=== PATIENT | male | born 1935 | race Caucasian/White ===

== ENCOUNTER → 2016-12-11 | Outpatient (CLI) | payer MEDICARE ==
[2016-12-11 11:29] LABS: ABSOLUTE BASOPHILS # (AUTO) 0.1 10^3/uL (0.0-0.2); ABSOLUTE EOSINOPHILS # (AUTO) 0.1 10^3/uL (0.0-0.6); ABSOLUTE LYMPHOCYTES (AUTO) 1.3 10^3/uL (0.5-4.7); ABSOLUTE MONOCYTES (AUTO) 0.5 10^3/uL (0.1-1.4); ABSOLUTE NEUT (AUTO) 3.5 10^3/uL (1.7-8.2); BASOPHILS % (AUTO) 0.9 % (0-2); EOSINOPHILS % (AUTO) 2.2 % (0-6); HEMOGLOBIN 16.8 g/dL (13.5-17.0); HGB HCT DIFFERENCE -0.6; LYMPHOCYTES % (AUTO) 23.3 % (13-45); MEAN CORPUSCULAR HEMOGLOBIN 31.4 pg (27.0-33.4); MEAN CORPUSCULAR HGB CONC 32.9 g/dL (32.0-36.0); MEAN CORPUSCULAR VOLUME 96 fl (80-97); MONOCYTES % (AUTO) 9.3 % (3-13); RED BLOOD COUNT 5.34 10^6/uL (4.35-5.55); RED CELL DISTRIBUTION WIDTH 16.8 % (11.5-14.0); SEGMENTED NEUTROPHILS % (AUTO) 64.3 % (42-78); WHITE BLOOD COUNT 5.4 10^3/uL (4.0-10.5)
[2016-12-11 11:30] LABS: APPEARANCE,URINE CLEAR; BILIRUBIN,URINE NEGATIVE (NEGATIVE); GLUCOSE, URINE NEGATIVE (NEGATIVE); KETONES,URINE NEGATIVE (NEGATIVE); LEUKOCYTE ESTERASE,URINE NEGATIVE (NEGATIVE); NITRITE,URINE NEGATIVE (NEGATIVE); PROTEIN,URINE 30 mg/dL (NEGATIVE); URINE SPECIFIC GRAVITY 1.011; UROBILINOGEN,URINE NEGATIVE mg/dL (<2.0)
[2016-12-11 11:50] LABS: ALANINE AMINOTRANSFERASE 40 U/L (21-72); ALBUMIN 3.8 g/dL (3.5-5.0); ALKALINE PHOSPHATASE 102 U/L (38-126); ANION GAP 12 (5-19); ASPARTATE AMINO TRANSFERASE 27 U/L (17-59); BILIRUBIN,TOTAL 0.9 mg/dL (0.2-1.3); BLOOD UREA NITROGEN 19 mg/dL (7-20); CALCIUM 9.4 mg/dL (8.4-10.2); CARBON DIOXIDE 22 mmol/L (22-30); CHLORIDE 106 mmol/L (98-107); CREATININE RESULT 1.07 mg/dL (0.52-1.25); GLUCOSE 119 mg/dL (75-110); POTASSIUM 4.4 mmol/L (3.6-5.0); SODIUM 140.3 mmol/L (137-145)
== END ==
LOC: OD 10:24
PROVIDERS: ATTEND Internal Medicine Cardiovascular Disease
DX: Z79.01 Long term (current) use of anticoagulants (principal); Z79.899 Other long term (current) drug therapy
CPT/HCPCS: 36415; 80048; 80076; 81001; 82272; 83735; 85025; 85730

== ENCOUNTER → 2017-03-13 | Outpatient (CLI) | payer MEDICARE ==
[2017-03-13 11:01] LABS: APPEARANCE,URINE CLEAR; BILIRUBIN,URINE NEGATIVE (NEGATIVE); GLUCOSE, URINE NEGATIVE (NEGATIVE); KETONES,URINE NEGATIVE (NEGATIVE); LEUKOCYTE ESTERASE,URINE NEGATIVE (NEGATIVE); NITRITE,URINE NEGATIVE (NEGATIVE); PROTEIN,URINE NEGATIVE (NEGATIVE); UROBILINOGEN,URINE NEGATIVE mg/dL (<2.0)
[2017-03-13 11:28] LABS: ABSOLUTE BASOPHILS # (AUTO) 0.1 10^3/uL (0.0-0.2); ABSOLUTE EOSINOPHILS # (AUTO) 0.1 10^3/uL (0.0-0.6); ABSOLUTE LYMPHOCYTES (AUTO) 1.4 10^3/uL (0.5-4.7); ABSOLUTE MONOCYTES (AUTO) 0.5 10^3/uL (0.1-1.4); ABSOLUTE NEUT (AUTO) 3.4 10^3/uL (1.7-8.2); BASOPHILS % (AUTO) 1.4 % (0-2); EOSINOPHILS % (AUTO) 2.4 % (0-6); HEMOGLOBIN 17.2 g/dL (13.5-17.0); HGB HCT DIFFERENCE 0.6; LYMPHOCYTES % (AUTO) 25.7 % (13-45); MEAN CORPUSCULAR HEMOGLOBIN 31.9 pg (27.0-33.4); MEAN CORPUSCULAR HGB CONC 33.7 g/dL (32.0-36.0); MEAN CORPUSCULAR VOLUME 95 fl (80-97); MONOCYTES % (AUTO) 9.5 % (3-13); RED BLOOD COUNT 5.39 10^6/uL (4.35-5.55); RED CELL DISTRIBUTION WIDTH 15.8 % (11.5-14.0); WHITE BLOOD COUNT 5.6 10^3/uL (4.0-10.5)
[2017-03-13 11:47] LABS: ALANINE AMINOTRANSFERASE 56 U/L (21-72); ALBUMIN 4.1 g/dL (3.5-5.0); ALKALINE PHOSPHATASE 126 U/L (38-126); ANION GAP 14 (5-19); ASPARTATE AMINO TRANSFERASE 46 U/L (17-59); BILIRUBIN,DIRECT 0.4 mg/dL (0.0-0.4); BILIRUBIN,TOTAL 0.9 mg/dL (0.2-1.3); BLOOD UREA NITROGEN 25 mg/dL (7-20); CALCIUM 9.4 mg/dL (8.4-10.2); CARBON DIOXIDE 25 mmol/L (22-30); CHLORIDE 105 mmol/L (98-107); CREATININE RESULT 1.12 mg/dL (0.52-1.25); GLUCOSE 118 mg/dL (75-110); POTASSIUM 4.7 mmol/L (3.6-5.0); SODIUM 143.6 mmol/L (137-145); TOTAL PROTEIN 7.5 g/dL (6.3-8.2)
== END ==
LOC: OD 10:12
PROVIDERS: ATTEND Internal Medicine Cardiovascular Disease
DX: Z79.01 Long term (current) use of anticoagulants (principal); Z79.899 Other long term (current) drug therapy
CPT/HCPCS: 36415; 80048; 80076; 81001; 82272; 85025; 85730

== ENCOUNTER 2017-05-20 23:35 | Emergency (ER) | payer BC, MEDICARE ==
[2017-05-21] MEDS ORDERED: LIDOCAINE 0.5%/EPINEPHRINE INJ 50 ML VIAL INJ ONE (01:53)
--- NOTE | 2017-05-21 01:55 | ER Document Report ---
ED Wound - General Chief Complaint: Fall, Head laceration Stated Complaint: FALL/HEAD LACERATION Time Seen by Provider: 05/21/17 01:48 Notes: Patient is an 82-year-old male who comes emergency department for chief complaint of mechanical fall with injury to the back of his head, he states that he went back into the house after watching fireworks, tripped, and fell against a shelf, hitting his head on the shelf. He denies fall to the ground, he denies any other injuries or locations of pain. He denies passing out, he is here with his [id number]. He denies vomiting, she states he is at his normal mental status. Patient has atrial fibrillation and takes Eliquis. Patient denies any focal numbness or weakness, incontinence, visual changes, or any other complaints. Tetanus UTD. TRAVEL OUTSIDE OF THE [place] IN LAST 30 DAYS: No - Related Data Allergies/Adverse Reactions: No Known Allergies Allergy (Verified 10/14/15 17:31) Past Medical History - General Information source: Patient - Social History Smoking Status: Never Smoker Chew tobacco use (# tins/day): No Drug Abuse: None Lives with: Family Family History: Reviewed & Not Pertinent - Past Medical History Cardiac Medical History: Reports: Hx Atrial Fibrillation, Hx Congestive Heart Failure, Hx Coronary Artery Disease, Hx Hypercholesterolemia, Hx Hypertension Denies: Hx Heart Attack Pulmonary Medical History: Reports: Hx Bronchitis Denies: Hx Asthma, Hx COPD, Hx Pneumonia Neurological Medical History: Denies: Hx Cerebrovascular Accident, Hx Seizures Renal/ Medical History: Denies: Hx Peritoneal Dialysis GI Medical History: Musculoskeltal Medical History: Reports Hx Arthritis Skin Medical History: Denies Hx MRSA Psychiatric Medical History: Reports: Hx Depression Infectious Medical History: Past Surgical History: Reports: Hx Orthopedic Surgery, Hx Pacemaker - Immunizations Immunizations up to date: Yes Hx Diphtheria, Pertussis, Tetanus Vaccination: Yes - pt thinks last tetanus was less than 5 years ago Hx Pneumococcal Vaccination: 08/17/09 Review of Systems - Review of Systems Constitutional: No symptoms reported EENT: No symptoms reported Cardiovascular: No symptoms reported Respiratory: No symptoms reported Gastrointestinal: No symptoms reported Genitourinary: No symptoms reported Male Genitourinary: No symptoms reported Musculoskeletal: See HPI Skin: See HPI Hematologic/Lymphatic: No symptoms reported Neurological/Psychological: No symptoms reported Physical Exam - Vital signs Vitals: Temp Pulse Resp BP Pulse Ox 98.2 F 60 16 114/72 97 05/21/17 00:57 05/21/17 00:57 05/21/17 00:57 05/21/17 00:57 05/21/17 00:57 Interpretation: Normal - General General appearance: Appears well, Alert In distress: None - Patient alert, smiling, talkative, oriented, well-appearing - HEENT Head: Normocephalic. No: Atraumatic - 2 cm vertical wound over the superior occipital area of the scalp. Mild surrounding ecchymosis, no other abnormalities noted Eyes: Normal Conjunctiva: Normal Extraocular movements intact: Yes Eyelashes: Normal Pupils: PERRL Ears: Normal External canal: Normal Tympanic membrane: Normal Sinus: Normal Nasal: Normal Mucous membranes: Normal Pharynx: Normal Neck: Normal - Respiratory Respiratory status: No respiratory distress Chest status: Nontender Breath sounds: Normal. No: Decreased air movement, Wheezing Chest palpation: Normal - Cardiovascular Rhythm: Regular. No: Tachycardia Heart sounds: Normal auscultation, S1 appreciated, S2 appreciated Murmur: No - Abdominal Inspection: Normal Distension: No distension Bowel sounds: Normal Tenderness: Nontender. No: Tender Organomegaly: No organomegaly - Back Back: Normal, Nontender. No: Vertebra tenderness - Cervical, thoracic, lumbar exam, moves all extremities without difficulty and full range of motion, normal distal neurovascular exam, no saddle anesthesia - Extremities General upper extremity: Normal inspection, Nontender, Normal color, Normal ROM , Normal temperature General lower extremity: Normal inspection, Nontender, Normal color, Normal ROM , Normal temperature, Normal weight bearing. No: Triston's sign - Neurological Neuro grossly intact: Yes Cognition: Normal. No: Confused, Inattentive Orientation: AAOx4. No: Disoriented to person, Disoriented to place, Disoriented to time, Disoriented to events Carol Coma Scale Eye Opening: Spontaneous Argillite Coma Scale Verbal: Oriented Carol Coma Scale Motor: Obeys Commands Craol Coma Scale Total: 15 Speech: Normal Cranial nerves: Normal Cerebellar coordination: Normal Motor strength normal: LUE, RUE, LLE, RLE Additional motor exam normals: Equal electric range assembler Sensory: Normal - Psychological Associated symptoms: Normal affect, Normal mood - Skin Skin Temperature: Warm Skin Moisture: Dry Skin Color: Normal Course - Re-evaluation Re-evalutation: Head CT performed because of the wound and blood thinner use. Neurological exam normal. No concerning neurological symptoms. Repaired with michelle without any difficulty. Discussed wound care, discussed head injury precautions in detail with patient and daughter, discussed close follow-up and return precautions. They state understanding and agreement. - Vital Signs Vital signs: Temp Pulse Resp BP Pulse Ox 98.2 F 62 16 117/69 97 05/21/17 00:57 05/21/17 03:27 05/21/17 03:27 05/21/17 03:05/21/17 03:27 Procedures - Laceration/Wound Repair superior occipital Wound length (cm): 2 Wound's Depth, Shape: Linear Laceration pre-procedure: Sterile PPE donned, Sterile drapes applied, Shur- Clens applied Anesthetic type: 1% Lidocaine w/epi Volume Anesthetic (mLs): 3 Wound explored: Clean, No foreign body removed Irrigated w/ Saline (mLs): 40 Wound Repaired With: Colcord Number of Sutures: 3 - michelle Layer Closure?: No Post-procedure NV exam normal: Yes Complications: No Discharge - Discharge Clinical Impression: Scalp laceration Qualifiers: Encounter type: initial encounter Qualified Code(s): S01.01XA - Laceration without foreign body of scalp, initial encounter Condition: Stable Disposition: HOME, SELF-CARE Additional Instructions: Cat scan imaging shows no concerning abnormality. Colcord need to be removed in 1 week at a medical facility, keep clean, clean with soap and water, avoid soaking. Follow-up with primary care. Return immediately for any concerning symptoms, see additional details listed with head injury precautions below. Head Injury Precautions At this point, there is no evidence that your head injury is serious. Observation is necessary, however. Take only clear liquids for the first few hours, unless told otherwise by the doctor. If no pain medication was prescribed, you may take acetaminophen according to the directions on the bottle. Do not take any medication that may alter your level of alertness (unless you've discussed it with the doctor first) . Limit activity for the first 24 hours. Bed rest is best. During the first 24 hours, check to see approximately every two to three hours that the patient is easily arousable, responds normally, and can perform common tasks such as walking without difficulty. Contact your doctor or go to the hospital if any of the following things occur: Persistent vomiting, difficulty in arousing the patient, worsening or continued headache, or failure to improve as expected. Head injuries can cause symptoms that persist for a few days or even a few weeks. Referrals: GISELLE DENSON MD [Primary Care Provider] - Follow up as needed
--- NOTE | 2017-05-21 02:27 | RADIOLOGY REPORT (SQ) ---
EXAM DESCRIPTION: CT HEAD WITHOUT COMPLETED DATE/TIME: 05/21/2017 2:07 am REASON FOR STUDY: head injury, laceration, on Eliquis COMPARISON: 11.28.15 TECHNIQUE: Axial images acquired through the brain without intravenous contrast. Images reviewed wi th bone, brain and subdural windows. Images stored on PACS. All CT scanners at this facility use dose modulation, iterative reconstruction, and/or weight based d osing when appropriate to reduce radiation dose to as low as reasonably achievable (ALARA). [facility]: Dose Right [facility]: CareDose [facility]: Dose Right [facility]: Teradose 4D [facility]: Smart [employer] RADIATION DOSE: Up-to-date CT equipment and radiation dose reduction techniques were employed. CTDIv ol: 55.3 mGy. DLP: 996 mGy-cm. mGy. LIMITATIONS: None. FINDINGS: VENTRICLES: Normal size and contour. CEREBRUM: No masses. No hemorrhage. No midline shift. Normal rodriguez/white matter differentiation. N o evidence for acute infarction. Mild -moderate cerebral volume loss. Mild white matter microangiop athy. Small lacunar infarct of the left putaminal. The CEREBELLUM: No masses. No hemorrhage. No alteration of density. No evidence for acute infarction. EXTRAAXIAL SPACES: No fluid collections. No masses. ORBITS AND GLOBE: No intra- or extraconal masses. Normal contour of globe without masses. CALVARIUM: No fracture. PARANASAL SINUSES: No fluid or mucosal thickening. SOFT TISSUES: No mass or hematoma. OTHER: No other significant finding. IMPRESSION: No acute findings. TECHNICAL DOCUMENTATION: JOB ID: [id number] Quality ID # [id number]: Final reports with documentation of one or more dose reduction techniques (e.g., Au tomated exposure control, adjustment of the mA and/or kV according to patient size, use of iterative reconstruction technique) 2010 [employer]- All Rights Reserved
[2017-05-21 03:28] VITALS: BP 117/69
== END 2017-05-21 03:27 | disposition home or self-care (01) ==
LOC: ER 23:35
PROC: 0HQ0XZZ Repair Scalp Skin, External Approach (ICD-10-PCS; principal; 2017-05-20)
DX: S01.01XA Laceration without foreign body of scalp, initial encounter (principal); W22.03XA Walked into furniture, initial encounter; Y93.89 Activity, other specified; Y92.009 Unspecified place in unspecified non-institutional (private) residence as the place of occurrence of the external cause; I48.91 Unspecified atrial fibrillation; Z79.01 Long term (current) use of anticoagulants; I25.10 Atherosclerotic heart disease of native coronary artery without angina pectoris; I10 Essential (primary) hypertension
CPT/HCPCS: 99284; 70450; 12001; J3490

== ENCOUNTER → 2017-06-11 | Outpatient (CLI) | payer MEDICARE ==
[2017-06-11 12:20] LABS: HEMATOCRIT 50.1 % (37.9-51.0); HEMOGLOBIN 17.4 g/dL (13.5-17.0); HGB HCT DIFFERENCE 2.1; MEAN CORPUSCULAR HEMOGLOBIN 32.6 pg (27.0-33.4); MEAN CORPUSCULAR HGB CONC 34.7 g/dL (32.0-36.0); MEAN CORPUSCULAR VOLUME 94 fl (80-97); RED BLOOD COUNT 5.34 10^6/uL (4.35-5.55); RED CELL DISTRIBUTION WIDTH 16.6 % (11.5-14.0); WHITE BLOOD COUNT 6.3 10^3/uL (4.0-10.5)
[2017-06-11 12:36] LABS: APPEARANCE,URINE CLEAR; BILIRUBIN,URINE NEGATIVE (NEGATIVE); GLUCOSE, URINE NEGATIVE (NEGATIVE); KETONES,URINE NEGATIVE (NEGATIVE); LEUKOCYTE ESTERASE,URINE NEGATIVE (NEGATIVE); NITRITE,URINE NEGATIVE (NEGATIVE); PROTEIN,URINE NEGATIVE (NEGATIVE); URINE SPECIFIC GRAVITY 1.009; UROBILINOGEN,URINE NEGATIVE mg/dL (<2.0)
[2017-06-11 12:46] LABS: ALANINE AMINOTRANSFERASE 33 U/L (21-72); ALBUMIN 4.3 g/dL (3.5-5.0); ALKALINE PHOSPHATASE 136 U/L (38-126); ANION GAP 13 (5-19); ASPARTATE AMINO TRANSFERASE 25 U/L (17-59); BILIRUBIN,DIRECT 0.3 mg/dL (0.0-0.4); BLOOD UREA NITROGEN 18 mg/dL (7-20); CALCIUM 9.3 mg/dL (8.4-10.2); CARBON DIOXIDE 27 mmol/L (22-30); CHLORIDE 101 mmol/L (98-107); CREATININE RESULT 1.17 mg/dL (0.52-1.25); GLUCOSE 154 mg/dL (75-110); POTASSIUM 4.6 mmol/L (3.6-5.0); SODIUM 141.3 mmol/L (137-145); TOTAL PROTEIN 7.8 g/dL (6.3-8.2)
== END ==
LOC: OD 11:12
PROVIDERS: ATTEND Internal Medicine Cardiovascular Disease
DX: Z79.01 Long term (current) use of anticoagulants (principal); Z79.899 Other long term (current) drug therapy
CPT/HCPCS: 36415; 80048; 80076; 81001; 82272; 85027; 85730

== ENCOUNTER → 2017-12-19 | Outpatient (CLI) | payer MEDICARE | LOC: LAB 17:55 | PROVIDERS: ATTEND Internal Medicine Cardiovascular Disease | DX: I48.2 Chronic atrial fibrillation (principal); Z79.01 Long term (current) use of anticoagulants; Z79.899 Other long term (current) drug therapy | CPT/HCPCS: 36415; 85730 ==

== ENCOUNTER → 2017-12-19 | Outpatient (CLI) | payer MEDICARE ==
[2017-12-19 15:34] LABS: MEAN CORPUSCULAR HEMOGLOBIN 31.8 pg (27.0-33.4); MEAN CORPUSCULAR HGB CONC 33.8 g/dL (32.0-36.0); MEAN CORPUSCULAR VOLUME 94 fl (80-97); PLATELET COUNT 151 10^3/uL (150-450); RED BLOOD COUNT 5.97 10^6/uL (4.35-5.55); RED CELL DISTRIBUTION WIDTH 16.2 % (11.5-14.0); WHITE BLOOD COUNT 5.2 10^3/uL (4.0-10.5)
[2017-12-19 15:44] LABS: HEMATOCRIT 56.1 % (37.9-51.0)
[2017-12-19 15:53] LABS: ALANINE AMINOTRANSFERASE 59 U/L (21-72); ALBUMIN 4.5 g/dL (3.5-5.0); ALKALINE PHOSPHATASE 111 U/L (38-126); ANION GAP 10 (5-19); ASPARTATE AMINO TRANSFERASE 39 U/L (17-59); BILIRUBIN,DIRECT 0.5 mg/dL (0.0-0.4); BILIRUBIN,TOTAL 0.8 mg/dL (0.2-1.3); BLOOD UREA NITROGEN 31 mg/dL (7-20); CALCIUM 10.1 mg/dL (8.4-10.2); CARBON DIOXIDE 29 mmol/L (22-30); CHLORIDE 104 mmol/L (98-107); GLUCOSE 125 mg/dL (75-110); POTASSIUM 4.5 mmol/L (3.6-5.0); SODIUM 143.3 mmol/L (137-145); TOTAL PROTEIN 7.7 g/dL (6.3-8.2)
[2017-12-19 16:18] LABS: APPEARANCE,URINE CLEAR; BILIRUBIN,URINE NEGATIVE (NEGATIVE); COLOR,URINE YELLOW; GLUCOSE, URINE NEGATIVE (NEGATIVE); KETONES,URINE NEGATIVE (NEGATIVE); LEUKOCYTE ESTERASE,URINE NEGATIVE (NEGATIVE); NITRITE,URINE NEGATIVE (NEGATIVE); PROTEIN,URINE NEGATIVE (NEGATIVE); UROBILINOGEN,URINE NEGATIVE mg/dL (<2.0)
== END ==
LOC: OD 14:25
PROVIDERS: ATTEND Internal Medicine Cardiovascular Disease
DX: I48.2 Chronic atrial fibrillation (principal); Z79.01 Long term (current) use of anticoagulants; Z79.899 Other long term (current) drug therapy
CPT/HCPCS: 36415; 80048; 80076; 81001; 82272; 85027

== ENCOUNTER → 2018-02-19 | Outpatient (CLI) | payer MEDICARE ==
[2018-02-19 14:06] LABS: APPEARANCE,URINE CLEAR; BILIRUBIN,URINE NEGATIVE (NEGATIVE); COLOR,URINE YELLOW; GLUCOSE, URINE NEGATIVE (NEGATIVE); KETONES,URINE NEGATIVE (NEGATIVE); LEUKOCYTE ESTERASE,URINE NEGATIVE (NEGATIVE); NITRITE,URINE NEGATIVE (NEGATIVE); PROTEIN,URINE NEGATIVE (NEGATIVE); URINE SPECIFIC GRAVITY 1.011; UROBILINOGEN,URINE NEGATIVE mg/dL (<2.0)
[2018-02-19 14:09] LABS: ALANINE AMINOTRANSFERASE 37 U/L (21-72); ALBUMIN 4.3 g/dL (3.5-5.0); ALKALINE PHOSPHATASE 100 U/L (38-126); ANION GAP 10 (5-19); ASPARTATE AMINO TRANSFERASE 27 U/L (17-59); BILIRUBIN,DIRECT 0.2 mg/dL (0.0-0.4); BILIRUBIN,TOTAL 0.5 mg/dL (0.2-1.3); BLOOD UREA NITROGEN 28 mg/dL (7-20); CARBON DIOXIDE 30 mmol/L (22-30); CHLORIDE 101 mmol/L (98-107); GLUCOSE 104 mg/dL (75-110); POTASSIUM 5.3 mmol/L (3.6-5.0); SODIUM 140.6 mmol/L (137-145); TOTAL PROTEIN 7.3 g/dL (6.3-8.2)
== END ==
LOC: OD 12:44
PROVIDERS: ATTEND Internal Medicine Cardiovascular Disease
DX: I48.2 Chronic atrial fibrillation (principal); Z79.01 Long term (current) use of anticoagulants; Z79.899 Other long term (current) drug therapy
CPT/HCPCS: 36415; 80048; 80076; 81001; 82272; 85730

== ENCOUNTER → 2018-05-25 | Outpatient (CLI) | payer MEDICARE ==
[2018-05-25 16:39] LABS: HEMATOCRIT 52.5 % (37.9-51.0); HEMOGLOBIN 17.9 g/dL (13.5-17.0); MEAN CORPUSCULAR HEMOGLOBIN 32.5 pg (27.0-33.4); MEAN CORPUSCULAR HGB CONC 34.1 g/dL (32.0-36.0); MEAN CORPUSCULAR VOLUME 95 fl (80-97); PLATELET COUNT 162 10^3/uL (150-450); RED BLOOD COUNT 5.52 10^6/uL (4.35-5.55); RED CELL DISTRIBUTION WIDTH 15.3 % (11.5-14.0); WHITE BLOOD COUNT 5.6 10^3/uL (4.0-10.5)
[2018-05-25 17:41] LABS: ALANINE AMINOTRANSFERASE 33 U/L (21-72); ALBUMIN 4.2 g/dL (3.5-5.0); ALKALINE PHOSPHATASE 99 U/L (38-126); ANION GAP 13 (5-19); ASPARTATE AMINO TRANSFERASE 27 U/L (17-59); BILIRUBIN,DIRECT 0.4 mg/dL (0.0-0.4); BILIRUBIN,TOTAL 0.8 mg/dL (0.2-1.3); BLOOD UREA NITROGEN 20 mg/dL (7-20); CALCIUM 9.6 mg/dL (8.4-10.2); CARBON DIOXIDE 25 mmol/L (22-30); CHLORIDE 105 mmol/L (98-107); GLUCOSE 166 mg/dL (75-110); POTASSIUM 4.9 mmol/L (3.6-5.0); SODIUM 142.8 mmol/L (137-145); TOTAL PROTEIN 7.5 g/dL (6.3-8.2)
[2018-05-26 17:59] LABS: APPEARANCE,URINE CLEAR; BILIRUBIN,URINE NEGATIVE (NEGATIVE); COLOR,URINE YELLOW; GLUCOSE, URINE NEGATIVE (NEGATIVE); KETONES,URINE NEGATIVE (NEGATIVE); LEUKOCYTE ESTERASE,URINE NEGATIVE (NEGATIVE); NITRITE,URINE NEGATIVE (NEGATIVE); PROTEIN,URINE NEGATIVE (NEGATIVE); URINE SPECIFIC GRAVITY 1.012; UROBILINOGEN,URINE NEGATIVE mg/dL (<2.0)
== END ==
LOC: OD 15:20
PROVIDERS: ATTEND Internal Medicine Cardiovascular Disease
DX: I48.2 Chronic atrial fibrillation (principal); Z79.01 Long term (current) use of anticoagulants; Z79.899 Other long term (current) drug therapy
CPT/HCPCS: 36415; 80048; 80076; 81001; 82272; 85027; 85730

== ENCOUNTER 2018-08-21 16:36 | Observation (INO) | payer MEDICARE ==
[2018-08-21 17:54] LABS: ABSOLUTE EOSINOPHILS # (AUTO) 0.2 10^3/uL (0.0-0.6); ABSOLUTE LYMPHOCYTES (AUTO) 1.7 10^3/uL (0.5-4.7); ABSOLUTE MONOCYTES (AUTO) 0.8 10^3/uL (0.1-1.4); ABSOLUTE NEUT (AUTO) 4.4 10^3/uL (1.7-8.2); BASOPHILS % (AUTO) 0.6 % (0-2); EOSINOPHILS % (AUTO) 2.3 % (0-6); HEMATOCRIT 45.9 % (37.9-51.0); HEMOGLOBIN 15.9 g/dL (13.5-17.0); MEAN CORPUSCULAR HEMOGLOBIN 32.7 pg (27.0-33.4); MEAN CORPUSCULAR HGB CONC 34.6 g/dL (32.0-36.0); MEAN CORPUSCULAR VOLUME 94 fl (80-97); MONOCYTES % (AUTO) 11.1 % (3-13); PLATELET COUNT 134 10^3/uL (150-450); RED BLOOD COUNT 4.86 10^6/uL (4.35-5.55); RED CELL DISTRIBUTION WIDTH 16.3 % (11.5-14.0); TOTAL CELLS COUNTED % (AUTO) 100 %
--- NOTE | 2018-08-21 17:55 | ER Document Report ---
ED General - General Chief Complaint: Back Pain Stated Complaint: BACK PAIN Time Seen by Provider: 08/21/18 16:55 Mode of Arrival: Medic Information source: Patient, Relative Notes: This is an 83-year-old man with a hypertension, chronic lower extremity swelling (left greater than right), CHF, atrial fibrillation (chronic Eliquis) who presents to the emergency room with inability to ambulate. Patient states he did have pain in his back earlier but denies any pain right now. Patient's sister states that he is not been able to ambulate for 3 weeks. Patient does live alone. He states he has had increasing swelling of the lower extremities and is just unable to get up. Current Meds: Diltiazem ER 120 daily Digoxin: 0.125 daily Asp 81 mg daily Metoprolol 25 mg daily Allopurinol 300 mg daily Eliquis 5 mg daily Lasix 40 mg daily Primary CARE doctor: Dr. Caraballo TRAVEL OUTSIDE OF THE [place] IN LAST 30 DAYS: No - HPI Onset: Last week Onset/Duration: Gradual Quality of pain: Dull Severity: Mild Pain Level: 1 Associated symptoms: denies: Chest pain, Shortness of breath Exacerbated by: Denies Relieved by: Denies Similar symptoms previously: Yes Recently seen / treated by doctor: No - Related Data Allergies/Adverse Reactions: No Known Allergies Allergy (Verified 08/21/18 16:51) Past Medical History - General Information source: Patient - Social History Smoking Status: Never Smoker Cigarette use (# per day): No Chew tobacco use (# tins/day): No Frequency of alcohol use: None Drug Abuse: None Lives with: Family Family History: Reviewed & Not Pertinent Patient has suicidal ideation: No Patient has homicidal ideation: No - Past Medical History Cardiac Medical History: Reports: Hx Atrial Fibrillation, Hx Congestive Heart Failure, Hx Coronary Artery Disease, Hx Hypercholesterolemia, Hx Hypertension Denies: Hx Heart Attack Pulmonary Medical History: Reports: Hx Bronchitis Denies: Hx Asthma, Hx COPD, Hx Pneumonia Neurological Medical History: Denies: Hx Cerebrovascular Accident, Hx Seizures Renal/ Medical History: Denies: Hx Peritoneal Dialysis GI Medical History: Musculoskeletal Medical History: Reports Hx Arthritis Skin Medical History: Denies Hx MRSA Psychiatric Medical History: Reports: Hx Depression Infectious Medical History: Past Surgical History: Reports: Hx Orthopedic Surgery, Hx Pacemaker - Immunizations Immunizations up to date: Yes Hx Diphtheria, Pertussis, Tetanus Vaccination: Yes - pt thinks last tetanus was less than 5 years ago Hx Pneumococcal Vaccination: 08/17/09 Review of Systems - Review of Systems Constitutional: denies: Chills, Fever EENT: No symptoms reported Cardiovascular: No symptoms reported Respiratory: No symptoms reported Gastrointestinal: No symptoms reported Genitourinary: No symptoms reported Male Genitourinary: No symptoms reported Musculoskeletal: See HPI Skin: See HPI Hematologic/Lymphatic: No symptoms reported Neurological/Psychological: No symptoms reported Physical Exam - Vital signs Vitals: Temp Pulse Resp BP Pulse Ox 99.8 F 62 18 104/48 L 97 08/21/18 16:42 08/21/18 16:42 08/21/18 16:42 08/21/18 16:42 08/21/18 16:42 Notes: Physical exam: GENERAL: Patient is alert and oriented x3, answering questions, no acute distress HEAD: Atraumatic, normocephalic. EYES: Pupils equal round and reactive to light, extraocular movements intact, sclera anicteric, conjunctiva are normal. ENT: TMs normal, nares patent, oropharynx clear without exudates. Moist mucous membranes. NECK: Normal range of motion, supple without obvious mass or JVD. LUNGS: Breath sounds clear to auscultation bilaterally and equal. No wheezes rales or rhonchi. HEART: Regular rate and rhythm without murmurs, rubs or gallops. ABDOMEN: Soft, normoactive bowel sounds. No tenderness to palpation. No guarding, no rebound. No masses appreciated. EXTREMITIES: She has marked swelling of both lower extremities: Left greater than right. He has been evaluated for this in the past. He is limited for range of motion because of the marked swelling. Sensory is intact. NEUROLOGICAL: Cranial nerves II through XII grossly intact. Normal speech, moving all extremities. PSYCH: Normal mood, normal affect. SKIN: Warm, Dry, normal turgor, no rashes or lesions noted. Course - Vital Signs Vital signs: Temp Pulse Resp BP Pulse Ox 97.8 F 62 16 123/75 96 08/21/18 21:39 08/21/18 16:42 08/21/18 21:01 08/21/18 21:00 08/21/18 21:01 - Laboratory Result Diagrams: 08/21/18 17:41 08/21/18 17:41 Laboratory results interpreted by me: 08/21/18 08/21/18 08/21/18 17:41 17:41 17:41 RDW 16.3 H Plt Count 134 L BUN 23 H Est GFR (Non-Af Amer) 56 L Glucose 122 H Direct Bilirubin 0.5 H NT-Pro-B Natriuret Pep 1690 H Discharge - Discharge Clinical Impression: Decompensated heart failure, Ambulatory dysfunction Condition: Stable Disposition: ADMITTED INPATIENT Admitting Provider: Ilya Walker is covering over the weekend Unit Admitted: Telemetry
--- NOTE | 2018-08-21 18:16 | RADIOLOGY REPORT (SQ) ---
EXAM DESCRIPTION: CHEST SINGLE VIEW COMPLETED DATE/TIME: 08/21/2018 6:03 pm REASON FOR STUDY: increased swelling COMPARISON: AP CHEST 10/17/2015, 10/14/2015 EXAM PARAMETERS: NUMBER OF VIEWS: One view. TECHNIQUE: Single frontal radiographic view of the chest acquired. RADIATION DOSE: NA LIMITATIONS: None. FINDINGS: LUNGS AND PLEURA: No opacities, masses or pneumothorax. No pleural effusion. MEDIASTINUM AND HILAR STRUCTURES: No masses. Contour normal. HEART AND VASCULAR STRUCTURES: Stable moderate cardiomegaly BONES: No acute findings. HARDWARE: Left subclavian single lead pacemaker unchanged OTHER: No other significant finding. IMPRESSION: No acute findings. Stable cardiomegaly and unchanged left-sided single lead pacemaker TECHNICAL DOCUMENTATION: JOB ID: [id number] 1968 [employer]- All Rights Reserved Reading location - IP/workstation name: [email or web address]
[2018-08-21 18:57] LABS: ALANINE AMINOTRANSFERASE 36 U/L (21-72); ALBUMIN 3.7 g/dL (3.5-5.0); ALKALINE PHOSPHATASE 93 U/L (38-126); ANION GAP 8 (5-19); ASPARTATE AMINO TRANSFERASE 32 U/L (17-59); BILIRUBIN,DIRECT 0.5 mg/dL (0.0-0.4); BILIRUBIN,TOTAL 0.8 mg/dL (0.2-1.3); BLOOD UREA NITROGEN 23 mg/dL (7-20); CARBON DIOXIDE 28 mmol/L (22-30); CHLORIDE 103 mmol/L (98-107); GLUCOSE 122 mg/dL (75-110); POTASSIUM 4.4 mmol/L (3.6-5.0); SODIUM 138.8 mmol/L (137-145); TOTAL PROTEIN 6.9 g/dL (6.3-8.2)
--- NOTE | 2018-08-21 19:06 | RADIOLOGY REPORT (SQ) ---
EXAM DESCRIPTION: CT LUMBAR SPINE WITHOUT COMPLETED DATE/TIME: 08/21/2018 6:10 pm REASON FOR STUDY: back pain COMPARISON: CT thoracic spine same date TECHNIQUE: Axial images acquired through the lumbar spine without intravenous contrast. Images revi ewed with lung, soft tissue and bone windows. Reconstructed coronal and sagittal MPR images reviewed . All images stored on PACS. All CT scanners at this facility use dose modulation, iterative reconstruction, and/or weight based d osing when appropriate to reduce radiation dose to as low as reasonably achievable (ALARA). [facility]: Dose Right [facility]: CareDose [facility]: Dose Right [facility]: Teradose 4D [facility]: [employer] RADIATION DOSE: 26 mGy. LIMITATIONS: None. FINDINGS: SEGMENTATION: Normal. No transitional anatomy. ALIGNMENT: Normal. VERTEBRAL BODIES: No fractures. No dislocation. No acute findings. DISCS: Diffuse degenerative disc changes with disc space loss of height throughout the lumbar spine. No significant central or foraminal encroachment T11-12, T12-L1, or L1-2. At L2-3, mild central canal stenosis results from broad diffuse disc bulge. There is mild bilateral inferior foraminal narrowing. At L3-4, mild central canal stenosis results from mild diffuse disc bulge facet and ligament hypertro phy. Mild bilateral foraminal narrowing is present. At L4-5, mild central canal stenosis results from broad diffuse posterior disc bulge and bulky bilate ral facet and ligament hypertrophy. Mild bilateral foraminal narrowing is present. At L5-S1, no significant central or foraminal narrowing is present. PEDICLES, TRANSVERSE PROCESSES: No fractures. No dislocation. No acute findings. FACETS, POSTERIOR ELEMENTS: No fractures. No dislocation. No spinal stenosis. HARDWARE: None in the spine. VISUALIZED RIBS: No fractures. SOFT TISSUES: No significant or acute finding in adjacent soft tissues. OTHER: No other significant finding. IMPRESSION: Mild diffuse degenerative changes. No acute fracture or malalignment. TECHNICAL DOCUMENTATION: JOB ID: [id number] Quality ID # [id number]: Final reports with documentation of one or more dose reduction techniques (e.g., Au tomated exposure control, adjustment of the mA and/or kV according to patient size, use of iterative reconstruction technique) 2010 [employer]- All Rights Reserved Reading location - IP/workstation name: [email or web address]
--- NOTE | 2018-08-21 19:08 | RADIOLOGY REPORT (SQ) ---
EXAM DESCRIPTION: CT THORACIC SPINE WITHOUT COMPLETED DATE/TIME: 08/21/2018 6:10 pm REASON FOR STUDY: back pain COMPARISON: CT lumbar spine same date TECHNIQUE: Axial images acquired through the thoracic spine without intravenous contrast. Images re viewed with lung, soft tissue and bone windows. Reconstructed coronal and sagittal MPR images review ed. Images stored on PACS. All CT scanners at this facility use dose modulation, iterative reconstruction, and/or weight based d osing when appropriate to reduce radiation dose to as low as reasonably achievable (ALARA). [facility]: Dose Right [facility]: CareDose [facility]: Dose Right [facility]: Teradose 4D [facility]: [employer] RADIATION DOSE: CT Rad equipment meets quality standard of care and radiation dose reduction techniq ues were employed. CTDIvol: 38.8 mGy. DLP: 1461 mGy-cm. mGy. LIMITATIONS: None. FINDINGS: VISUALIZED LUNGS: No acute opacities. No pneumothorax. SOFT TISSUES: No soft tissue swelling. No masses. VERTEBRAL BODIES: No fractures. No dislocation. No acute findings. DISCS: Diffuse disc space loss of height with vertebral body endplate sclerosis. No bony central or foraminal stenosis. ALIGNMENT: Normal. TRANSVERSE PROCESSES, POSTERIOR ELEMENTS: No fractures. No dislocation. No acute findings. HARDWARE: None in the spine. VISUALIZED RIBS: No fractures. OTHER: No other significant finding. IMPRESSION: Diffuse degenerative disc changes without significant thoracic spine central canal steno sis. No acute thoracic wedge compression deformity TECHNICAL DOCUMENTATION: JOB ID: [id number] Quality ID # [id number]: Final reports with documentation of one or more dose reduction techniques (e.g., Au tomated exposure control, adjustment of the mA and/or kV according to patient size, use of iterative reconstruction technique) 2010 [employer]- All Rights Reserved Reading location - IP/workstation name: [email or web address]
[2018-08-21] MEDS ORDERED: FUROSEMIDE INJ/PF 40 MG/4 ML SDV IV ONE (21:38)
[2018-08-21 23:12] LABS: INTERNATIONAL RATION (INR) 1.11; PROTHROMBIN TIME 14.9 SEC (11.4-15.4)
[2018-08-21 23:13] LABS: PARTIAL THROMBOPLASTIN TIME 36.9 SEC (23.5-35.8)
[2018-08-21 23:27] LABS: CREATINE KINASE MB 1.65 ng/mL (<4.55); TROPONIN I 0.016 ng/mL
[2018-08-21 23:33] LABS: FREE T4 (FREE THYROXINE) 1.13 ng/dL (0.78-2.19)
[2018-08-21 23:47] LABS: THYROID STIMULATING HORMONE 3.24 uIU/mL (0.47-4.68)
[2018-08-22 00:47] LABS: ARTERIAL BLOOD BASE EXCESS 1.2 mmol/L; ARTERIAL BLOOD H2CO3 1.09 mmol/L (1.05-1.35); ARTERIAL BLOOD HCO3 24.8 mmol/L (20-24); ARTERIAL BLOOD O2 SATURATION 96.3 % (94-98); ARTERIAL BLOOD PCO2 36.1 mmHg (35-45); ARTERIAL BLOOD PH 7.45 (7.35-7.45); ARTERIAL BLOOD PO2 79.7 mmHg (80-100); ARTERIAL BLOOD TOTAL CO2 25.9 mmol/L (23-27)
[2018-08-22 00:59] LABS: ARTERIAL BLOOD FIO2 ROOM AIR
[2018-08-22] MEDS ORDERED: ACETAMINOPHEN 325 MG TABLET PO PRN (01:06)
[2018-08-22 01:21] LABS: APPEARANCE,URINE CLEAR; BILIRUBIN,URINE NEGATIVE (NEGATIVE); COLOR,URINE COLORLESS; GLUCOSE, URINE NEGATIVE (NEGATIVE); KETONES,URINE NEGATIVE (NEGATIVE); LEUKOCYTE ESTERASE,URINE NEGATIVE (NEGATIVE); NITRITE,URINE NEGATIVE (NEGATIVE); PROTEIN,URINE NEGATIVE (NEGATIVE); URINE SPECIFIC GRAVITY 1.006; UROBILINOGEN,URINE NEGATIVE mg/dL (<2.0)
[2018-08-22 05:35] LABS: ABSOLUTE EOSINOPHILS # (AUTO) 0.1 10^3/uL (0.0-0.6); ABSOLUTE LYMPHOCYTES (AUTO) 1.6 10^3/uL (0.5-4.7); ABSOLUTE MONOCYTES (AUTO) 0.5 10^3/uL (0.1-1.4); ABSOLUTE NEUT (AUTO) 2.6 10^3/uL (1.7-8.2); BASOPHILS % (AUTO) 0.8 % (0-2); EOSINOPHILS % (AUTO) 2.6 % (0-6); HEMATOCRIT 47.8 % (37.9-51.0); HEMOGLOBIN 16.6 g/dL (13.5-17.0); LYMPHOCYTES % (AUTO) 33.2 % (13-45); MEAN CORPUSCULAR HEMOGLOBIN 33.1 pg (27.0-33.4); MEAN CORPUSCULAR HGB CONC 34.7 g/dL (32.0-36.0); MEAN CORPUSCULAR VOLUME 95 fl (80-97); MONOCYTES % (AUTO) 9.7 % (3-13); PLATELET COUNT 117 10^3/uL (150-450); RED BLOOD COUNT 5.02 10^6/uL (4.35-5.55); RED CELL DISTRIBUTION WIDTH 16.3 % (11.5-14.0); SEGMENTED NEUTROPHILS % (AUTO) 53.7 % (42-78); TOTAL CELLS COUNTED % (AUTO) 100 %; WHITE BLOOD COUNT 4.9 10^3/uL (4.0-10.5)
[2018-08-22 05:55] LABS: ALANINE AMINOTRANSFERASE 35 U/L (21-72); ALBUMIN 3.6 g/dL (3.5-5.0); ALKALINE PHOSPHATASE 99 U/L (38-126); ANION GAP 8 (5-19); ASPARTATE AMINO TRANSFERASE 35 U/L (17-59); BILIRUBIN,DIRECT 0.5 mg/dL (0.0-0.4); BILIRUBIN,TOTAL 0.7 mg/dL (0.2-1.3); BLOOD UREA NITROGEN 23 mg/dL (7-20); CARBON DIOXIDE 29 mmol/L (22-30); CHLORIDE 103 mmol/L (98-107); CHOLESTEROL 152.25 mg/dL (0-200); CREATINE KINASE 126 U/L (55-170); GLUCOSE 130 mg/dL (75-110); TOTAL PROTEIN 6.8 g/dL (6.3-8.2); TRIGLYCERIDES 264 mg/dL (<150)
[2018-08-22 06:08] LABS: DIRECT LDL 90 mg/dL (<100); VLDL CHOLESTEROL 52.8 mg/dL (10-31)
[2018-08-22 06:12] LABS: CREATINE KINASE MB 1.62 ng/mL (<4.55); TROPONIN I 0.021 ng/mL
[2018-08-22] MEDS: ENOXAPARIN SODIUM INJ 40 MG/0.4 ML DISP.SYRIN SUBCUT SCH (09:46)
[2018-08-22 11:53] LABS: CREATINE KINASE MB 1.27 ng/mL (<4.55); TROPONIN I 0.017 ng/mL
--- NOTE | 2018-08-22 17:58 | PDOC H&P ---
History of Present Illness Admission Date/PCP: 08/21/18 21:47 DHEERAJ DENSON MD History of Present Illness: DARLING NAVARRO is a 83 year old male.He has chronic systolic heart failure he came to the emergency room for evaluation of increased lower extremity swelling , back pain, he was evaluated in the emergency room, the ED physician felt that patient needed to be admitted for CHF management the emergency room physician was concerned the patient lives alone by himself and that he cannot take care of himself.When I saw him on the floor, he denies any orthopnea, PND, he has shortness of breath on exertion Past Medical History Cardiac Medical History: Reports: Atrial Fibrillation, Congestive Heart Failure , Coronary Artery Disease, Hyperlipidema, Hypertension Denies: Myocardial Infarction Pulmonary Medical History: Reports: Bronchitis GI Medical History: Musculoskeltal Medical History: Reports: Arthritis Psychiatric Medical History: Reports: Depression Hematology: Past Surgical History Past Surgical History: Reports: Orthopedic Surgery, Pacemaker Social History Lives with: Family Smoking Status: Never Smoker Frequency of Alcohol Use: None Hx Recreational Drug Use: No Hx Prescription Drug Abuse: No - Advance Directive Resuscitation Status: Do Not Resuscitate Family History Family History: Reviewed & Not Pertinent Parental Family History Reviewed: Yes Children Family History Reviewed: Yes Sibling(s) Family History Reviewed.: Yes Medication/Allergy Home Medications: Diltiazem HCl [Cardizem Cd 120 mg Capsule] 120 mg PO DAILY 01/20/12 Digoxin [Lanoxin 0.125 mg Tablet] 0.125 mg PO DAILY 01/21/12 Apixaban [Eliquis 5 mg Tablet] 5 mg PO Q12 #60 tablet 01/09/15 Aspirin [Adult Low Dose Aspirin EC] 81 mg PO DAILY 10/14/15 Allopurinol [Zyloprim] 300 mg PO DAILY 08/21/18 Furosemide [Lasix] 40 mg PO DAILY 08/21/18 Metoprolol Succinate 25 mg PO DAILY 08/21/18 Allergies/Adverse Reactions: No Known Allergies Allergy (Verified 08/21/18 16:51) Review of Systems Constitutional: ABSENT: chills, fever(s), headache(s), weight gain, weight loss Eyes: ABSENT: visual disturbances Ears: ABSENT: hearing changes Cardiovascular: PRESENT: dyspnea on exertion Respiratory: ABSENT: cough, hemoptysis Gastrointestinal: ABSENT: abdominal pain, constipation, diarrhea, hematemesis, hematochezia, nausea, vomiting Genitourinary: ABSENT: dysuria, hematuria Musculoskeletal: ABSENT: joint swelling Integumentary: ABSENT: rash, wounds Neurological: ABSENT: abnormal gait, abnormal speech, confusion, dizziness, focal weakness, syncope Psychiatric: ABSENT: anxiety, depression, homidical ideation, suicidal ideation Endocrine: ABSENT: cold intolerance, heat intolerance, menstrual abnormalities, polydipsia, polyuria Hematologic/Lymphatic: ABSENT: easy bleeding, easy bruising, lymphadenopathy Physical Exam Vital Signs: Temp Pulse Resp BP Pulse Ox 97.7 F 59 L 16 124/65 100 08/22/18 15:41 08/22/18 15:41 08/22/18 15:41 08/22/18 15:41 08/22/18 15:41 Intake & Output 08/21/18 08/22/18 08/23/18 06:59 06:59 06:59 Intake Total 621 Output Total 1125 950 Balance -1125 -329 Weight 94.3 kg General appearance: PRESENT: no acute distress Head exam: PRESENT: atraumatic, normocephalic Eye exam: PRESENT: PERRLA Mouth exam: PRESENT: moist, tongue midline Neck exam: PRESENT: full ROM Respiratory exam: PRESENT: clear to auscultation celso Cardiovascular exam: PRESENT: RRR, +S1, +S2, systolic murmur Vascular exam: PRESENT: normal capillary refill GI/Abdominal exam: PRESENT: normal bowel sounds, soft Rectal exam: PRESENT: deferred Extremities exam: PRESENT: pedal edema Neurological exam: PRESENT: alert, CN II-XII grossly intact. ABSENT: motor sensory deficit Psychiatric exam: PRESENT: appropriate affect, normal mood Skin exam: PRESENT: dry, intact, warm Results Laboratory Results: 08/22/18 04:33 08/22/18 04:33 08/21/18 08/21/18 08/22/18 22:35 22:35 00:19 WBC RBC Hgb Hct MCV MCH MCHC RDW Plt Count Seg Neutrophils % Lymphocytes % Monocytes % Eosinophils % Basophils % Absolute Neutrophils Absolute Lymphocytes Absolute Monocytes Absolute Eosinophils Absolute Basophils Carbonic Acid HCO3/H2CO3 Ratio ABG pH ABG pCO2 ABG pO2 ABG HCO3 ABG O2 Saturation ABG Base Excess FiO2 Sodium Potassium Chloride Carbon Dioxide Anion Gap BUN Creatinine Est GFR ( Amer) Est GFR (Non-Af Amer) Glucose Calcium Magnesium 2.0 Total Bilirubin AST ALT Alkaline Phosphatase Total Protein Albumin Triglycerides Cholesterol LDL Cholesterol Direct VLDL Cholesterol HDL Cholesterol TSH 3.24 Free T4 1.13 Urine Color COLORLESS Urine Appearance CLEAR Urine pH 7.0 Ur Specific [place] 1.006 Urine Protein NEGATIVE Urine Glucose (UA) NEGATIVE Urine Ketones NEGATIVE Urine Blood NEGATIVE Urine Nitrite NEGATIVE Ur Leukocyte Esterase NEGATIVE 08/22/18 08/22/18 08/22/18 00:35 04:33 04:33 WBC 4.9 RBC 5.02 Hgb 16.6 Hct 47.8 MCV 95 MCH 33.1 MCHC 34.7 RDW 16.3 H Plt Count 117 L Seg Neutrophils % 53.7 Lymphocytes % 33.2 Monocytes % 9.7 Eosinophils % 2.6 Basophils % 0.8 Absolute Neutrophils 2.6 Absolute Lymphocytes 1.6 Absolute Monocytes 0.5 Absolute Eosinophils 0.1 Absolute Basophils 0.0 Carbonic Acid 1.09 HCO3/H2CO3 Ratio 22:1 ABG pH 7.45 ABG pCO2 36.1 ABG pO2 79.7 L ABG HCO3 24.8 H ABG O2 Saturation 96.3 ABG Base Excess 1.2 FiO2 ROOM AIR Sodium 140.0 Potassium 4.0 Chloride 103 Carbon Dioxide 29 Anion Gap 8 BUN 23 H Creatinine 1.10 Est GFR ( Amer) > 60 Est GFR (Non-Af Amer) > 60 Glucose 130 H Calcium 9.0 Magnesium Total Bilirubin 0.7 AST 35 ALT 35 Alkaline Phosphatase 99 Total Protein 6.8 Albumin 3.6 Triglycerides 264 H Cholesterol 152.25 LDL Cholesterol Direct 90 VLDL Cholesterol 52.8 H HDL Cholesterol 22 L TSH Free T4 Urine Color Urine Appearance Urine pH Ur Specific [place] Urine Protein Urine Glucose (UA) Urine Ketones Urine Blood Urine Nitrite Ur Leukocyte Esterase 08/21/18 08/21/18 08/22/18 22:35 22:35 04:33 Creatine Kinase 112 126 CK-MB (CK-2) 1.65 Troponin I 0.016 NT-Pro-B Natriuret Pep 1320 H 08/22/18 08/22/18 08/22/18 04:33 10:13 10:13 Creatine Kinase 92 CK-MB (CK-2) 1.62 1.27 Troponin I 0.021 0.017 NT-Pro-B Natriuret Pep Impressions: Chest X-Ray 08/21/18 17:25 IMPRESSION: No acute findings. Stable cardiomegaly and unchanged left-sided single lead pacemaker Lumbar Spine CT 08/21/18 17:26 IMPRESSION: Mild diffuse degenerative changes. No acute fracture or malalignment. Thoracic Spine CT 08/21/18 17:26 IMPRESSION: Diffuse degenerative disc changes without significant thoracic spine central canal stenosis. No acute thoracic wedge compression deformity Assessment & Plan - Diagnosis (1) Acute systolic heart failure Is this a current diagnosis for this admission?: Yes Plan: Patient is admitted for management of acute systolic heart failure (2) Atrial fibrillation Qualifiers: Atrial fibrillation type: chronic Qualified Code(s): I48.2 - Chronic atrial fibrillation Is this a current diagnosis for this admission?: Yes
--- NOTE | 2018-08-22 19:27 | EKG REPORT ---
SEVERITY:- ABNORMAL ECG - VENTRICULAR-PACED COMPLEXES NONSPECIFIC IVCD WITH LAD : Confirmed by: Jocy Mims 22-Aug-2018 19:25:51
[2018-08-22] MEDS: APIXABAN 5 MG TABLET PO SCH (21:22)
[2018-08-22] MEDS: FUROSEMIDE 40 MG TABLET PO SCH (21:22)
[2018-08-23 05:35] LABS: ABSOLUTE BASOPHILS # (AUTO) 0.1 10^3/uL (0.0-0.2); ABSOLUTE EOSINOPHILS # (AUTO) 0.2 10^3/uL (0.0-0.6); ABSOLUTE LYMPHOCYTES (AUTO) 1.6 10^3/uL (0.5-4.7); ABSOLUTE MONOCYTES (AUTO) 0.6 10^3/uL (0.1-1.4); ABSOLUTE NEUT (AUTO) 3.1 10^3/uL (1.7-8.2); EOSINOPHILS % (AUTO) 3.1 % (0-6); HEMATOCRIT 47.1 % (37.9-51.0); HEMOGLOBIN 16.4 g/dL (13.5-17.0); LYMPHOCYTES % (AUTO) 29.4 % (13-45); MEAN CORPUSCULAR HEMOGLOBIN 33.1 pg (27.0-33.4); MEAN CORPUSCULAR HGB CONC 34.8 g/dL (32.0-36.0); MEAN CORPUSCULAR VOLUME 95 fl (80-97); MONOCYTES % (AUTO) 10.1 % (3-13); PLATELET COUNT 100 10^3/uL (150-450); RED BLOOD COUNT 4.95 10^6/uL (4.35-5.55); RED CELL DISTRIBUTION WIDTH 16.2 % (11.5-14.0); SEGMENTED NEUTROPHILS % (AUTO) 56.4 % (42-78); TOTAL CELLS COUNTED % (AUTO) 100 %; WHITE BLOOD COUNT 5.5 10^3/uL (4.0-10.5)
[2018-08-23] MEDS: DILTIAZEM HCL 120 MG CAP.SR.24H PO SCH (09:16)
[2018-08-23] MEDS: APIXABAN 5 MG TABLET PO SCH ×2 (09:17→21:58)
[2018-08-23] MEDS: ASPIRIN 81 MG TABLET, ENT COATED PO SCH (09:17)
[2018-08-23] MEDS: DIGOXIN 0.125 MG TABLET PO SCH (09:17)
[2018-08-23] MEDS: ENOXAPARIN SODIUM INJ 40 MG/0.4 ML DISP.SYRIN SUBCUT SCH (09:18)
[2018-08-23] MEDS: METOPROLOL SUCCINATE 25 MG TAB.SR.24H PO SCH (09:18)
[2018-08-23] MEDS: ALLOPURINOL 300 MG TABLET PO SCH (09:18)
[2018-08-23] MEDS: FUROSEMIDE 40 MG TABLET PO SCH ×2 (09:18→21:58)
--- NOTE | 2018-08-24 09:12 | PDOC PROGRESS REPORT ---
Subjective Progress Note for:: 08/24/18 Subjective:: Patient was admitting in the hospital for the congestive heart failure and weakness Patient is currently doing well Patient's denied any chest pain denied any shortness of the breath Patient's was complaining of back pain yesterday currently all stable Patients have ongoing weakness problem currently live at home and the patient's to have a significant history of the rhabdomyolysis in the past with ongoing muscular weakness seen by the neurologist and at this point patients probably get a benefit to go to the rehab's Reason For Visit: ACUTE SYSTOLIC HEART FAILURE,LYMPHEDEMA OF THE Physical Exam Vital Signs: Temp Pulse Resp BP Pulse Ox 98.0 F 60 14 128/94 H 96 08/24/18 07:42 08/24/18 07:42 08/24/18 07:42 08/24/18 07:42 08/24/18 07:42 Intake & Output 08/23/18 08/24/18 08/25/18 06:59 06:59 06:59 Intake Total 887 740 Output Total 2900 500 -2012 240 Weight 94.7 kg 91.6 kg General appearance: PRESENT: no acute distress, well-developed, well-nourished Head exam: PRESENT: atraumatic, normocephalic Eye exam: PRESENT: conjunctiva pink, EOMI, PERRLA. ABSENT: scleral icterus Ear exam: PRESENT: normal external ear exam Mouth exam: PRESENT: moist, tongue midline Neck exam: PRESENT: full ROM. ABSENT: carotid bruit, JVD, lymphadenopathy, thyromegaly Respiratory exam: PRESENT: clear to auscultation celso Cardiovascular exam: PRESENT: RRR. ABSENT: diastolic murmur, rubs, systolic murmur Pulses: PRESENT: normal dorsalis pedis pul, +2 pedal pulses bilateral Vascular exam: PRESENT: normal capillary refill GI/Abdominal exam: PRESENT: normal bowel sounds, soft. ABSENT: distended, guarding, mass, organolmegaly, rebound, tenderness Rectal exam: PRESENT: deferred Extremities exam: ABSENT: pedal edema Neurological exam: PRESENT: alert, awake, oriented to person, oriented to place , oriented to time, oriented to situation, CN II-XII grossly intact. ABSENT: motor sensory deficit Psychiatric exam: PRESENT: appropriate affect, normal mood. ABSENT: homicidal ideation, suicidal ideation Skin exam: PRESENT: dry, intact, warm. ABSENT: cyanosis, rash Results Laboratory Results: 08/23/18 04:48 08/22/18 04:33 08/21/18 08/21/18 08/22/18 22:35 22:35 04:33 Creatine Kinase 112 126 CK-MB (CK-2) 1.65 Troponin I 0.016 NT-Pro-B Natriuret Pep 1320 H 08/22/18 08/22/18 08/22/18 04:33 10:13 10:13 Creatine Kinase 92 CK-MB (CK-2) 1.62 1.27 Troponin I 0.021 0.017 NT-Pro-B Natriuret Pep Impressions: Chest X-Ray 08/21/18 17:25 IMPRESSION: No acute findings. Stable cardiomegaly and unchanged left-sided single lead pacemaker Lumbar Spine CT 08/21/18 17:26 IMPRESSION: Mild diffuse degenerative changes. No acute fracture or malalignment. Thoracic Spine CT 08/21/18 17:26 IMPRESSION: Diffuse degenerative disc changes without significant thoracic spine central canal stenosis. No acute thoracic wedge compression deformity Assessment & Plan - Diagnosis (1) Weakness Is this a current diagnosis for this admission?: Yes Plan: Continues to physical therapy patients probably get a benefit to the short-term rehab facilities (2) Hypertension Qualifiers: Hypertension type: essential hypertension Qualified Code(s): I10 - Essential (primary) hypertension Is this a current diagnosis for this admission?: Yes Plan: Currently all stable (3) Hyperlipidemia Qualifiers: Hyperlipidemia type: unspecified Qualified Code(s): E78.5 - Hyperlipidemia , unspecified Is this a current diagnosis for this admission?: Yes Plan: Patient unable to take any kind of a statin which makes the patient's severe rhabdomyolysis (4) Acute systolic heart failure Is this a current diagnosis for this admission?: Yes Plan: Continues to Lasix continues to current medications will consider Dr. larry the patient's cardiology (5) Atrial fibrillation Qualifiers: Atrial fibrillation type: chronic Qualified Code(s): I48.2 - Chronic atrial fibrillation Is this a current diagnosis for this admission?: Yes Plan: Continues to Eliquis (6) Cardiomyopathy Qualifiers: Cardiomyopathy type: unspecified Qualified Code(s): I42.9 - Cardiomyopathy , unspecified Is this a current diagnosis for this admission?: Yes Plan: Will follow with cardiology - Time Time Spent with patient: 15-24 minutes Medications reviewed and adjusted accordingly: Yes Anticipated discharge: SNF Within: within 24 hours - Inpatient Certification Medical Necessity: Need Close Monitoring Due to Risk of Patient Decompensation Post Hospital Care: D/C Community Dietitian Documentation - Plan Summary Plan Summary: Continues to current medications Patients expressed with full code as per nurses Consider discharge planning for the rehab facilities
[2018-08-24] MEDS: ENOXAPARIN SODIUM INJ 40 MG/0.4 ML DISP.SYRIN SUBCUT SCH (10:06)
[2018-08-24] MEDS: ALLOPURINOL 300 MG TABLET PO SCH (10:31)
[2018-08-24] MEDS: DIGOXIN 0.125 MG TABLET PO SCH (10:31)
[2018-08-24] MEDS: DILTIAZEM HCL 120 MG CAP.SR.24H PO SCH (10:31)
[2018-08-24] MEDS: ASPIRIN 81 MG TABLET, ENT COATED PO SCH (10:31)
[2018-08-24] MEDS: APIXABAN 5 MG TABLET PO SCH ×2 (10:31→21:47)
[2018-08-24] MEDS: FUROSEMIDE 40 MG TABLET PO SCH ×2 (10:31→21:47)
[2018-08-24] MEDS: METOPROLOL SUCCINATE 25 MG TAB.SR.24H PO SCH (10:32)
--- NOTE | 2018-08-24 12:17 | XCELERA REPORT ---
[address] [address] Transthoracic Echocardiogram Report Name: DARLING NAVARRO Age: 83 yrs Gender: Male : 1935 Patient Status: Inpatient Patient Location: [address] [place] [address] Study Date: 08/24/2018 09:08 AM Height: 67 in Weight: 212 lb BSA: 2.1 m2 Procedure: A two-dimensional transthoracic echocardiogram with color flow and Doppler was performed. The study was technically difficult with many images being suboptimal in quality. Reason For Study: chf History: CHF. Ordering Physician: SABRINA POLLOCK Performed By: Tray Asencio Interpretation Summary CHF The left ventricle is normal in size. There is mild concentric left ventricular hypertrophy. LV EF is 60% Left ventricular systolic function is normal. LV diastolic function not assessed. Suspect hypokinesis of LV apical segments. There is no thrombus. The right ventricle is mildly dilated. The right ventricular systolic function is borderline reduced. The left atrium is moderately dilated. A patent foramen ovale is present. ( With L to R shunt.) There is no evidence of mitral valve prolapse. There is no mitral valve stenosis. There is a mild amount of mitral regurgitation There is no aortic valve stenosis There is no LVOT obstruction. No aortic regurgitation is present. There is no tricuspid stenosis. There is a mild to moderate amount of tricuspid regurgitation There is moderate pulmonary hypertension by echo RVSP is 57 mm of Hg , with RA mean of 10. There is no pulmonic valvular stenosis. There is no pulmonic valvular regurgitation. There is no pericardial effusion. MMode/2D Measurements & Calculations RVDd: 4.4 cm LVIDd: 5.0 cm FS: 33.8 % Ao root diam: 3.2 cm IVSd: 1.3 cm LVIDs: 3.3 cm EDV(Teich): 120.6 ml Ao root area: 8.2 cm2 LVPWd: 1.2 cm ESV(Teich): 45.4 ml LA dimension: 5.0 cm EF(Teich): 62.4 % Doppler Measurements & Calculations MV E max manuela: MV P1/2t max manuela: Ao V2 max: LV V1 max P.9 cm/sec 100.4 cm/sec 125.7 cm/sec 5.1 mmHg MV P1/2t: 55.3 msec Ao max P.3 mmHgLV V1 max: MVA(P1/2t): 4.0 cm2 112.4 cm/sec MV dec slope: 532.4 cm/sec2 MV dec time: 0.17 sec PA V2 max: TR max manuela: MV P1/2t-pr_phl: 65.6 cm/sec 321.7 cm/sec 55.3 msec PA max PG: TR max P.4 mmHg 1.7 mmHg Left Ventricle The left ventricle is normal in size. There is mild concentric left ventricular hypertrophy. LV EF is 60%. Left ventricular systolic function is normal. LV diastolic function not assessed. Suspect hypokinesis of LV apical segments. There is no thrombus. There is no ventricular septal defect visualized. Right Ventricle The right ventricle is mildly dilated. The right ventricular systolic function is borderline reduced. Atria The right atrium is normal. The left atrium is moderately dilated. A patent foramen ovale is present. ( With L to R shunt.). Mitral Valve There is no evidence of mitral valve prolapse. There is no vegetation seen on the mitral valve. There is no mitral valve stenosis. There is a mild amount of mitral regurgitation. Aortic Valve There is no aortic valvular vegetation. There is no aortic valve stenosis. There is no LVOT obstruction. There is aortic sclerosis without aortic stenosis. No aortic regurgitation is present. Tricuspid Valve There is no tricuspid stenosis. There is a mild to moderate amount of tricuspid regurgitation. There is moderate pulmonary hypertension by echo. RVSP is 57 mm of Hg , with RA mean of 10. Pulmonic Valve There is no pulmonic valvular stenosis. There is no pulmonic valvular regurgitation. Great Vessels The aortic root is normal size. Effusions There is no pericardial effusion. : SABRINA POLLOCK > Adela Russell
[2018-08-25 05:57] LABS: ABSOLUTE BASOPHILS # (AUTO) 0.1 10^3/uL (0.0-0.2); ABSOLUTE EOSINOPHILS # (AUTO) 0.2 10^3/uL (0.0-0.6); ABSOLUTE LYMPHOCYTES (AUTO) 1.8 10^3/uL (0.5-4.7); ABSOLUTE MONOCYTES (AUTO) 0.6 10^3/uL (0.1-1.4); BASOPHILS % (AUTO) 1.2 % (0-2); HEMOGLOBIN 16.7 g/dL (13.5-17.0); LYMPHOCYTES % (AUTO) 26.8 % (13-45); MEAN CORPUSCULAR HGB CONC 34.8 g/dL (32.0-36.0); MEAN CORPUSCULAR VOLUME 95 fl (80-97); MONOCYTES % (AUTO) 9.2 % (3-13); PLATELET COUNT 140 10^3/uL (150-450); RED BLOOD COUNT 5.06 10^6/uL (4.35-5.55); RED CELL DISTRIBUTION WIDTH 16.3 % (11.5-14.0); SEGMENTED NEUTROPHILS % (AUTO) 59.8 % (42-78); TOTAL CELLS COUNTED % (AUTO) 100 %; WHITE BLOOD COUNT 6.7 10^3/uL (4.0-10.5)
[2018-08-25 06:15] LABS: ANION GAP 10 (5-19); BLOOD UREA NITROGEN 32 mg/dL (7-20); CALCIUM 9.3 mg/dL (8.4-10.2); CARBON DIOXIDE 28 mmol/L (22-30); CHLORIDE 100 mmol/L (98-107); GLUCOSE 141 mg/dL (75-110); POTASSIUM 4.5 mmol/L (3.6-5.0); SODIUM 137.6 mmol/L (137-145)
--- NOTE | 2018-08-25 08:15 | PDOC TRANSFER SUMMARY ---
General - Admit/Disc Date/PCP Admission Date/Primary Care Provider: 08/21/18 21:47 DHEERAJ DENSON MD Discharge Date: 08/25/18 - Discharge Diagnosis (1) Weakness Is this a current diagnosis for this admission?: Yes Summary: Patients require a rehab facility (2) Hypertension Is this a current diagnosis for this admission?: Yes Summary: Currently all stable (3) Hyperlipidemia Is this a current diagnosis for this admission?: Yes Summary: he is unable to take any statin making the severe rhabdomyolysis of pleased to not put any statin (4) Acute systolic heart failure Is this a current diagnosis for this admission?: Yes Summary: Currently all stable's as per discussed with the Dr. Sequeira and the patient's cardiology (5) Atrial fibrillation Is this a current diagnosis for this admission?: Yes Summary: on Eliquis (6) Cardiomyopathy Is this a current diagnosis for this admission?: Yes Summary: Clear all stable (7) Lymphedema Is this a current diagnosis for this admission?: Yes Summary: Patient seen by vascular surgery in the past suggested elastic stocking - Additional Information Resuscitation Status: Do Not Resuscitate Discharge Diet: Cardiac Discharge Activity: Activity As Tolerated, Balance Activity w/Rest, Weigh Daily Home Medications: Diltiazem HCl [Cardizem Cd 120 mg Capsule] 120 mg PO DAILY 01/20/12 Digoxin [Lanoxin 0.125 mg Tablet] 0.125 mg PO DAILY 01/21/12 Apixaban [Eliquis 5 mg Tablet] 5 mg PO Q12 #60 tablet 01/09/15 Aspirin [Adult Low Dose Aspirin EC] 81 mg PO DAILY 10/14/15 Allopurinol [Zyloprim] 300 mg PO DAILY 08/21/18 Furosemide [Lasix] 40 mg PO DAILY 08/21/18 Metoprolol Succinate 25 mg PO DAILY 08/21/18 History of Present Illness Admission Date/PCP: 08/21/18 21:47 DHEERAJ DENSON MD Patient complains of: Weakness and short of breath History of Present Illness: DARLING NAVARRO is a 83 year old male Admitting in the hospital because of the acute systolic heart failure and generalized weakness unable to walk Hospital Course Hospital Course: Is a 83-year-old male's with a significant history of the congestive heart failure cardiomyopathy chronic A. fib chronic lymphedema history of the severe rhabdomyolysis due to the statin therapy and multiple other medical issues currently live by himself came to the emergency department with a complaint of generalized weakness and shortness of the breath and patient was diagnosed with acute congestive heart failure Patient was put on IV Lasix and switch to p.o. Lasix Patient's echocardiogram was all stable Patient's currently denied any chest pain denied any shortness of the breath Patient's have ongoing chronic lymphedema in the leg she is on stable Patient's otherwise have a generalized weakness very limited activity before the hospital admissions anyway Patients probably get a benefit to the rehab facilities Discussed the case with the patient's cardiology Dr. Sequeira and he reviewed the chart and suggest that no need for any further interventions Follow outpatient Discussed with the patient's family and patient discharged to the rehab facilities Fall precautions Physical Exam Vital Signs: Temp Pulse Resp BP Pulse Ox 97.7 F 60 16 122/72 99 08/25/18 07:27 08/25/18 07:27 08/25/18 07:27 08/25/18 07:27 08/25/18 07:27 Intake & Output 08/24/18 08/25/18 08/26/18 06:59 06:59 06:59 Intake Total 740 320 Output Total 500 300 Balance 240 20 Weight 91.6 kg 92.8 kg General appearance: PRESENT: no acute distress, well-developed, well-nourished Head exam: PRESENT: atraumatic, normocephalic Eye exam: PRESENT: conjunctiva pink, EOMI, PERRLA. ABSENT: scleral icterus Ear exam: PRESENT: normal external ear exam Mouth exam: PRESENT: moist, tongue midline Neck exam: ABSENT: carotid bruit, JVD, lymphadenopathy, thyromegaly Respiratory exam: PRESENT: clear to auscultation celso. ABSENT: rales, rhonchi, wheezes Cardiovascular exam: PRESENT: RRR. ABSENT: diastolic murmur, rubs, systolic murmur Pulses: PRESENT: normal dorsalis pedis pul Vascular exam: PRESENT: normal capillary refill GI/Abdominal exam: PRESENT: normal bowel sounds, soft. ABSENT: distended, guarding, mass, organolmegaly, rebound, tenderness Rectal exam: PRESENT: deferred Extremities exam: PRESENT: full ROM. ABSENT: calf tenderness, clubbing, pedal edema Neurological exam: PRESENT: alert, awake, oriented to person, oriented to place , oriented to time, oriented to situation, CN II-XII grossly intact. ABSENT: motor sensory deficit Psychiatric exam: PRESENT: appropriate affect, normal mood. ABSENT: homicidal ideation, suicidal ideation Skin exam: PRESENT: dry, intact, warm. ABSENT: cyanosis, rash Results Laboratory Results: 08/25/18 05:12 08/25/18 05:12 08/25/18 08/25/18 05:12 05:12 WBC 6.7 RBC 5.06 Hgb 16.7 Hct 48.0 MCV 95 MCH 33.0 MCHC 34.8 RDW 16.3 H Plt Count 140 L Seg Neutrophils % 59.8 Lymphocytes % 26.8 Monocytes % 9.2 Eosinophils % 3.0 Basophils % 1.2 Absolute Neutrophils 4.0 Absolute Lymphocytes 1.8 Absolute Monocytes 0.6 Absolute Eosinophils 0.2 Absolute Basophils 0.1 Sodium 137.6 Potassium 4.5 Chloride 100 Carbon Dioxide 28 Anion Gap 10 BUN 32 H Creatinine 1.19 Est GFR ( Amer) > 60 Est GFR (Non-Af Amer) 58 L Glucose 141 H Calcium 9.3 08/22/18 00:19 Clean Catch Midstream Urine Culture - Final Mixed Urogenital Ally 08/21/18 08/21/18 08/22/18 22:35 22:35 04:33 Creatine Kinase 112 126 CK-MB (CK-2) 1.65 Troponin I 0.016 NT-Pro-B Natriuret Pep 1320 H 08/22/18 08/22/18 08/22/18 04:33 10:13 10:13 Creatine Kinase 92 CK-MB (CK-2) 1.62 1.27 Troponin I 0.021 0.017 NT-Pro-B Natriuret Pep 08/25/18 05:12 Creatine Kinase CK-MB (CK-2) Troponin I NT-Pro-B Natriuret Pep 584 H Impressions: Chest X-Ray 08/21/18 17:25 IMPRESSION: No acute findings. Stable cardiomegaly and unchanged left-sided single lead pacemaker Lumbar Spine CT 08/21/18 17:26 IMPRESSION: Mild diffuse degenerative changes. No acute fracture or malalignment. Thoracic Spine CT 08/21/18 17:26 IMPRESSION: Diffuse degenerative disc changes without significant thoracic spine central canal stenosis. No acute thoracic wedge compression deformity Transfer Plan - Time Spent with Patient Time spent with patient: Greater than 30 Minutes Qualifiers - * PATIENT BEING DISCHARGED WITH ANY OF THE FOLLOWING DIAGNOSIS: No, Heart Failure VTE patient discharged on overlapping Therapy?: Yes OR Pt discharged ACEI/ARBS?: Yes HF Pt being discharged on ACEI for LVEF less than 40%?: Yes Reason(s) for not prescribing ACEI:: Drug declined by patient HF Pt being discharged on ARBS for LVEF less than 40%?: Yes HF Pt with Afib discharged with Warfarin?: Yes HF Pt discharged on evidence-based Beta Yumiko:: Yes Plan Time Spent: Greater than 30 Minutes - Discharge to the rehab facilities
[2018-08-25] MEDS: ASPIRIN 81 MG TABLET, ENT COATED PO SCH (09:40)
[2018-08-25] MEDS: METOPROLOL SUCCINATE 25 MG TAB.SR.24H PO SCH (09:40)
[2018-08-25] MEDS: FUROSEMIDE 40 MG TABLET PO SCH ×2 (09:41→22:10)
[2018-08-25] MEDS: DILTIAZEM HCL 120 MG CAP.SR.24H PO SCH (09:41)
[2018-08-25] MEDS: APIXABAN 5 MG TABLET PO SCH ×2 (09:42→22:09)
[2018-08-25] MEDS: ALLOPURINOL 300 MG TABLET PO SCH (09:42)
[2018-08-25] MEDS: DIGOXIN 0.125 MG TABLET PO SCH (09:43)
[2018-08-26 07:03] LABS: ANION GAP 12 (5-19); BLOOD UREA NITROGEN 34 mg/dL (7-20); CALCIUM 9.3 mg/dL (8.4-10.2); CARBON DIOXIDE 27 mmol/L (22-30); CHLORIDE 101 mmol/L (98-107); GLUCOSE 142 mg/dL (75-110)
--- NOTE | 2018-08-26 09:18 | PDOC PROGRESS REPORT ---
Subjective Progress Note for:: 08/26/18 Subjective:: Patient is currently doing well denied any chest pain denied any shortness of the breath patients waiting to the transfer to the nursing facilities Reason For Visit: ACUTE SYSTOLIC HEART FAILURE,LYMPHEDEMA OF THE Physical Exam Vital Signs: Temp Pulse Resp BP Pulse Ox 97.7 F 61 16 117/78 98 08/26/18 07:40 08/26/18 07:40 08/26/18 07:40 08/26/18 07:40 08/26/18 07:40 Intake & Output 08/25/18 08/26/18 08/27/18 06:59 06:59 06:59 Intake Total 320 1399 Output Total 300 1000 Balance 20 399 Weight 92.8 kg 82.7 kg General appearance: PRESENT: no acute distress, well-developed, well-nourished Head exam: PRESENT: atraumatic, normocephalic Eye exam: PRESENT: conjunctiva pink, EOMI, PERRLA. ABSENT: scleral icterus Ear exam: PRESENT: normal external ear exam Mouth exam: PRESENT: moist, tongue midline Neck exam: PRESENT: full ROM. ABSENT: carotid bruit, JVD, lymphadenopathy, thyromegaly Respiratory exam: PRESENT: clear to auscultation celso Cardiovascular exam: PRESENT: RRR. ABSENT: diastolic murmur, rubs, systolic murmur Pulses: PRESENT: normal dorsalis pedis pul, +2 pedal pulses bilateral Vascular exam: PRESENT: normal capillary refill GI/Abdominal exam: PRESENT: normal bowel sounds, soft. ABSENT: distended, guarding, mass, organolmegaly, rebound, tenderness Rectal exam: PRESENT: deferred Neurological exam: PRESENT: alert, awake, oriented to person, oriented to place , oriented to time, oriented to situation, CN II-XII grossly intact. ABSENT: motor sensory deficit Psychiatric exam: PRESENT: appropriate affect, normal mood. ABSENT: homicidal ideation, suicidal ideation Skin exam: PRESENT: dry, intact, warm. ABSENT: cyanosis, rash Results Laboratory Results: 08/25/18 05:12 08/26/18 06:25 08/26/18 06:25 Sodium 140.0 Potassium 4.0 Chloride 101 Carbon Dioxide 27 Anion Gap 12 BUN 34 H Creatinine 1.13 Est GFR ( Amer) > 60 Est GFR (Non-Af Amer) > 60 Glucose 142 H Calcium 9.3 08/21/18 08/21/18 08/22/18 22:35 22:35 04:33 Creatine Kinase 112 126 CK-MB (CK-2) 1.65 Troponin I 0.016 NT-Pro-B Natriuret Pep 1320 H 08/22/18 08/22/18 08/22/18 04:33 10:13 10:13 Creatine Kinase 92 CK-MB (CK-2) 1.62 1.27 Troponin I 0.021 0.017 NT-Pro-B Natriuret Pep 08/25/18 05:12 Creatine Kinase CK-MB (CK-2) Troponin I NT-Pro-B Natriuret Pep 584 H Impressions: Chest X-Ray 08/21/18 17:25 IMPRESSION: No acute findings. Stable cardiomegaly and unchanged left-sided single lead pacemaker Lumbar Spine CT 08/21/18 17:26 IMPRESSION: Mild diffuse degenerative changes. No acute fracture or malalignment. Thoracic Spine CT 08/21/18 17:26 IMPRESSION: Diffuse degenerative disc changes without significant thoracic spine central canal stenosis. No acute thoracic wedge compression deformity Assessment & Plan - Diagnosis (1) Weakness Is this a current diagnosis for this admission?: Yes Plan: Continues to physical therapy patients probably get a benefit to the short-term rehab facilities (2) Hypertension Qualifiers: Hypertension type: essential hypertension Qualified Code(s): I10 - Essential (primary) hypertension Is this a current diagnosis for this admission?: Yes Plan: Currently all stable (3) Hyperlipidemia Qualifiers: Hyperlipidemia type: unspecified Qualified Code(s): E78.5 - Hyperlipidemia , unspecified Is this a current diagnosis for this admission?: Yes Plan: Patient unable to take any kind of a statin which makes the patient's severe rhabdomyolysis (4) Acute systolic heart failure Is this a current diagnosis for this admission?: Yes Plan: Continues to Lasix continues to current medications will consider Dr. larry the patient's cardiology (5) Atrial fibrillation Qualifiers: Atrial fibrillation type: chronic Qualified Code(s): I48.2 - Chronic atrial fibrillation Is this a current diagnosis for this admission?: Yes Plan: Continues to Eliquis (6) Cardiomyopathy Qualifiers: Cardiomyopathy type: unspecified Qualified Code(s): I42.9 - Cardiomyopathy , unspecified Is this a current diagnosis for this admission?: Yes Plan: Will follow with cardiology (7) Lymphedema Is this a current diagnosis for this admission?: Yes - Time Time Spent with patient: 15-24 minutes Medications reviewed and adjusted accordingly: Yes Anticipated discharge: SNF Within: when bed available - Inpatient Certification Medical Necessity: Need Close Monitoring Due to Risk of Patient Decompensation 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
[2018-08-26] MEDS: APIXABAN 5 MG TABLET PO SCH (10:45)
[2018-08-26] MEDS: ALLOPURINOL 300 MG TABLET PO SCH (10:45)
[2018-08-26] MEDS: DIGOXIN 0.125 MG TABLET PO SCH (10:46)
[2018-08-26] MEDS: FUROSEMIDE 40 MG TABLET PO SCH (10:47)
[2018-08-26] MEDS: ASPIRIN 81 MG TABLET, ENT COATED PO SCH (10:47)
[2018-08-26] MEDS: METOPROLOL SUCCINATE 25 MG TAB.SR.24H PO SCH (10:47)
[2018-08-26] MEDS: DILTIAZEM HCL 120 MG CAP.SR.24H PO SCH (10:47)
[2018-08-26 15:14] VITALS: BP 119/70
== END 2018-08-26 18:15 ==
LOC: ER 16:36 → EH 21:47 → INTOOBSV 21:47 → 4S 22:30
PROVIDERS: ADMIT Family Medicine; ATTEND Family Medicine
DX: R53.1 Weakness (principal); E78.5 Hyperlipidemia, unspecified; I11.0 Hypertensive heart disease with heart failure; I50.21 Acute systolic (congestive) heart failure; I48.2 Chronic atrial fibrillation; I42.9 Cardiomyopathy, unspecified; I89.0 Lymphedema, not elsewhere classified; I25.10 Atherosclerotic heart disease of native coronary artery without angina pectoris; R26.9 Unspecified abnormalities of gait and mobility; M51.34 Other intervertebral disc degeneration, thoracic region; M51.36 Other intervertebral disc degeneration, lumbar region; Z66 Do not resuscitate; Z79.02 Long term (current) use of antithrombotics/antiplatelets; Z79.899 Other long term (current) drug therapy; Z79.82 Long term (current) use of aspirin; Z60.2 Problems related to living alone; Z95.0 Presence of cardiac pacemaker; Z98.890 Other specified postprocedural states
CPT/HCPCS: 36415; 71045; 72128; 72131; 80048; 80053; 80061; 80076; 80162; 81001; 82550; 82553; 82803; 83036; 83735; 83880; 84439; 84443; 84484; 85025; 85610; 85730; 87086; 90471; 90686; 93005; 93010; 93306; 96374; 99285; G0008; G0378; G8978-GP; G8979-GP; G8987-GO; G8988-GO; J1940; J3490

== ENCOUNTER 2018-10-15 11:39 | Inpatient (IN) | payer MEDICARE ==
[2018-10-15] MEDS ORDERED: FUROSEMIDE INJ/PF 40 MG/4 ML SDV IV ONE (12:52)
[2018-10-15 12:54] LABS: ABSOLUTE EOSINOPHILS # (AUTO) 0.2 10^3/uL (0.0-0.6); ABSOLUTE LYMPHOCYTES (AUTO) 1.3 10^3/uL (0.5-4.7); ABSOLUTE MONOCYTES (AUTO) 0.6 10^3/uL (0.1-1.4); ABSOLUTE NEUT (AUTO) 5.7 10^3/uL (1.7-8.2); BASOPHILS % (AUTO) 0.4 % (0-2); EOSINOPHILS % (AUTO) 2.3 % (0-6); HEMATOCRIT 45.6 % (37.9-51.0); HEMOGLOBIN 15.8 g/dL (13.5-17.0); LYMPHOCYTES % (AUTO) 16.8 % (13-45); MEAN CORPUSCULAR HEMOGLOBIN 32.7 pg (27.0-33.4); MEAN CORPUSCULAR HGB CONC 34.6 g/dL (32.0-36.0); MEAN CORPUSCULAR VOLUME 95 fl (80-97); PLATELET COUNT 163 10^3/uL (150-450); RED BLOOD COUNT 4.82 10^6/uL (4.35-5.55); RED CELL DISTRIBUTION WIDTH 15.9 % (11.5-14.0); SEGMENTED NEUTROPHILS % (AUTO) 72.5 % (42-78); TOTAL CELLS COUNTED % (AUTO) 100 %; WHITE BLOOD COUNT 7.9 10^3/uL (4.0-10.5)
--- NOTE | 2018-10-15 12:56 | ER Document Report ---
ED General - General Chief Complaint: Other Stated Complaint: UNABLE TO STAND Time Seen by Provider: 10/15/18 12:38 TRAVEL OUTSIDE OF THE [place] IN LAST 30 DAYS: No - HPI Notes: Patient is a 83-year-old male that presents to the emergency department for chief complaint of lower extremity edema and difficulty walking. States he has had edema in his legs for years. He is told he had venous insufficiency. Patient is not sure if he takes any water pills daily. He denies any history of congestive heart failure. He states today he noticed the swelling has been getting worse. He is having a difficult time ambulating because of the edema. He denies any pain in his legs. He denies any shortness of breath, chest pain, and palpitations. Patient denies history of blood clots. He is currently taking Eliquis for A. fib Past Medical History: Hypertension, A. fib, gout Past Surgical History: Right hip replacement Social History: Denies drugs alcohol and tobacco Family History: Reviewed and noncontributory for presenting illness Allergies: Reviewed, see documented allergy list. REVIEW OF SYSTEMS: CONSTITUTIONAL : No fever No chills No diaphoresis No recent illness EENT: No vision changes No congestion No sore throat CARDIOVASCULAR: No chest pain No palpitations Peripheral edema RESPIRATORY: No shortness of breath No cough No difficulty breathing GASTROINTESTINAL: No abdominal pain No nausea No vomiting No diarrhea GENITOURINARY: No dysuria No hematuria No difficulty urinating MUSCULOSKELETAL: No back pain No leg pain No arm pain SKIN: No rashes No lesions LYMPHATIC: No swollen, enlarged glands. NEUROLOGICAL: No lightheadedness No headache No weakness No paresthesias PSYCHIATRIC: No anxiety No depression PHYSICAL EXAMINATION: Vital signs reviewed, nursing noted reviewed. GENERAL: Well-appearing, well-nourished and in no acute distress. HEAD: Atraumatic, normocephalic. EYES: Eyes appear normal, extraocular movements intact, sclera anicteric, conjunctiva are normal. ENT: nares patent, oropharynx clear without exudates. Moist mucous membranes. NECK: Normal range of motion, supple without lymphadenopathy LUNGS: Breath sounds clear to auscultation bilaterally and equal. No wheezes rales or rhonchi. HEART: Regular rate and irregularly irregular rhythm without murmurs ABDOMEN: Soft, nontender, normoactive bowel sounds. No rebound, guarding, or rigidity. No masses appreciated. EXTREMITIES: Nontender, good range of motion, +2 pitting edema bilateral lower extremities extending from feet through lower thigh. NEUROLOGICAL: No focal neurological deficits. Moves all extremities spontaneously Motor and sensory grossly intact on exam. PSYCH: Normal mood, normal affect. SKIN: Warm, Dry, normal turgor, no rashes or lesions noted on exposed skin - Related Data Allergies/Adverse Reactions: No Known Allergies Allergy (Verified 10/15/18 11:45) Past Medical History - Social History Smoking Status: Never Smoker Chew tobacco use (# tins/day): No Frequency of alcohol use: None Drug Abuse: None Family History: Reviewed & Not Pertinent Patient has suicidal ideation: No Patient has homicidal ideation: No - Past Medical History Cardiac Medical History: Reports: Hx Atrial Fibrillation, Hx Congestive Heart Failure, Hx Coronary Artery Disease, Hx Hypercholesterolemia, Hx Hypertension Denies: Hx Heart Attack Pulmonary Medical History: Reports: Hx Bronchitis Denies: Hx Asthma, Hx COPD, Hx Pneumonia Neurological Medical History: Denies: Hx Cerebrovascular Accident, Hx Seizures Renal/ Medical History: Denies: Hx Peritoneal Dialysis GI Medical History: Musculoskeletal Medical History: Reports Hx Arthritis Skin Medical History: Denies Hx MRSA Psychiatric Medical History: Reports: Hx Depression Infectious Medical History: Past Surgical History: Reports: Hx Orthopedic Surgery, Hx Pacemaker - Immunizations Immunizations up to date: Yes Hx Diphtheria, Pertussis, Tetanus Vaccination: Yes - pt thinks last tetanus was less than 5 years ago Hx Pneumococcal Vaccination: 08/17/09 Physical Exam - Vital signs Vitals: Temp 98.2 F 10/15/18 11:54 Course - Re-evaluation Re-evalutation: 10/15/18 12:55 Vitals reviewed. Nursing notes reviewed. Patient in no acute respiratory distress. EKG shows a paced rhythm with no ischemic changes. Ultrasound will be obtained to evaluate for lower extremity DVT. 10/15/18 15:05 Patient's venous duplex was negative for acute DVT. Chest x-ray shows no pulmonary vascular congestion. His troponin is negative. The remainder of his workup is unremarkable. Patient was attempted to ambulate and is having a very difficult time moving his left leg against gravity. He was unable to stand and bear weight on his left leg. I suspect the significant amount of edema is what is restricting his mobility. Patient did receive IV Lasix in the ED and has had some urinary output. With his inability to ambulate he is requiring further IV diuresis and physical therapy to improve strength. Patient will be admitted to the hospital for diuresis and PT OT evaluation. Patient is in agreement with this plan. Laboratory 10/15/18 10/15/18 10/15/18 11:55 11:55 11:55 WBC 7.9 RBC 4.82 Hgb 15.8 Hct 45.6 MCV 95 MCH 32.7 MCHC 34.6 RDW 15.9 H Plt Count 163 Seg Neutrophils % 72.5 Lymphocytes % 16.8 Monocytes % 8.0 Eosinophils % 2.3 Basophils % 0.4 Absolute Neutrophils 5.7 Absolute Lymphocytes 1.3 Absolute Monocytes 0.6 Absolute Eosinophils 0.2 Absolute Basophils 0.0 Sodium 139.3 Potassium 4.7 Chloride 100 Carbon Dioxide 29 Anion Gap 10 BUN 21 H Creatinine 1.10 Est GFR ( Amer) > 60 Est GFR (Non-Af Amer) > 60 Glucose 128 H Calcium 9.1 Total Bilirubin 1.2 Direct Bilirubin 0.4 Neonat Total Bilirubin Not Reportable Neonat Direct Bilirubin Not Reportable Neonat Indirect Bili Not Reportable AST 29 ALT 33 Alkaline Phosphatase 101 Troponin I 0.012 NT-Pro-B Natriuret Pep 1670 H Total Protein 7.2 Albumin 3.9 Digoxin 10/15/18 11:55 WBC RBC Hgb Hct MCV MCH MCHC RDW Plt Count Seg Neutrophils % Lymphocytes % Monocytes % Eosinophils % Basophils % Absolute Neutrophils Absolute Lymphocytes Absolute Monocytes Absolute Eosinophils Absolute Basophils Sodium Potassium Chloride Carbon Dioxide Anion Gap BUN Creatinine Est GFR ( Amer) Est GFR (Non-Af Amer) Glucose Calcium Total Bilirubin Direct Bilirubin Neonat Total Bilirubin Neonat Direct Bilirubin Neonat Indirect Bili AST ALT Alkaline Phosphatase Troponin I NT-Pro-B Natriuret Pep Total Protein Albumin Digoxin 0.80 Chest X-Ray 10/15/18 12:40 IMPRESSION: NO ACUTE RADIOGRAPHIC FINDING IN THE CHEST. 10/15/18 15:12 Case was discussed with Dr. Caraballo who accepted patient for admission - Vital Signs Vital signs: Temp Pulse Resp BP Pulse Ox 98.2 F 10/15/18 11:54 - Laboratory Result Diagrams: 10/15/18 11:55 10/15/18 11:55 Laboratory results interpreted by me: 10/15/18 10/15/18 10/15/18 11:55 11:55 11:55 RDW 15.9 H BUN 21 H Glucose 128 H NT-Pro-B Natriuret Pep 1670 H - EKG Interpretation by Me Additional EKG results interpreted by me: 10/15/18 12:55 Interpreted by myself [id number]: Ventricularly paced rhythm, rate 62, nonspecific IVCD, left axis, no ST elevation Discharge - Discharge Clinical Impression: Peripheral edema, Impaired ambulation Condition: Stable Disposition: ADMITTED OBSERVATION Admitting Provider: Caraballo Unit Admitted: Medical Floor
[2018-10-15 12:57] LABS: ALANINE AMINOTRANSFERASE 33 U/L (21-72); ALBUMIN 3.9 g/dL (3.5-5.0); ALKALINE PHOSPHATASE 101 U/L (38-126); ANION GAP 10 (5-19); ASPARTATE AMINO TRANSFERASE 29 U/L (17-59); BILIRUBIN,DIRECT 0.4 mg/dL (0.0-0.4); BILIRUBIN,TOTAL 1.2 mg/dL (0.2-1.3); BLOOD UREA NITROGEN 21 mg/dL (7-20); CALCIUM 9.1 mg/dL (8.4-10.2); CARBON DIOXIDE 29 mmol/L (22-30); CHLORIDE 100 mmol/L (98-107); GLUCOSE 128 mg/dL (75-110); POTASSIUM 4.7 mmol/L (3.6-5.0); SODIUM 139.3 mmol/L (137-145); TOTAL PROTEIN 7.2 g/dL (6.3-8.2)
[2018-10-15 13:09] LABS: TROPONIN I 0.012 ng/mL
--- NOTE | 2018-10-15 13:22 | RADIOLOGY REPORT (SQ) ---
EXAM DESCRIPTION: CHEST SINGLE VIEW COMPLETED DATE/TIME: 10/15/2018 1:11 pm REASON FOR STUDY: cough COMPARISON: 10/17/2015. EXAM PARAMETERS: NUMBER OF VIEWS: One view. TECHNIQUE: Single frontal radiographic view of the chest acquired. RADIATION DOSE: NA LIMITATIONS: None. FINDINGS: LUNGS AND PLEURA: No opacities, masses or pneumothorax. No pleural effusion. MEDIASTINUM AND HILAR STRUCTURES: No masses. Contour normal. HEART AND VASCULAR STRUCTURES: Mild cardiomegaly. Normal vasculature. BONES: No acute findings. HARDWARE: Pacemaker. OTHER: No other significant finding. IMPRESSION: NO ACUTE RADIOGRAPHIC FINDING IN THE CHEST. TECHNICAL DOCUMENTATION: JOB ID: [id number] [employer]- All Rights Reserved Reading location - IP/workstation name: [facility]-[email or web address]
--- NOTE | 2018-10-15 13:36 | EKG REPORT ---
SEVERITY:- ABNORMAL ECG - VENTRICULAR-PACED COMPLEXES : Confirmed by: Kimani Sequeira MD 15-Oct-2018 13:35:51
--- NOTE | 2018-10-15 15:40 | RADIOLOGY REPORT (SQ) ---
EXAM DESCRIPTION: VENOUS BILATERAL LOWER COMPLETED DATE/TIME: 10/15/2018 2:14 pm REASON FOR STUDY: edema COMPARISON: None. TECHNIQUE: Dynamic and static rodriguez scale and color images acquired of both lower extremity venous sy stems. Selected spectral images acquired with additional compression and augmentation maneuvers. Imag es stored on PACS. LIMITATIONS: None. FINDINGS: RIGHT LEG COMMON FEMORAL AND FEMORAL: Normal phasicity, compression and augmentation. No visualized echogenic m aterial on rodriguez scale. No defects on color images. POPLITEAL: Normal compression and augmentation. No visualized echogenic material on rodriguez scale. No de fects on color images. CALF VESSELS: Normal compression and augmentation. No visualized echogenic material on rodriguez scale. No defects on color image. GSV AND SSV: Normal compression. No visualized echogenic material on rodriguez scale. No defects on color images. ANY DEEP VENOUS INSUFFICIENCY: No. ANY EVIDENCE OF POPLITEAL CYST: No. OTHER: No other significant finding. LEFT LEG COMMON FEMORAL AND FEMORAL: Normal phasicity, compression and augmentation. No visualized echogenic m aterial on rodriguez scale. No defects on color images. POPLITEAL: Normal compression and augmentation. No visualized echogenic material on rodriguez scale. No de fects on color images. CALF VESSELS: Normal compression and augmentation. No visualized echogenic material on rodriguez scale. No defects on color images. GSV AND SSV: Normal compression. No visualized echogenic material on rodriguez scale. No defects on color images. ANY DEEP VENOUS INSUFFICIENCY: No. ANY EVIDENCE POPLITEAL CYST: No. OTHER: No other significant finding. IMPRESSION: NO EVIDENCE DVT OR SVT IN EITHER LEG. TECHNICAL DOCUMENTATION: JOB ID: [id number] [employer]- All Rights Reserved Reading location - IP/workstation name: [email or web address]
[2018-10-15] MEDS ORDERED: IPRATROPIUM/ALBUTEROL 0.5-2.5 MG/3 ML AMPUL NEB PRN (15:51)
[2018-10-15] MEDS ORDERED: ACETAMINOPHEN 325 MG TABLET PO PRN (15:51)
[2018-10-15] MEDS ORDERED: GLUCAGON,HUMAN RECOMB 1 MG INJ IM PRN (15:54)
[2018-10-15] MEDS ORDERED: DEXTROSE 40% GEL 15 GM TUBE PO PRN ×2 (15:54)
[2018-10-15] MEDS ORDERED: DEXTROSE 50%-WATER 25 GM/50 ML DISP.SYRIN IV PRN ×2 (15:54)
[2018-10-15 17:11] LABS: CREATINE KINASE MB 0.45 ng/mL (<4.55); TROPONIN I 0.014 ng/mL
[2018-10-15] MEDS: DOCUSATE SODIUM 100 MG CAPSULE PO SCH (18:54)
[2018-10-15] MEDS ORDERED: APIXABAN 5 MG TABLET PO SCH (22:00)
[2018-10-15 22:37] LABS: CREATINE KINASE MB 0.49 ng/mL (<4.55); TROPONIN I 0.026 ng/mL
[2018-10-15] MEDS: APIXABAN 2.5 MG TABLET PO SCH (22:47)
[2018-10-15] MEDS: FUROSEMIDE INJ/PF 40 MG/4 ML SDV IV SCH (22:47)
[2018-10-16 04:56] LABS: ABSOLUTE BASOPHILS # (AUTO) 0.1 10^3/uL (0.0-0.2); ABSOLUTE EOSINOPHILS # (AUTO) 0.2 10^3/uL (0.0-0.6); ABSOLUTE LYMPHOCYTES (AUTO) 1.6 10^3/uL (0.5-4.7); ABSOLUTE MONOCYTES (AUTO) 0.6 10^3/uL (0.1-1.4); ABSOLUTE NEUT (AUTO) 3.9 10^3/uL (1.7-8.2); BASOPHILS % (AUTO) 0.9 % (0-2); HEMOGLOBIN 15.8 g/dL (13.5-17.0); LYMPHOCYTES % (AUTO) 25.6 % (13-45); MEAN CORPUSCULAR HEMOGLOBIN 32.7 pg (27.0-33.4); MEAN CORPUSCULAR HGB CONC 34.4 g/dL (32.0-36.0); MEAN CORPUSCULAR VOLUME 95 fl (80-97); MONOCYTES % (AUTO) 9.1 % (3-13); PLATELET COUNT 133 10^3/uL (150-450); RED BLOOD COUNT 4.83 10^6/uL (4.35-5.55); RED CELL DISTRIBUTION WIDTH 15.8 % (11.5-14.0); SEGMENTED NEUTROPHILS % (AUTO) 61.4 % (42-78); TOTAL CELLS COUNTED % (AUTO) 100 %; WHITE BLOOD COUNT 6.3 10^3/uL (4.0-10.5)
[2018-10-16 05:15] LABS: ALANINE AMINOTRANSFERASE 29 U/L (21-72); ALBUMIN 3.9 g/dL (3.5-5.0); ALKALINE PHOSPHATASE 102 U/L (38-126); ANION GAP 13 (5-19); ASPARTATE AMINO TRANSFERASE 28 U/L (17-59); BILIRUBIN,DIRECT 0.4 mg/dL (0.0-0.4); BILIRUBIN,TOTAL 1.1 mg/dL (0.2-1.3); BLOOD UREA NITROGEN 22 mg/dL (7-20); CALCIUM 8.9 mg/dL (8.4-10.2); CARBON DIOXIDE 29 mmol/L (22-30); CHLORIDE 99 mmol/L (98-107); CREATINE KINASE 35 U/L (55-170); GLUCOSE 131 mg/dL (75-110); SODIUM 140.5 mmol/L (137-145); TOTAL PROTEIN 7.2 g/dL (6.3-8.2)
[2018-10-16 05:23] LABS: CREATINE KINASE MB 0.45 ng/mL (<4.55); TROPONIN I 0.015 ng/mL
--- NOTE | 2018-10-16 06:42 | PDOC H&P ---
History of Present Illness Admission Date/PCP: 10/15/18 15:51 DES MCMAHAN MD Patient complains of: Lower extremity edema and difficulty in walking History of Present Illness: DARLING NAVARRO is a 83 year old male This is a 82-year-old male with a significant history of the systolic heart failure with cardiomyopathy history of the chronic A. fib history of the chronic lymphedema and type 2 diabetes and multiple other comorbidity pretty much admitting in the hospital for the same reason discharged to the rehab facility came back home with the complaining of a more edemaAnd difficulty in walking Patient denied any chest pain no sob Past Medical History Cardiac Medical History: Reports: Atrial Fibrillation, Congestive Heart Failure , Coronary Artery Disease, Hyperlipidema, Hypertension Denies: Myocardial Infarction Pulmonary Medical History: Reports: Bronchitis Denies: Asthma, Chronic Obstructive Pulmonary Disease (COPD), Pneumonia Neurological Medical History: Denies: Seizures Endocrine Medical History: Reports: Diabetes Mellitus Type 2 GI Medical History: Reports: Gastroesophageal Reflux Disease Musculoskeltal Medical History: Reports: Arthritis Psychiatric Medical History: Reports: Depression Hematology: Denies: Anemia Past Surgical History Past Surgical History: Reports: Orthopedic Surgery, Pacemaker Social History Smoking Status: Never Smoker Frequency of Alcohol Use: None Hx Recreational Drug Use: No Hx Prescription Drug Abuse: No Family History Family History: Reviewed & Not Pertinent Parental Family History Reviewed: Yes Children Family History Reviewed: Yes Sibling(s) Family History Reviewed.: Yes Medication/Allergy Home Medications: Diltiazem HCl [Cardizem Cd 120 mg Capsule] 120 mg PO DAILY 01/20/12 Digoxin [Lanoxin 0.125 mg Tablet] 0.125 mg PO DAILY 01/21/12 Apixaban [Eliquis 5 mg Tablet] 5 mg PO Q12 #60 tablet 01/09/15 Aspirin [Adult Low Dose Aspirin EC] 81 mg PO DAILY 10/14/15 Allopurinol [Zyloprim] 300 mg PO DAILY 08/21/18 Furosemide [Lasix] 40 mg PO DAILY 08/21/18 Metoprolol Succinate 25 mg PO DAILY 08/21/18 Fish Oil/Dha/Epa [Fish Oil 1,200 mg Fish Oil] 1 cap PO DAILY 10/15/18 Allergies/Adverse Reactions: No Known Allergies Allergy (Verified 10/15/18 11:45) Review of Systems Constitutional: ABSENT: chills, fever(s), headache(s), weight gain, weight loss Eyes: ABSENT: visual disturbances Ears: ABSENT: hearing changes Cardiovascular: ABSENT: chest pain, dyspnea on exertion, edema, orthropnea, palpitations Respiratory: ABSENT: cough, hemoptysis Gastrointestinal: ABSENT: abdominal pain, constipation, diarrhea, hematemesis, hematochezia, nausea, vomiting Genitourinary: ABSENT: dysuria, hematuria Musculoskeletal: ABSENT: joint swelling Integumentary: ABSENT: rash, wounds Neurological: ABSENT: abnormal gait, abnormal speech, confusion, dizziness, focal weakness, syncope Psychiatric: ABSENT: anxiety, depression, homidical ideation, suicidal ideation Endocrine: ABSENT: cold intolerance, heat intolerance, menstrual abnormalities, polydipsia, polyuria Hematologic/Lymphatic: ABSENT: easy bleeding, easy bruising, lymphadenopathy Physical Exam Vital Signs: Temp Pulse Resp BP Pulse Ox 98.2 F 18 133/77 H 96 10/15/18 11:54 10/15/18 16:02 10/15/18 16:02 10/15/18 16:02 General appearance: PRESENT: no acute distress, well-developed, well-nourished Head exam: PRESENT: atraumatic, normocephalic Eye exam: PRESENT: conjunctiva pink, EOMI, PERRLA. ABSENT: scleral icterus Ear exam: PRESENT: normal external ear exam Mouth exam: PRESENT: moist, tongue midline Neck exam: PRESENT: full ROM. ABSENT: carotid bruit, JVD, lymphadenopathy, thyromegaly Respiratory exam: PRESENT: clear to auscultation celso Cardiovascular exam: PRESENT: RRR. ABSENT: diastolic murmur, rubs, systolic murmur Pulses: PRESENT: normal dorsalis pedis pul, +2 pedal pulses bilateral Vascular exam: PRESENT: normal capillary refill GI/Abdominal exam: PRESENT: normal bowel sounds, soft. ABSENT: distended, guarding, mass, organolmegaly, rebound, tenderness Rectal exam: PRESENT: deferred Extremities exam: PRESENT: pedal edema Neurological exam: PRESENT: alert, awake, oriented to person, oriented to place , oriented to time, oriented to situation, CN II-XII grossly intact. ABSENT: motor sensory deficit Psychiatric exam: PRESENT: appropriate affect, normal mood. ABSENT: homicidal ideation, suicidal ideation Skin exam: PRESENT: dry, intact, warm. ABSENT: cyanosis, rash Results Impressions: Chest X-Ray 10/15/18 12:40 IMPRESSION: NO ACUTE RADIOGRAPHIC FINDING IN THE CHEST. Venous Doppler Study 10/15/18 12:51 IMPRESSION: NO EVIDENCE DVT OR SVT IN EITHER LEG. Assessment & Plan - Diagnosis (1) Acute systolic heart failure Is this a current diagnosis for this admission?: Yes Plan: start lasix iv bid consult cardilogy (2) Impaired ambulation Is this a current diagnosis for this admission?: Yes Plan: get pt evaution (3) Peripheral edema Is this a current diagnosis for this admission?: Yes Plan: start lasix (4) Cardiomyopathy Qualifiers: Cardiomyopathy type: unspecified Qualified Code(s): I42.9 - Cardiomyopathy , unspecified Is this a current diagnosis for this admission?: Yes (5) Atrial fibrillation Qualifiers: Atrial fibrillation type: chronic Qualified Code(s): I48.2 - Chronic atrial fibrillation Is this a current diagnosis for this admission?: Yes (6) Hypertension Qualifiers: Hypertension type: essential hypertension Qualified Code(s): I10 - Essential (primary) hypertension Is this a current diagnosis for this admission?: Yes (7) Lymphedema Is this a current diagnosis for this admission?: Yes (8) Weakness Is this a current diagnosis for this admission?: Yes - Time Time Spent: 30 to 50 Minutes Medications reviewed and adjusted accordingly: Yes Anticipated discharge: SNF Within: Other - Inpatient Certification Based on my medical assessment, after consideration of the patient's comorbidities, presenting symptoms, or acuity I expect that the services needed warrant INPATIENT care.: Yes I certify that my determination is in accordance with my understanding of Medicare's requirements for reasonable and necessary INPATIENT services [42 CFR 412.3e].: Yes Medical Necessity: Significant Comorbidiites Make Outpatient Treatment Too Risky , Need Close Monitoring Due to Risk of Patient Decompensation 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
--- NOTE | 2018-10-16 08:14 | PDOC PROGRESS REPORT ---
Subjective Progress Note for:: 10/16/18 Subjective:: pt is doing well denied any chest pain no sob Reason For Visit: CHF,EDEMA Physical Exam Vital Signs: Temp Pulse Resp BP Pulse Ox 98.5 F 63 20 134/66 H 97 10/16/18 04:01 10/16/18 07:00 10/16/18 04:01 10/16/18 04:01 10/16/18 04:01 Intake & Output 10/15/18 10/16/18 10/17/18 06:59 06:59 06:59 Intake Total 532 Output Total 1550 Balance -1018 Weight 98.1 kg General appearance: PRESENT: no acute distress, well-developed, well-nourished Head exam: PRESENT: atraumatic, normocephalic Eye exam: PRESENT: conjunctiva pink, EOMI, PERRLA. ABSENT: scleral icterus Ear exam: PRESENT: normal external ear exam Mouth exam: PRESENT: moist, tongue midline Neck exam: PRESENT: full ROM. ABSENT: carotid bruit, JVD, lymphadenopathy, thyromegaly Cardiovascular exam: PRESENT: RRR. ABSENT: diastolic murmur, rubs, systolic murmur Pulses: PRESENT: normal dorsalis pedis pul, +2 pedal pulses bilateral Vascular exam: PRESENT: normal capillary refill GI/Abdominal exam: PRESENT: normal bowel sounds, soft. ABSENT: distended, guarding, mass, organolmegaly, rebound, tenderness Rectal exam: PRESENT: deferred Extremities exam: PRESENT: pedal edema Neurological exam: PRESENT: alert, awake, oriented to person, oriented to place , oriented to time, oriented to situation, CN II-XII grossly intact. ABSENT: motor sensory deficit Psychiatric exam: PRESENT: appropriate affect, normal mood. ABSENT: homicidal ideation, suicidal ideation Skin exam: PRESENT: dry, intact, warm. ABSENT: cyanosis, rash Results Laboratory Results: 10/16/18 03:58 10/16/18 03:58 10/16/18 10/16/18 03:58 03:58 WBC 6.3 RBC 4.83 Hgb 15.8 Hct 46.0 MCV 95 MCH 32.7 MCHC 34.4 RDW 15.8 H Plt Count 133 L Seg Neutrophils % 61.4 Lymphocytes % 25.6 Monocytes % 9.1 Eosinophils % 3.0 Basophils % 0.9 Absolute Neutrophils 3.9 Absolute Lymphocytes 1.6 Absolute Monocytes 0.6 Absolute Eosinophils 0.2 Absolute Basophils 0.1 Sodium 140.5 Potassium 4.0 Chloride 99 Carbon Dioxide 29 Anion Gap 13 BUN 22 H Creatinine 1.06 Est GFR ( Amer) > 60 Est GFR (Non-Af Amer) > 60 Glucose 131 H Calcium 8.9 Magnesium 2.0 Total Bilirubin 1.1 AST 28 ALT 29 Alkaline Phosphatase 102 Total Protein 7.2 Albumin 3.9 10/15/18 10/15/18 10/15/18 16:28 16:28 22:02 Creatine Kinase 35 L 34 L CK-MB (CK-2) 0.45 Troponin I 0.014 NT-Pro-B Natriuret Pep 10/15/18 10/16/18 10/16/18 22:02 03:58 03:58 Creatine Kinase 35 L CK-MB (CK-2) 0.49 0.45 Troponin I 0.026 0.015 NT-Pro-B Natriuret Pep 1270 H Impressions: Chest X-Ray 10/15/18 12:40 IMPRESSION: NO ACUTE RADIOGRAPHIC FINDING IN THE CHEST. Venous Doppler Study 10/15/18 12:51 IMPRESSION: NO EVIDENCE DVT OR SVT IN EITHER LEG. Assessment & Plan - Diagnosis (1) Acute systolic heart failure Is this a current diagnosis for this admission?: Yes Plan: as per d/w dr larry and s/o cont curr med and pt is not in heart faiure (2) Impaired ambulation Is this a current diagnosis for this admission?: Yes Plan: get pt evaution (3) Peripheral edema Is this a current diagnosis for this admission?: Yes (4) Cardiomyopathy Qualifiers: Cardiomyopathy type: unspecified Qualified Code(s): I42.9 - Cardiomyopathy , unspecified Is this a current diagnosis for this admission?: Yes (5) Atrial fibrillation Qualifiers: Atrial fibrillation type: chronic Qualified Code(s): I48.2 - Chronic atrial fibrillation Is this a current diagnosis for this admission?: Yes Plan: cont eliquis (6) Hypertension Qualifiers: Hypertension type: essential hypertension Qualified Code(s): I10 - Essential (primary) hypertension Is this a current diagnosis for this admission?: Yes Plan: stable (7) Lymphedema Is this a current diagnosis for this admission?: Yes (8) Weakness Is this a current diagnosis for this admission?: Yes - Time Time Spent with patient: 15-24 minutes Medications reviewed and adjusted accordingly: Yes Anticipated discharge: Home, Home with Homehealth Within: Other - Inpatient Certification I certify that my determination is in accordance with my understanding of Medicare's requirements for reasonable and necessary INPATIENT services [42 CFR 412.3e].: Yes Medical Necessity: Need Close Monitoring Due to Risk of Patient Decompensation Post Hospital Care: D/C Platform Power Technician Documentation - Plan Summary Plan Summary: cont curr med
[2018-10-16] MEDS ORDERED: EPA PO SCH (10:00)
[2018-10-16] MEDS ORDERED: DHA PO SCH (10:00)
[2018-10-16] MEDS ORDERED: FISH OIL PO SCH (10:00)
[2018-10-16] MEDS: ALLOPURINOL 300 MG TABLET PO SCH (10:37)
[2018-10-16] MEDS: DIGOXIN 0.125 MG TABLET PO SCH (10:37)
[2018-10-16] MEDS: ASPIRIN 81 MG TABLET, ENT COATED PO SCH (10:38)
[2018-10-16] MEDS: DILTIAZEM HCL 120 MG CAP.SR.24H PO SCH (10:38)
[2018-10-16] MEDS: FUROSEMIDE INJ/PF 40 MG/4 ML SDV IV SCH (10:39)
[2018-10-16] MEDS: DOCUSATE SODIUM 100 MG CAPSULE PO SCH ×2 (10:39→17:16)
[2018-10-16] MEDS: OMEGA-3 ACID ETHYL ESTERS 1 GM CAPSULE PO SCH (10:39)
[2018-10-16] MEDS: METOPROLOL SUCCINATE 25 MG TAB.SR.24H PO SCH (10:39)
[2018-10-16] MEDS: APIXABAN 2.5 MG TABLET PO SCH ×2 (10:39→21:24)
[2018-10-16] MEDS: INSULIN LISPRO 100 UNIT/ML 3 ML VIAL SUBCUT PRN (11:38)
[2018-10-17 05:33] LABS: ABSOLUTE EOSINOPHILS # (AUTO) 0.2 10^3/uL (0.0-0.6); ABSOLUTE LYMPHOCYTES (AUTO) 1.7 10^3/uL (0.5-4.7); ABSOLUTE MONOCYTES (AUTO) 0.5 10^3/uL (0.1-1.4); ABSOLUTE NEUT (AUTO) 3.2 10^3/uL (1.7-8.2); BASOPHILS % (AUTO) 0.7 % (0-2); HEMATOCRIT 45.3 % (37.9-51.0); HEMOGLOBIN 15.5 g/dL (13.5-17.0); LYMPHOCYTES % (AUTO) 29.7 % (13-45); MEAN CORPUSCULAR HEMOGLOBIN 32.3 pg (27.0-33.4); MEAN CORPUSCULAR HGB CONC 34.2 g/dL (32.0-36.0); MEAN CORPUSCULAR VOLUME 94 fl (80-97); MONOCYTES % (AUTO) 9.3 % (3-13); PLATELET COUNT 149 10^3/uL (150-450); RED CELL DISTRIBUTION WIDTH 15.6 % (11.5-14.0); SEGMENTED NEUTROPHILS % (AUTO) 56.3 % (42-78); TOTAL CELLS COUNTED % (AUTO) 100 %; WHITE BLOOD COUNT 5.6 10^3/uL (4.0-10.5)
[2018-10-17 06:06] LABS: ANION GAP 10 (5-19); BLOOD UREA NITROGEN 25 mg/dL (7-20); CALCIUM 9.1 mg/dL (8.4-10.2); CARBON DIOXIDE 28 mmol/L (22-30); CHLORIDE 101 mmol/L (98-107); GLUCOSE 136 mg/dL (75-110); POTASSIUM 4.1 mmol/L (3.6-5.0); SODIUM 139.2 mmol/L (137-145)
[2018-10-17] MEDS: ALLOPURINOL 300 MG TABLET PO SCH (10:51)
[2018-10-17] MEDS: OMEGA-3 ACID ETHYL ESTERS 1 GM CAPSULE PO SCH (10:51)
[2018-10-17] MEDS: METOPROLOL SUCCINATE 25 MG TAB.SR.24H PO SCH (10:51)
[2018-10-17] MEDS: DILTIAZEM HCL 120 MG CAP.SR.24H PO SCH (10:51)
[2018-10-17] MEDS: DIGOXIN 0.125 MG TABLET PO SCH (10:51)
[2018-10-17] MEDS: APIXABAN 2.5 MG TABLET PO SCH ×2 (10:51→22:32)
[2018-10-17] MEDS: ASPIRIN 81 MG TABLET, ENT COATED PO SCH (10:51)
[2018-10-17] MEDS: FUROSEMIDE 40 MG TABLET PO SCH (10:51)
[2018-10-17] MEDS: DOCUSATE SODIUM 100 MG CAPSULE PO SCH ×2 (10:51→17:35)
--- NOTE | 2018-10-17 17:43 | PDOC PROGRESS REPORT ---
Subjective Progress Note for:: 10/17/18 Subjective:: Patient seen by the bedside awaiting disposition, admitted for acute systolic heart failure Reason For Visit: CHF,EDEMA Physical Exam Vital Signs: Temp Pulse Resp BP Pulse Ox 97.4 F 60 12 122/65 95 10/17/18 14:00 10/17/18 14:00 10/17/18 14:00 10/17/18 14:00 10/17/18 14:00 Intake & Output 10/16/18 10/17/18 10/18/18 06:59 06:59 06:59 Intake Total 814 232 7851 Output Total 1550 1252 500 Balance -1018 -332 565 Weight 98.1 kg 89.1 kg General appearance: PRESENT: no acute distress Eye exam: PRESENT: PERRLA Respiratory exam: PRESENT: clear to auscultation celso Cardiovascular exam: PRESENT: +S1, +S2 GI/Abdominal exam: PRESENT: soft Neurological exam: PRESENT: alert Results Laboratory Results: 10/17/18 05:18 10/17/18 05:18 10/17/18 10/17/18 05:18 05:18 WBC 5.6 RBC 4.80 Hgb 15.5 Hct 45.3 MCV 94 MCH 32.3 MCHC 34.2 RDW 15.6 H Plt Count 149 L Seg Neutrophils % 56.3 Lymphocytes % 29.7 Monocytes % 9.3 Eosinophils % 4.0 Basophils % 0.7 Absolute Neutrophils 3.2 Absolute Lymphocytes 1.7 Absolute Monocytes 0.5 Absolute Eosinophils 0.2 Absolute Basophils 0.0 Sodium 139.2 Potassium 4.1 Chloride 101 Carbon Dioxide 28 Anion Gap 10 BUN 25 H Creatinine 1.01 Est GFR ( Amer) > 60 Est GFR (Non-Af Amer) > 60 Glucose 136 H Calcium 9.1 10/15/18 10/15/18 10/15/18 16:28 16:28 22:02 Creatine Kinase 35 L 34 L CK-MB (CK-2) 0.45 Troponin I 0.014 NT-Pro-B Natriuret Pep 10/15/18 10/16/18 10/16/18 22:02 03:58 03:58 Creatine Kinase 35 L CK-MB (CK-2) 0.49 0.45 Troponin I 0.026 0.015 NT-Pro-B Natriuret Pep 1270 H Impressions: Chest X-Ray 10/15/18 12:40 IMPRESSION: NO ACUTE RADIOGRAPHIC FINDING IN THE CHEST. Venous Doppler Study 10/15/18 12:51 IMPRESSION: NO EVIDENCE DVT OR SVT IN EITHER LEG. Assessment & Plan - Diagnosis (1) Acute systolic heart failure Is this a current diagnosis for this admission?: Yes Plan: Patient is stable, awaiting disposition, continue treatment
[2018-10-17] MEDS: INSULIN LISPRO 100 UNIT/ML 3 ML VIAL SUBCUT PRN (22:32)
[2018-10-18 07:04] LABS: ABSOLUTE EOSINOPHILS # (AUTO) 0.2 10^3/uL (0.0-0.6); ABSOLUTE LYMPHOCYTES (AUTO) 1.7 10^3/uL (0.5-4.7); ABSOLUTE MONOCYTES (AUTO) 0.5 10^3/uL (0.1-1.4); ABSOLUTE NEUT (AUTO) 3.2 10^3/uL (1.7-8.2); BASOPHILS % (AUTO) 0.7 % (0-2); EOSINOPHILS % (AUTO) 3.6 % (0-6); HEMATOCRIT 44.6 % (37.9-51.0); HEMOGLOBIN 15.4 g/dL (13.5-17.0); LYMPHOCYTES % (AUTO) 30.2 % (13-45); MEAN CORPUSCULAR HEMOGLOBIN 32.7 pg (27.0-33.4); MEAN CORPUSCULAR HGB CONC 34.4 g/dL (32.0-36.0); MEAN CORPUSCULAR VOLUME 95 fl (80-97); MONOCYTES % (AUTO) 8.8 % (3-13); PLATELET COUNT 143 10^3/uL (150-450); RED CELL DISTRIBUTION WIDTH 15.8 % (11.5-14.0); SEGMENTED NEUTROPHILS % (AUTO) 56.7 % (42-78); TOTAL CELLS COUNTED % (AUTO) 100 %; WHITE BLOOD COUNT 5.6 10^3/uL (4.0-10.5)
[2018-10-18 07:21] LABS: ANION GAP 11 (5-19); BLOOD UREA NITROGEN 28 mg/dL (7-20); CALCIUM 9.3 mg/dL (8.4-10.2); CARBON DIOXIDE 27 mmol/L (22-30); CHLORIDE 102 mmol/L (98-107); GLUCOSE 132 mg/dL (75-110); POTASSIUM 4.3 mmol/L (3.6-5.0); SODIUM 140.4 mmol/L (137-145)
[2018-10-18] MEDS: OMEGA-3 ACID ETHYL ESTERS 1 GM CAPSULE PO SCH (09:25)
[2018-10-18] MEDS: DIGOXIN 0.125 MG TABLET PO SCH (09:26)
[2018-10-18] MEDS: DILTIAZEM HCL 120 MG CAP.SR.24H PO SCH (09:26)
[2018-10-18] MEDS: DOCUSATE SODIUM 100 MG CAPSULE PO SCH ×2 (09:26→17:26)
[2018-10-18] MEDS: ASPIRIN 81 MG TABLET, ENT COATED PO SCH (09:26)
[2018-10-18] MEDS: ALLOPURINOL 300 MG TABLET PO SCH (09:26)
[2018-10-18] MEDS: FUROSEMIDE 40 MG TABLET PO SCH (09:26)
[2018-10-18] MEDS: APIXABAN 2.5 MG TABLET PO SCH ×2 (09:26→21:49)
[2018-10-18] MEDS: METOPROLOL SUCCINATE 25 MG TAB.SR.24H PO SCH (09:27)
--- NOTE | 2018-10-18 19:06 | PDOC PROGRESS REPORT ---
Subjective Progress Note for:: 10/18/18 Subjective:: Patient seen by the bedside awaiting disposition, admitted for acute systolic heart failure Reason For Visit: CHF,EDEMA Physical Exam Vital Signs: Temp Pulse Resp BP Pulse Ox 98.1 F 60 17 116/64 96 10/18/18 16:00 10/18/18 16:00 10/18/18 16:00 10/18/18 16:00 10/18/18 16:00 Intake & Output 10/17/18 10/18/18 10/19/18 06:59 06:59 06:59 Intake Total 920 1685 1123 Output Total 1252 1775 1300 Balance -332 -90 -177 Weight 89.1 kg 91.1 kg General appearance: PRESENT: no acute distress Eye exam: PRESENT: PERRLA Respiratory exam: PRESENT: clear to auscultation celso Cardiovascular exam: PRESENT: +S1, +S2 Neurological exam: PRESENT: alert Results Laboratory Results: 10/18/18 05:40 10/18/18 05:40 10/18/18 10/18/18 05:40 05:40 WBC 5.6 RBC 4.70 Hgb 15.4 Hct 44.6 MCV 95 MCH 32.7 MCHC 34.4 RDW 15.8 H Plt Count 143 L Seg Neutrophils % 56.7 Lymphocytes % 30.2 Monocytes % 8.8 Eosinophils % 3.6 Basophils % 0.7 Absolute Neutrophils 3.2 Absolute Lymphocytes 1.7 Absolute Monocytes 0.5 Absolute Eosinophils 0.2 Absolute Basophils 0.0 Sodium 140.4 Potassium 4.3 Chloride 102 Carbon Dioxide 27 Anion Gap 11 BUN 28 H Creatinine 1.02 Est GFR ( Amer) > 60 Est GFR (Non-Af Amer) > 60 Glucose 132 H Calcium 9.3 10/15/18 10/15/18 10/15/18 16:28 16:28 22:02 Creatine Kinase 35 L 34 L CK-MB (CK-2) 0.45 Troponin I 0.014 NT-Pro-B Natriuret Pep 10/15/18 10/16/18 10/16/18 22:02 03:58 03:58 Creatine Kinase 35 L CK-MB (CK-2) 0.49 0.45 Troponin I 0.026 0.015 NT-Pro-B Natriuret Pep 1270 H Impressions: Chest X-Ray 10/15/18 12:40 IMPRESSION: NO ACUTE RADIOGRAPHIC FINDING IN THE CHEST. Venous Doppler Study 10/15/18 12:51 IMPRESSION: NO EVIDENCE DVT OR SVT IN EITHER LEG. Assessment & Plan - Diagnosis (1) Acute systolic heart failure Is this a current diagnosis for this admission?: Yes Plan: Patient is stable, awaiting disposition, continue treatment
[2018-10-19 06:03] LABS: ANION GAP 10 (5-19); BLOOD UREA NITROGEN 28 mg/dL (7-20); CALCIUM 9.2 mg/dL (8.4-10.2); CARBON DIOXIDE 30 mmol/L (22-30); CHLORIDE 101 mmol/L (98-107); GLUCOSE 136 mg/dL (75-110); POTASSIUM 4.5 mmol/L (3.6-5.0); SODIUM 141.2 mmol/L (137-145)
[2018-10-19] MEDS: DOCUSATE SODIUM 100 MG CAPSULE PO SCH ×2 (09:23→17:32)
[2018-10-19] MEDS: APIXABAN 2.5 MG TABLET PO SCH ×2 (09:23→22:21)
[2018-10-19] MEDS: ALLOPURINOL 300 MG TABLET PO SCH (09:23)
[2018-10-19] MEDS: DILTIAZEM HCL 120 MG CAP.SR.24H PO SCH (09:24)
[2018-10-19] MEDS: FUROSEMIDE 40 MG TABLET PO SCH (09:24)
[2018-10-19] MEDS: METOPROLOL SUCCINATE 25 MG TAB.SR.24H PO SCH (09:24)
[2018-10-19] MEDS: OMEGA-3 ACID ETHYL ESTERS 1 GM CAPSULE PO SCH (09:24)
[2018-10-19] MEDS: ASPIRIN 81 MG TABLET, ENT COATED PO SCH (09:24)
[2018-10-19] MEDS: DIGOXIN 0.125 MG TABLET PO SCH (09:25)
--- NOTE | 2018-10-19 13:35 | PDOC TRANSFER SUMMARY ---
General - Admit/Disc Date/PCP Admission Date/Primary Care Provider: 10/15/18 15:51 DES MCMAHAN MD Discharge Date: 10/19/18 - Discharge Diagnosis (1) Acute systolic heart failure Is this a current diagnosis for this admission?: Yes Summary: Continues to current medications as per discussed with the patient's cardiology who reviewed all the chart and suggest no need for further evaluation continues the same medications (2) Impaired ambulation Is this a current diagnosis for this admission?: Yes Summary: Just deconditioning continues to physical therapy fall precautions Patients concerns about the ALS patient seen by the neurology in the past and [place] discussed with the patient's follow outpatients neurology (3) Peripheral edema Is this a current diagnosis for this admission?: Yes Summary: Chronic lymphedema continues to elastic stocking follow physical therapy and may be considered will see the vascular surgeon as outpatient (4) Cardiomyopathy Is this a current diagnosis for this admission?: Yes Summary: Dr. Mcmahan follow outpatient (5) Atrial fibrillation Is this a current diagnosis for this admission?: Yes Summary: Currently well under Contro continues to Eliquis (6) Hypertension Is this a current diagnosis for this admission?: Yes Summary: all stable (7) Lymphedema Is this a current diagnosis for this admission?: Yes (8) Weakness Is this a current diagnosis for this admission?: Yes - Additional Information Resuscitation Status: Full Code Discharge Diet: Diabetic Discharge Activity: Activity As Tolerated Prescriptions: Apixaban [Eliquis 2.5 mg Tablet] 2.5 mg PO Q12 #60 tablet Home Medications: Diltiazem HCl [Cardizem Cd 120 mg Capsule] 120 mg PO DAILY 01/20/12 Digoxin [Lanoxin 0.125 mg Tablet] 0.125 mg PO DAILY 01/21/12 Aspirin [Adult Low Dose Aspirin EC] 81 mg PO DAILY 10/14/15 Allopurinol [Zyloprim] 300 mg PO DAILY 08/21/18 Furosemide [Lasix] 40 mg PO DAILY 08/21/18 Metoprolol Succinate 25 mg PO DAILY 08/21/18 Fish Oil/Dha/Epa [Fish Oil 1,200 mg Fish Oil] 1 cap PO DAILY 10/15/18 Apixaban [Eliquis 2.5 mg Tablet] 2.5 mg PO Q12 #60 tablet 10/19/18 History of Present Illness Admission Date/PCP: 10/15/18 15:51 DES MCMAHAN MD History of Present Illness: DARLING NAVARRO is a 83 year old male This is a 82-year-old male with a significant history of the systolic heart failure with cardiomyopathy history of the chronic A. fib history of the chronic lymphedema and type 2 diabetes and multiple other comorbidity pretty much admitting in the hospital for the same reason discharged to the rehab facility came back home with the complaining of a more edemaAnd difficulty in walking Patient denied any chest pain no sob Hospital Course Hospital Course: This is a 83-year-old male's basically came to the emergency department with a complaining of her left lower extremity edema which a venous Doppler was negative patients have a mild CHF but other than that no other acute finding No significant history of the chronic lymphedema and venous insufficiency patients need a elastic stockings Patient admitting in the hospital given IV Lasix and discussed with the patient' s cardiology Dr. Mcmahan and suggest to no need for any further evaluations continues to current medications and most likely and not an acute heart failure issues mostly a chronic de conditions and chronic lymphedema patient's response well with the physical therapy walk with the walker I think patients still have a difficult time to live by himself and at this point patients get a benefit to go to the rehab facility Physical Exam Vital Signs: Temp Pulse Resp BP Pulse Ox 98.3 F 60 17 118/66 96 10/19/18 12:00 10/19/18 12:00 10/19/18 12:00 10/19/18 12:00 10/19/18 12:00 Intake & Output 10/18/18 10/19/18 10/20/18 06:59 06:59 06:59 Intake Total 1685 1123 857 Output Total 1775 1500 Balance -90 -377 857 Weight 91.1 kg 90.1 kg General appearance: PRESENT: no acute distress, well-developed, well-nourished Head exam: PRESENT: atraumatic, normocephalic Eye exam: PRESENT: conjunctiva pink, EOMI, PERRLA. ABSENT: scleral icterus Ear exam: PRESENT: normal external ear exam Mouth exam: PRESENT: moist, tongue midline Neck exam: ABSENT: carotid bruit, JVD, lymphadenopathy, thyromegaly Respiratory exam: PRESENT: clear to auscultation celso. ABSENT: rales, rhonchi, wheezes Cardiovascular exam: PRESENT: RRR. ABSENT: diastolic murmur, rubs, systolic murmur Pulses: PRESENT: normal dorsalis pedis pul Vascular exam: PRESENT: normal capillary refill GI/Abdominal exam: PRESENT: normal bowel sounds, soft. ABSENT: distended, guarding, mass, organolmegaly, rebound, tenderness Rectal exam: PRESENT: deferred Extremities exam: PRESENT: full ROM, pedal edema. ABSENT: calf tenderness, clubbing Neurological exam: PRESENT: alert, awake, oriented to person, oriented to place , oriented to time, oriented to situation, CN II-XII grossly intact. ABSENT: motor sensory deficit Psychiatric exam: PRESENT: appropriate affect, normal mood. ABSENT: homicidal ideation, suicidal ideation Skin exam: PRESENT: dry, intact, warm. ABSENT: cyanosis, rash Results Laboratory Results: 10/18/18 05:40 10/19/18 04:18 10/19/18 04:18 Sodium 141.2 Potassium 4.5 Chloride 101 Carbon Dioxide 30 Anion Gap 10 BUN 28 H Creatinine 1.06 Est GFR ( Amer) > 60 Est GFR (Non-Af Amer) > 60 Glucose 136 H Calcium 9.2 10/15/18 10/15/18 10/15/18 16:28 16:28 22:02 Creatine Kinase 35 L 34 L CK-MB (CK-2) 0.45 Troponin I 0.014 NT-Pro-B Natriuret Pep 10/15/18 10/16/18 10/16/18 22:02 03:58 03:58 Creatine Kinase 35 L CK-MB (CK-2) 0.49 0.45 Troponin I 0.026 0.015 NT-Pro-B Natriuret Pep 1270 H Impressions: Chest X-Ray 10/15/18 12:40 IMPRESSION: NO ACUTE RADIOGRAPHIC FINDING IN THE CHEST. Venous Doppler Study 10/15/18 12:51 IMPRESSION: NO EVIDENCE DVT OR SVT IN EITHER LEG. Transfer Plan - Time Spent with Patient Time spent with patient: Greater than 30 Minutes Qualifiers - * PATIENT BEING DISCHARGED WITH ANY OF THE FOLLOWING DIAGNOSIS: No VTE patient discharged on overlapping Therapy?: Yes Plan Time Spent: Greater than 30 Minutes - Continues to current medications fall precaution physical therapy
--- NOTE | 2018-10-20 08:34 | PDOC PROGRESS REPORT ---
Subjective Progress Note for:: 10/20/18 Subjective:: pt is doing well denied any chest pain no sob Reason For Visit: CHF,EDEMA Physical Exam Vital Signs: Temp Pulse Resp BP Pulse Ox 97.9 F 59 L 12 102/60 99 10/20/18 08:13 10/20/18 08:13 10/20/18 08:13 10/20/18 08:13 10/20/18 08:13 Intake & Output 10/19/18 10/20/18 10/21/18 06:59 06:59 06:59 Intake Total 1123 1507 Output Total 1500 1400 Balance -377 107 Weight 90.1 kg 91.2 kg General appearance: PRESENT: no acute distress, well-developed, well-nourished Head exam: PRESENT: atraumatic, normocephalic Eye exam: PRESENT: conjunctiva pink, EOMI, PERRLA. ABSENT: scleral icterus Ear exam: PRESENT: normal external ear exam Mouth exam: PRESENT: moist, tongue midline Neck exam: PRESENT: full ROM. ABSENT: carotid bruit, JVD, lymphadenopathy, thyromegaly Cardiovascular exam: PRESENT: RRR. ABSENT: diastolic murmur, rubs, systolic murmur Pulses: PRESENT: normal dorsalis pedis pul, +2 pedal pulses bilateral Vascular exam: PRESENT: normal capillary refill GI/Abdominal exam: PRESENT: normal bowel sounds, soft. ABSENT: distended, guarding, mass, organolmegaly, rebound, tenderness Rectal exam: PRESENT: deferred Musculoskeletal exam: PRESENT: ambulatory Neurological exam: PRESENT: alert, awake, oriented to person, oriented to place , oriented to time, oriented to situation, CN II-XII grossly intact. ABSENT: motor sensory deficit Psychiatric exam: PRESENT: appropriate affect, normal mood. ABSENT: homicidal ideation, suicidal ideation Skin exam: PRESENT: dry, intact, warm. ABSENT: cyanosis, rash Results Laboratory Results: 10/18/18 05:40 10/19/18 04:18 10/15/18 10/15/18 10/15/18 16:28 16:28 22:02 Creatine Kinase 35 L 34 L CK-MB (CK-2) 0.45 Troponin I 0.014 NT-Pro-B Natriuret Pep 10/15/18 10/16/18 10/16/18 22:02 03:58 03:58 Creatine Kinase 35 L CK-MB (CK-2) 0.49 0.45 Troponin I 0.026 0.015 NT-Pro-B Natriuret Pep 1270 H Impressions: Chest X-Ray 10/15/18 12:40 IMPRESSION: NO ACUTE RADIOGRAPHIC FINDING IN THE CHEST. Venous Doppler Study 10/15/18 12:51 IMPRESSION: NO EVIDENCE DVT OR SVT IN EITHER LEG. Assessment & Plan - Diagnosis (1) Acute systolic heart failure Is this a current diagnosis for this admission?: Yes Plan: as per d/w dr larry and s/o cont curr med and pt is not in heart faiure (2) Impaired ambulation Is this a current diagnosis for this admission?: Yes Plan: get pt evaution (3) Peripheral edema Is this a current diagnosis for this admission?: Yes Plan: start lasix (4) Cardiomyopathy Qualifiers: Cardiomyopathy type: unspecified Qualified Code(s): I42.9 - Cardiomyopathy , unspecified Is this a current diagnosis for this admission?: Yes (5) Atrial fibrillation Qualifiers: Atrial fibrillation type: chronic Qualified Code(s): I48.2 - Chronic atrial fibrillation Is this a current diagnosis for this admission?: Yes Plan: cont eliquis (6) Hypertension Qualifiers: Hypertension type: essential hypertension Qualified Code(s): I10 - Essential (primary) hypertension Is this a current diagnosis for this admission?: Yes Plan: stable (7) Lymphedema Is this a current diagnosis for this admission?: Yes (8) Weakness Is this a current diagnosis for this admission?: Yes - Time Time Spent with patient: 15-24 minutes Medications reviewed and adjusted accordingly: Yes Anticipated discharge: SNF Within: when bed available - Plan Summary Plan Summary: Continue current medication
[2018-10-20] MEDS: DIGOXIN 0.125 MG TABLET PO SCH (10:16)
[2018-10-20] MEDS: ASPIRIN 81 MG TABLET, ENT COATED PO SCH (10:16)
[2018-10-20] MEDS: DILTIAZEM HCL 120 MG CAP.SR.24H PO SCH (10:16)
[2018-10-20] MEDS: OMEGA-3 ACID ETHYL ESTERS 1 GM CAPSULE PO SCH (10:16)
[2018-10-20] MEDS: APIXABAN 2.5 MG TABLET PO SCH ×2 (10:17→21:26)
[2018-10-20] MEDS: METOPROLOL SUCCINATE 25 MG TAB.SR.24H PO SCH (10:17)
[2018-10-20] MEDS: FUROSEMIDE 40 MG TABLET PO SCH (10:17)
[2018-10-20] MEDS: ALLOPURINOL 300 MG TABLET PO SCH (10:17)
[2018-10-20] MEDS: DOCUSATE SODIUM 100 MG CAPSULE PO SCH ×2 (10:17→17:18)
[2018-10-20] MEDS: INSULIN LISPRO 100 UNIT/ML 3 ML VIAL SUBCUT PRN (12:24)
[2018-10-21] MEDS: DOCUSATE SODIUM 100 MG CAPSULE PO SCH ×2 (10:19→17:11)
[2018-10-21] MEDS: METOPROLOL SUCCINATE 25 MG TAB.SR.24H PO SCH (10:19)
[2018-10-21] MEDS: FUROSEMIDE 40 MG TABLET PO SCH (10:19)
[2018-10-21] MEDS: DILTIAZEM HCL 120 MG CAP.SR.24H PO SCH (10:19)
[2018-10-21] MEDS: ALLOPURINOL 300 MG TABLET PO SCH (10:19)
[2018-10-21] MEDS: OMEGA-3 ACID ETHYL ESTERS 1 GM CAPSULE PO SCH (10:19)
[2018-10-21] MEDS: APIXABAN 2.5 MG TABLET PO SCH (10:19)
[2018-10-21] MEDS: ASPIRIN 81 MG TABLET, ENT COATED PO SCH (10:19)
[2018-10-21] MEDS: DIGOXIN 0.125 MG TABLET PO SCH (10:20)
[2018-10-21 17:07] VITALS: BP 101/60
== END 2018-10-21 20:30 | DRG 291 ==
LOC: ER 11:39 → EH 15:20 → OBSVTOIN 15:51 → 5 16:58
PROVIDERS: ADMIT Family Medicine; ATTEND Family Medicine
PROC: 3E0F73Z Introduction of Anti-inflammatory into Respiratory Tract, Via Natural or Artificial Opening (ICD-10-PCS; principal; 2018-10-15)
PROC: 3E02340 Introduction of Influenza Vaccine into Muscle, Percutaneous Approach (ICD-10-PCS; 2018-10-21)
DX: I11.0 Hypertensive heart disease with heart failure (principal); I50.21 Acute systolic (congestive) heart failure; I42.9 Cardiomyopathy, unspecified; I89.0 Lymphedema, not elsewhere classified; I48.2 Chronic atrial fibrillation; I25.10 Atherosclerotic heart disease of native coronary artery without angina pectoris; E78.00 Pure hypercholesterolemia, unspecified; E11.9 Type 2 diabetes mellitus without complications; K21.9 Gastro-esophageal reflux disease without esophagitis; M19.90 Unspecified osteoarthritis, unspecified site; F32.9 Major depressive disorder, single episode, unspecified; Z96.641 Presence of right artificial hip joint; Z23 Encounter for immunization; Z79.82 Long term (current) use of aspirin; Z79.899 Other long term (current) drug therapy; Z95.0 Presence of cardiac pacemaker; Z79.01 Long term (current) use of anticoagulants
CPT/HCPCS: 36415; 71045; 80048; 80053; 80162; 82550; 82553; 82962; 83735; 83880; 84484; 85025; 90471; 90686; 93005; 93010; 93970; 96374; 99285; G0008; G8978-GP; G8979-GP; G8987-GO; G8988-GO; J1815; J1940

== ENCOUNTER 2019-01-03 11:36 | Emergency (ER) | payer MEDICARE, OTHER ==
[2019-01-03] MEDS ORDERED: TETRACAINE HCL 0.5% OPH SOLN 4 ML OD ONE (12:21)
[2019-01-03] MEDS ORDERED: TETRACAINE HCL 0.5% OPH SOLN 4 ML ONE (14:04)
--- NOTE | 2019-01-03 14:31 | ER Document Report ---
HPI - HPI Time Seen by Provider: 01/03/19 12:16 Pain Level: 3 Context: Patient is an 83-year-old male who presents to the emergency department with a chief complaint of right eye pain. The pain is mainly at the front of his eye. He states that he feels like there is sand in his eye. His symptoms started on Friday, he does not recall anything getting into his eyes, but woke up with eye irritation and felt like there was something in his eye at the time. 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 He has not noticed any improvement in his symptoms since then. He does also have associated redness to his conjunctiva. His past medical history includes atrial fibrillation, cardiomyopathy, and hyperlipidemia. - CONSTITUTIONAL Constitutional: DENIES: Fever, Chills - EENT EENT: REPORTS: Eye problems - Redness and pain. DENIES: Sore Throat, Ear Pain, Nasal Drainage-Clear, Nasal Drainage-Purulent, Congestion - NEURO Neurology: DENIES: Headache - RESPIRATORY Respiratory: DENIES: Trouble Breathing - REPRODUCTIVE Reproductive: DENIES: : - DERM Skin Color: Normal, [place] Skin Problems: None Past Medical History - Social History Smoking Status: Never Smoker Frequency of alcohol use: None Drug Abuse: None Family History: Reviewed & Not Pertinent Patient has suicidal ideation: No Patient has homicidal ideation: No - Past Medical History Cardiac Medical History: Reports: Hx Atrial Fibrillation, Hx Congestive Heart Failure, Hx Coronary Artery Disease, Hx Hypercholesterolemia, Hx Hypertension Denies: Hx Heart Attack Pulmonary Medical History: Reports: Hx Bronchitis Denies: Hx Asthma, Hx COPD, Hx Pneumonia Neurological Medical History: Denies: Hx Cerebrovascular Accident, Hx Seizures Endocrine Medical History: Reports: Hx Diabetes Mellitus Type 2 Renal/ Medical History: Denies: Hx Peritoneal Dialysis GI Medical History: Reports: Hx Gastroesophageal Reflux Disease Musculoskeletal Medical History: Reports Hx Arthritis Skin Medical History: Denies Hx MRSA Psychiatric Medical History: Reports: Hx Depression Infectious Medical History: Past Surgical History: Reports: Hx Orthopedic Surgery, Hx Pacemaker - Immunizations Immunizations up to date: Yes Hx Diphtheria, Pertussis, Tetanus Vaccination: Yes - pt thinks last tetanus was less than 5 years ago Hx Pneumococcal Vaccination: 08/17/09 Vertical Provider Document - CONSTITUTIONAL Exam Limitations: No Limitations General Appearance: No Apparent Distress - INFECTION CONTROL TRAVEL OUTSIDE OF THE [place] IN LAST 30 DAYS: No - HEENT HEENT: Conjuctival Injection Notes: Micro abrasions noted sclera on the inferior aspect of the iris. Course - Re-evaluation Re-evalutation: 01/03/19 14:34 Based off patient's physical exam, I will switch his antibiotic eyedrops to Polytrim eyedrops and start him on Acular eyedrops. Negative Marcie test. No globe rupture noted. Verbal discharge instructions were given to the patient and his [id number] who is at bedside. They verbalized understanding. They are stable for discharge. - Vital Signs Vital signs: Temp Pulse Resp BP Pulse Ox 98.8 F 59 L 16 125/79 98 01/03/19 12:04 01/03/19 12:04 01/03/19 12:04 01/03/19 12:04 01/03/19 12:04 Discharge - Discharge Clinical Impression: Pain in right eye, Redness of right eye Condition: Stable Disposition: HOME, SELF-CARE Additional Instructions: You were seen today in the emergency department for right eye pain. You have been given pain eyedrops. Please take as directed. Please stop taking the eyedrops that were given to you and restart the new antibiotic drops that are prescribed to you. Please follow-up with the international sales manager tomorrow in regards to this visit. If your symptoms get worse, you lose your eyesight, or have any symptoms that are worrisome to you, please return to the emergency department. Prescriptions: Ketorolac Tromethamine [Acular] 1 drop RT_EYE QIDP PRN #5 ml PRN Reason: Polymyxin B Sulf/Trimethoprim [Polytrim Eye Drops] 1 drop OD Q3H #10 ml Referrals: DES MCMAHAN MD [EMERITUS] - Follow up as needed VIVIANA CHAPMAN MD [ACTIVE STAFF] - Follow up tomorrow
[2019-01-03] MEDS ORDERED: KETOROLAC TROMETHAMINE 0.45% 4 DROP/0.4 ML DROPERETTE OD ONE (14:36)
--- NOTE | 2019-01-03 15:03 | ER Document Report ---
Entered by AURE ASH SCRIBE 01/03/19 [id number] Acting as scribe for:JAYDEN ALAS DO ED Medical Screen (RME) - General Chief Complaint: Eye Problem Stated Complaint: RIGHT EYE PAIN Time Seen by Provider: 01/03/19 12:16 Primary Care Provider: VIVIANA CHAPMAN MD [ACTIVE STAFF] - Follow up tomorrow DES MCMAHAN MD [EMERITUS] - Follow up as needed Notes: Patient is an 83 year old male presents to the emergency department complaining of right eye pain onset approximately 1 week ago. Relative states the patient presented to this sock drier 4 days ago and was given cipro drops for his eye. He states his right eye is still painful and hard to open. He denies any crusting or discharge. I have greeted and performed a rapid initial assessment of this patient. A comprehensive ED assessment and evaluation of the patient, analysis of test results and completion of the medical decision making process will be conducted by additional ED providers. GENERAL: Alert, interacts well, in wheelchair. No acute distress. HEAD: Normocephalic, Atraumatic. EYES: Marked conjunctival injection of right eye, slight ptsosis of the right upper lid, tearing, no crusting or discharge. EOMI. ENT: Oral mucosa moist, tongue midline. NECK: Full range of motion. Supple. Trachea midline. LUNGS: No respiratory distress. EXTREMITIES: Moves all four extremities spontaneously. PSYCH: Normal affect, normal mood. TRAVEL OUTSIDE OF THE [place] IN LAST 30 DAYS: No - Related Data Allergies/Adverse Reactions: No Known Allergies Allergy (Verified 01/03/19 12:10) Past Medical History - Social History Frequency of alcohol use: None Drug Abuse: None - Past Medical History Cardiac Medical History: Reports: Hx Atrial Fibrillation, Hx Congestive Heart Failure, Hx Coronary Artery Disease, Hx Hypercholesterolemia, Hx Hypertension Denies: Hx Heart Attack Pulmonary Medical History: Reports: Hx Bronchitis Denies: Hx Asthma, Hx COPD, Hx Pneumonia Neurological Medical History: Denies: Hx Cerebrovascular Accident, Hx Seizures Endocrine Medical History: Reports: Hx Diabetes Mellitus Type 2 Renal/ Medical History: Denies: Hx Peritoneal Dialysis GI Medical History: Reports: Hx Gastroesophageal Reflux Disease Musculoskeltal Medical History: Reports Hx Arthritis Skin Medical History: Denies Hx MRSA Psychiatric Medical History: Reports: Hx Depression Infectious Medical History: Past Surgical History: Reports: Hx Orthopedic Surgery, Hx Pacemaker - Immunizations Immunizations up to date: Yes Hx Diphtheria, Pertussis, Tetanus Vaccination: Yes - pt thinks last tetanus was less than 5 years ago Physical Exam - Vital signs Vitals: Temp Pulse Resp BP Pulse Ox 98.8 F 59 L 16 125/79 98 01/03/19 12:04 01/03/19 12:04 01/03/19 12:04 01/03/19 12:04 01/03/19 12:04 Course - Vital Signs Vital signs: Temp Pulse Resp BP Pulse Ox 98.8 F 59 L 16 125/79 98 01/03/19 12:04 01/03/19 12:04 01/03/19 12:04 01/03/19 12:04 01/03/19 12:04 Doctor's Discharge - Discharge Clinical Impression: Pain in right eye, Redness of right eye Condition: Stable Disposition: HOME, SELF-CARE Additional Instructions: You were seen today in the emergency department for right eye pain. You have been given pain eyedrops. Please take as directed. Please stop taking the eyedrops that were given to you and restart the new antibiotic drops that are prescribed to you. Please follow-up with the tip tester tomorrow in regards to this visit. If your symptoms get worse, you lose your eyesight, or have any symptoms that are worrisome to you, please return to the emergency department. Prescriptions: Ketorolac Tromethamine [Acular] 1 drop RT_EYE QIDP PRN #5 ml PRN Reason: Polymyxin B Sulf/Trimethoprim [Polytrim Eye Drops] 1 drop OD Q3H #10 ml Referrals: VIVIANA CHAPMAN MD [ACTIVE STAFF] - Follow up tomorrow DES MCMAHAN MD [EMERITUS] - Follow up as needed I personally performed the services described in the documentation, reviewed and edited the documentation which was dictated to the scribe in my presence, and it accurately records my words and actions.
[2019-01-03 15:49] VITALS: BP 143/78
== END 2019-01-03 15:30 | disposition home or self-care (01) ==
LOC: ER 11:36
DX: H57.11 Ocular pain, right eye (principal); I50.9 Heart failure, unspecified; E11.9 Type 2 diabetes mellitus without complications; I25.10 Atherosclerotic heart disease of native coronary artery without angina pectoris; I11.0 Hypertensive heart disease with heart failure
CPT/HCPCS: 99283; A9270; J3490

== ENCOUNTER → 2019-01-08 | Outpatient (CLI) | payer MEDICARE, OTHER ==
[2019-01-12 07:35] LABS: LYME DISEASE IGM AB <0.80 index (0.00-0.79)
[2019-01-13 09:20] LABS: HLA B 27 DISEASE ASSOCIATION Negative (.)
== END ==
LOC: OD 11:49
PROVIDERS: ATTEND Ophthalmology
DX: H20.9 Unspecified iridocyclitis (principal)
CPT/HCPCS: 36415; 82164; 86430; 86592; 86617; 86618; 86812

== ENCOUNTER → 2019-02-18 | Outpatient (CLI) | payer MEDICARE, OTHER ==
[2019-02-18 12:02] LABS: APPEARANCE,URINE CLEAR; BILIRUBIN,URINE NEGATIVE (NEGATIVE); COLOR,URINE STRAW; GLUCOSE, URINE >=500 mg/dL (NEGATIVE); KETONES,URINE NEGATIVE (NEGATIVE); LEUKOCYTE ESTERASE,URINE NEGATIVE (NEGATIVE); NITRITE,URINE NEGATIVE (NEGATIVE); PROTEIN,URINE NEGATIVE (NEGATIVE); URINE SPECIFIC GRAVITY 1.006; UROBILINOGEN,URINE NEGATIVE mg/dL (<2.0)
[2019-02-18 12:17] LABS: HEMATOCRIT 49.4 % (37.9-51.0); HEMOGLOBIN 17.3 g/dL (13.5-17.0); MEAN CORPUSCULAR VOLUME 91 fl (80-97); PLATELET COUNT 151 10^3/uL (150-450); RED CELL DISTRIBUTION WIDTH 16.6 % (11.5-14.0); WHITE BLOOD COUNT 6.7 10^3/uL (4.0-10.5)
[2019-02-18 12:45] LABS: ALANINE AMINOTRANSFERASE 40 U/L (21-72); ALBUMIN 4.2 g/dL (3.5-5.0); ALKALINE PHOSPHATASE 146 U/L (38-126); ANION GAP 12 (5-19); ASPARTATE AMINO TRANSFERASE 40 U/L (17-59); BILIRUBIN,DIRECT 0.4 mg/dL (0.0-0.4); BLOOD UREA NITROGEN 26 mg/dL (7-20); CALCIUM 9.9 mg/dL (8.4-10.2); CARBON DIOXIDE 27 mmol/L (22-30); CHLORIDE 96 mmol/L (98-107); GLUCOSE 364 mg/dL (75-110); POTASSIUM 4.1 mmol/L (3.6-5.0); SODIUM 135.2 mmol/L (137-145); TOTAL PROTEIN 7.8 g/dL (6.3-8.2)
== END ==
LOC: LAB 11:23
PROVIDERS: ATTEND Internal Medicine Cardiovascular Disease
DX: I50.22 Chronic systolic (congestive) heart failure (principal); I48.2 Chronic atrial fibrillation; Z79.01 Long term (current) use of anticoagulants; Z79.899 Other long term (current) drug therapy
CPT/HCPCS: 36415; 80048; 80076; 81001; 82272; 83880; 85027; 85730

== ENCOUNTER 2019-03-15 12:42 | Observation (INO) | payer MEDICARE, OTHER ==
[2019-03-15] MEDS ORDERED: ACETAMINOPHEN 325 MG TABLET PO PRN (13:02)
[2019-03-15] MEDS ORDERED: IPRATROPIUM/ALBUTEROL 0.5-2.5 MG/3 ML AMPUL NEB PRN (13:02)
[2019-03-15] MEDS ORDERED: GLUCAGON,HUMAN RECOMB 1 MG INJ IM PRN ×3 (13:07→16:15)
[2019-03-15] MEDS ORDERED: DEXTROSE 50%-WATER 25 GM/50 ML DISP.SYRIN IV PRN ×4 (13:07→16:15)
[2019-03-15] MEDS ORDERED: DEXTROSE 40% GEL 15 GM TUBE PO PRN ×5 (13:07→16:15)
--- NOTE | 2019-03-15 13:20 | PDOC H&P ---
History of Present Illness Admission Date/PCP: 03/15/19 12:42 DHEERAJ DENSON MD Patient complains of: Hyperglycemia History of Present Illness: DARLING NAVARRO is a 84 year old male This is a 84-year-old male with a significant history of coronary artery disease chronic lymphedema sick sinus syndrome status post pacemaker currently see her in the history of the type 2 diabetes with the last A1c was 6.4 with the chronic disability due to unable to move with the multiple hospital admissions have a home health draw the blood and patient's blood sugar was 420 and patient was brought to the office with the blood sugar was above 400 Patient's anion gap was all normal patient is currently denied any symptoms Recently it patient's liver enzyme was elevated and the patient's smoke and flame specialist Dr. larry check it again and according to the daughter Jc coming down Patient is denied any chest pain to than any shortness of the breath Patient is denied any fever no chills no urinary symptoms Patient with chronic lymphedema Patient is chronic and Eliquis due to the chronic A. fib Past Medical History Cardiac Medical History: Reports: Atrial Fibrillation, Congestive Heart Failure, Coronary Artery Disease, Hyperlipidema, Hypertension Denies: Myocardial Infarction Pulmonary Medical History: Reports: Bronchitis Denies: Asthma, Chronic Obstructive Pulmonary Disease (COPD), Pneumonia Neurological Medical History: Denies: Seizures Endocrine Medical History: Reports: Diabetes Mellitus Type 2 GI Medical History: Reports: Gastroesophageal Reflux Disease Musculoskeltal Medical History: Reports: Arthritis Psychiatric Medical History: Reports: Depression Hematology: Denies: Anemia Past Surgical History Past Surgical History: Reports: Orthopedic Surgery, Pacemaker Social History Information Source: Patient Smoking Status: Never Smoker Frequency of Alcohol Use: None Hx Recreational Drug Use: No Drugs: None Hx Prescription Drug Abuse: No Family History Family History: Reviewed & Not Pertinent Parental Family History Reviewed: Yes Children Family History Reviewed: Yes Sibling(s) Family History Reviewed.: Yes Medication/Allergy Home Medications: Diltiazem HCl [Cardizem Cd 120 mg Capsule] 120 mg PO DAILY 01/20/12 Digoxin [Lanoxin 0.125 mg Tablet] 0.125 mg PO DAILY 01/21/12 Aspirin [Adult Low Dose Aspirin EC] 81 mg PO DAILY 10/14/15 Allopurinol [Zyloprim] 300 mg PO DAILY 08/21/18 Furosemide [Lasix] 40 mg PO DAILY 08/21/18 Metoprolol Succinate 25 mg PO DAILY 08/21/18 Fish Oil/Dha/Epa [Fish Oil 1,200 mg Fish Oil] 1 cap PO DAILY 10/15/18 Cyclopentolate HCl [Cyclogyl 1% Drops] 1 drop OD BID 03/15/19 Ketorolac Tromethamine [Acular] 1 drop OD QIDP PRN 03/15/19 Allergies/Adverse Reactions: No Known Allergies Allergy (Verified 01/03/19 12:10) Review of Systems Constitutional: PRESENT: weakness. ABSENT: chills, fever(s), headache(s), weight gain, weight loss Eyes: ABSENT: visual disturbances Ears: ABSENT: hearing changes Cardiovascular: ABSENT: chest pain, dyspnea on exertion, edema, orthropnea, palpitations Respiratory: ABSENT: cough, hemoptysis Gastrointestinal: ABSENT: abdominal pain, constipation, diarrhea, hematemesis, hematochezia, nausea, vomiting Genitourinary: ABSENT: dysuria, hematuria Musculoskeletal: ABSENT: joint swelling Integumentary: ABSENT: rash, wounds Neurological: ABSENT: abnormal gait, abnormal speech, confusion, dizziness, foc al weakness, syncope Psychiatric: ABSENT: anxiety, depression, homidical ideation, suicidal ideation Endocrine: ABSENT: cold intolerance, heat intolerance, menstrual abnormalities, polydipsia, polyuria Hematologic/Lymphatic: ABSENT: easy bleeding, easy bruising, lymphadenopathy Physical Exam General appearance: PRESENT: no acute distress, well-developed, well-nourished Head exam: PRESENT: atraumatic, normocephalic Eye exam: PRESENT: conjunctiva pink, EOMI, PERRLA. ABSENT: scleral icterus Ear exam: PRESENT: normal external ear exam Mouth exam: PRESENT: moist, tongue midline Neck exam: PRESENT: full ROM. ABSENT: carotid bruit, JVD, lymphadenopathy, thyromegaly Respiratory exam: PRESENT: clear to auscultation celso Cardiovascular exam: PRESENT: RRR. ABSENT: diastolic murmur, rubs, systolic murmur Vascular exam: PRESENT: normal capillary refill GI/Abdominal exam: PRESENT: normal bowel sounds, soft. ABSENT: distended, guarding, mass, organolmegaly, rebound, tenderness Rectal exam: PRESENT: deferred Extremities exam: PRESENT: pedal edema Additional comments: Chronic discoloration of the both leg Neurological exam: PRESENT: alert, awake, oriented to person, oriented to place, oriented to time, oriented to situation, CN II-XII grossly intact. ABSENT: motor sensory deficit Psychiatric exam: PRESENT: appropriate affect, normal mood. ABSENT: homicidal ideation, suicidal ideation Skin exam: PRESENT: dry, intact, warm. ABSENT: cyanosis, rash Assessment & Plan - Diagnosis (1) Hyperglycemia due to type 2 diabetes mellitus Qualifiers: Diabetes mellitus group home insulin use: without intermodal dispatcher use Qualified Code(s): E11.65 - Type 2 diabetes mellitus with hyperglycemia Is this a current diagnosis for this admission?: Yes Plan: We will start the patient on sliding scale's Check the urine No sign of any infections (2) Abnormal LFTs Is this a current diagnosis for this admission?: Yes Plan: We will get the ultrasound for the abdomen (3) Thrombocytopenia Is this a current diagnosis for this admission?: Yes Plan: Patient seen by the analyst in the past but no sign of any CML and no sign of any malignancy most likely due to the platelet clumping (4) Atrial fibrillation Qualifiers: Atrial fibrillation type: chronic Qualified Code(s): I48.2 - Chronic atrial fibrillation Is this a current diagnosis for this admission?: Yes Plan: Continues to Eliquis (5) Cardiomyopathy Qualifiers: Cardiomyopathy type: unspecified Qualified Code(s): I42.9 - Cardiomyopathy, unspecified Is this a current diagnosis for this admission?: Yes Plan: Continues to Lasix (6) Hyperlipidemia Qualifiers: Hyperlipidemia type: unspecified Qualified Code(s): E78.5 - Hyperlipidemia, unspecified Is this a current diagnosis for this admission?: Yes Plan: Unable to take any statin due to the rhabdomyolysis (7) Hypertension Qualifiers: Hypertension type: essential hypertension Qualified Code(s): I10 - Essential (primary) hypertension Is this a current diagnosis for this admission?: Yes Plan: Mr. current medications (8) Impaired ambulation Is this a current diagnosis for this admission?: Yes Plan: Physical therapy evaluations (9) Lymphedema Is this a current diagnosis for this admission?: Yes Plan: Elevate the legs on the Lasix (10) Weakness Is this a current diagnosis for this admission?: Yes Plan: Physical therapy evaluations - Time Time Spent: 30 to 50 Minutes Medications reviewed and adjusted accordingly: Yes Anticipated discharge: SNF Within: Other - Inpatient Certification Based on my medical assessment, after consideration of the patient's comorbidities, presenting symptoms, or acuity I expect that the services needed warrant INPATIENT care.: Yes I certify that my determination is in accordance with my understanding of Medicare's requirements for reasonable and necessary INPATIENT services [42 CFR 412.3e].: Yes Medical Necessity: Need Close Monitoring Due to Risk of Patient Decompensation Post Hospital Care: D/C Dovetail Machine Operator Documentation - Plan Summary Plan Summary: Discussed with the patient and the daughter in law Admit the patient in the hospital for further evaluation due to l multiple comorbidity
[2019-03-15] MEDS ORDERED: INSULIN LISPRO 100 UNIT/ML 3 ML VIAL ONE (13:48)
[2019-03-15] MEDS ORDERED: DEXTROSE 50%-WATER SYRINGE 25 GM/50 ML DOSE IV PRN (14:30)
[2019-03-15] MEDS ORDERED: DEXTROSE 40% GEL 15 GM TUBE X 2 PO PRN (14:30)
[2019-03-15] MEDS ORDERED: DEXTROSE 50%-WATER SYRINGE 12.5 GM/25 ML DOSE IV PRN (14:30)
[2019-03-15 15:46] LABS: ALANINE AMINOTRANSFERASE 63 U/L (21-72); ALBUMIN 3.8 g/dL (3.5-5.0); ALKALINE PHOSPHATASE 176 U/L (38-126); ANION GAP 15 (5-19); ASPARTATE AMINO TRANSFERASE 46 U/L (17-59); BILIRUBIN,DIRECT 0.2 mg/dL (0.0-0.4); BILIRUBIN,TOTAL 0.7 mg/dL (0.2-1.3); BLOOD UREA NITROGEN 33 mg/dL (7-20); CALCIUM 9.4 mg/dL (8.4-10.2); CARBON DIOXIDE 26 mmol/L (22-30); CHLORIDE 90 mmol/L (98-107); DIGOXIN 1.17 ng/mL (0.8-2.0); SODIUM 131.4 mmol/L (137-145); TOTAL PROTEIN 7.2 g/dL (6.3-8.2)
[2019-03-15 15:52] LABS: GLUCOSE 581 mg/dL (75-110)
[2019-03-15] MEDS ORDERED: INSULIN LISPRO 100 UNIT/ML 3 ML VIAL SUBCUT SCH (16:00)
[2019-03-15] MEDS: INSULIN LISPRO 100 UNIT/ML 3 ML VIAL SUBCUT SCH ×2 (16:34→22:35)
[2019-03-15] MEDS: DOCUSATE SODIUM 100 MG CAPSULE PO SCH (17:05)
[2019-03-15] MEDS: APIXABAN 5 MG TABLET PO SCH (17:05)
--- NOTE | 2019-03-15 19:25 | EKG REPORT ---
SEVERITY:- ABNORMAL ECG - VENTRICULAR-PACED COMPLEXES : Confirmed by: Jocy Mims 15-Mar-2019 19:24:24
[2019-03-15] MEDS ORDERED: INSULIN GLARGINE,HUM.REC.ANLOG 1,000 UNIT/10 ML VIAL SUBCUT SCH (22:00)
[2019-03-16 04:42] LABS: ABSOLUTE EOSINOPHILS # (AUTO) 0.3 10^3/uL (0.0-0.6); ABSOLUTE LYMPHOCYTES (AUTO) 2.2 10^3/uL (0.5-4.7); ABSOLUTE MONOCYTES (AUTO) 0.5 10^3/uL (0.1-1.4); ABSOLUTE NEUT (AUTO) 3.6 10^3/uL (1.7-8.2); BASOPHILS % (AUTO) 0.6 % (0-2); EOSINOPHILS % (AUTO) 4.2 % (0-6); HEMATOCRIT 48.3 % (37.9-51.0); HEMOGLOBIN 16.4 g/dL (13.5-17.0); MEAN CORPUSCULAR HEMOGLOBIN 31.5 pg (27.0-33.4); MEAN CORPUSCULAR VOLUME 93 fl (80-97); PLATELET COUNT 121 10^3/uL (150-450); RED BLOOD COUNT 5.22 10^6/uL (4.35-5.55); RED CELL DISTRIBUTION WIDTH 16.1 % (11.5-14.0); SEGMENTED NEUTROPHILS % (AUTO) 55.2 % (42-78); TOTAL CELLS COUNTED % (AUTO) 100 %; WHITE BLOOD COUNT 6.6 10^3/uL (4.0-10.5)
[2019-03-16 05:08] LABS: ALANINE AMINOTRANSFERASE 56 U/L (21-72); ALBUMIN 3.8 g/dL (3.5-5.0); ALKALINE PHOSPHATASE 148 U/L (38-126); ANION GAP 14 (5-19); ASPARTATE AMINO TRANSFERASE 44 U/L (17-59); BILIRUBIN,DIRECT 0.2 mg/dL (0.0-0.4); BILIRUBIN,TOTAL 0.8 mg/dL (0.2-1.3); BLOOD UREA NITROGEN 29 mg/dL (7-20); CALCIUM 9.6 mg/dL (8.4-10.2); CARBON DIOXIDE 28 mmol/L (22-30); CHLORIDE 97 mmol/L (98-107); GLUCOSE 194 mg/dL (75-110); POTASSIUM 4.1 mmol/L (3.6-5.0); TOTAL PROTEIN 6.7 g/dL (6.3-8.2)
--- NOTE | 2019-03-16 06:05 | RADIOLOGY REPORT (SQ) ---
EXAM DESCRIPTION: US ABDOMEN COMPLETED DATE/TME: 03/16/2019 00:00 CLINICAL HISTORY: 84 years, Male, abnormal lft COMPARISON: None. TECHNIQUE: Complete transabdominal ultrasound LIMITATIONS: None. FINDINGS: Echogenic appearance to the liver consistent with fatty infiltrative change. The pancreas is not well seen due to bowel gas. Spleen is unremarkable at 8 cm. Negative sonographic Nair sign. No discrete gallstones. Layering sludge in the gallbladder lumen. No gallbladder wall thickening. CBD measures 2.3 mm. Visualized abdominal aorta, inferior vena cava, unremarkable. Simple appearing right renal cyst measuring 3 x 3 x 3 cm. Kidneys are otherwise unremarkable bilaterally. There is no ascites. IMPRESSION: Fatty infiltrative change to the liver. Sludge in the gallbladder lumen. Simple appearing right renal cyst. copyright 2010 [email or web address]- All Rights Reserved
[2019-03-16] MEDS: INSULIN LISPRO 100 UNIT/ML 3 ML VIAL SUBCUT SCH ×4 (07:50→21:25)
[2019-03-16] MEDS: OMEGA-3 ACID ETHYL ESTERS 1 GM CAPSULE PO SCH (07:50)
--- NOTE | 2019-03-16 08:54 | PDOC PROGRESS REPORT ---
Subjective Progress Note for:: 03/16/19 Subjective:: Patient is currently doing well Patient's blood sugar is coming down to 200 range Patient A1c is 13.1 No chest pain no short of breath Reason For Visit: HYPERGLYCEMIA Physical Exam Vital Signs: Temp Pulse Resp BP Pulse Ox 97.7 F 60 21 H 118/56 L 95 03/16/19 08:39 03/16/19 08:39 03/16/19 08:39 03/16/19 08:39 03/16/19 08:39 Intake & Output 03/15/19 03/16/19 03/17/19 06:59 06:59 06:59 Intake Total 550 Output Total 450 Balance 100 Weight 90.1 kg General appearance: PRESENT: no acute distress, well-developed, well-nourished Head exam: PRESENT: atraumatic, normocephalic Eye exam: PRESENT: conjunctiva pink, EOMI, PERRLA. ABSENT: scleral icterus Ear exam: PRESENT: normal external ear exam Mouth exam: PRESENT: moist, tongue midline Neck exam: PRESENT: full ROM. ABSENT: carotid bruit, JVD, lymphadenopathy, thyromegaly Respiratory exam: PRESENT: clear to auscultation celso Cardiovascular exam: PRESENT: RRR. ABSENT: diastolic murmur, rubs, systolic murmur Vascular exam: PRESENT: normal capillary refill GI/Abdominal exam: PRESENT: normal bowel sounds, soft. ABSENT: distended, guarding, mass, organolmegaly, rebound, tenderness Rectal exam: PRESENT: deferred Extremities exam: PRESENT: pedal edema Neurological exam: PRESENT: alert, awake, oriented to person, oriented to place, oriented to time, oriented to situation, CN II-XII grossly intact. ABSENT: motor sensory deficit Psychiatric exam: PRESENT: appropriate affect, normal mood. ABSENT: homicidal ideation, suicidal ideation Skin exam: PRESENT: dry, intact, warm. ABSENT: cyanosis, rash Results Laboratory Results: 03/16/19 03:53 03/16/19 03:53 03/15/19 03/16/19 03/16/19 15:00 03:53 03:53 WBC 6.6 RBC 5.22 Hgb 16.4 Hct 48.3 MCV 93 MCH 31.5 MCHC 34.0 RDW 16.1 H Plt Count 121 L Seg Neutrophils % 55.2 Lymphocytes % 33.0 Monocytes % 7.0 Eosinophils % 4.2 Basophils % 0.6 Absolute Neutrophils 3.6 Absolute Lymphocytes 2.2 Absolute Monocytes 0.5 Absolute Eosinophils 0.3 Absolute Basophils 0.0 Sodium 131.4 L 139.0 Potassium 5.0 4.1 Chloride 90 L 97 L Carbon Dioxide 26 28 Anion Gap 15 14 BUN 33 H 29 H Creatinine 1.05 0.90 Est GFR ( Amer) > 60 > 60 Est GFR (Non-Af Amer) > 60 > 60 Glucose 581 H* 194 H Calcium 9.4 9.6 Magnesium 2.1 Total Bilirubin 0.7 0.8 AST 46 44 ALT 63 56 Alkaline Phosphatase 176 H 148 H Total Protein 7.2 6.7 Albumin 3.8 3.8 03/16/19 03:53 NT-Pro-B Natriuret Pep 325 Impressions: Abdomen Ultrasound 03/16/19 00:00 IMPRESSION: Fatty infiltrative change to the liver. Sludge in the gallbladder lumen. Simple appearing right renal cyst. copyright 2010 [employer]- All Rights Reserved Assessment & Plan - Diagnosis (1) Hyperglycemia due to type 2 diabetes mellitus Qualifiers: Diabetes mellitus mcfp insulin use: without mcfp use Qualified Code(s): E11.65 - Type 2 diabetes mellitus with hyperglycemia Is this a current diagnosis for this admission?: Yes Plan: Continues to Lantus and sliding scale Adjust the Lantus dose Get the diabetic education's (2) Abnormal LFTs Is this a current diagnosis for this admission?: Yes Plan: Since ultrasounds of the abdomen is stable (3) Thrombocytopenia Is this a current diagnosis for this admission?: Yes Plan: Patient seen by the plastic process technician in the past but no sign of any CML and no sign of any malignancy most likely due to the platelet clumping (4) Atrial fibrillation Qualifiers: Atrial fibrillation type: chronic Qualified Code(s): I48.2 - Chronic atrial fibrillation Is this a current diagnosis for this admission?: Yes Plan: Continues to Eliquis (5) Cardiomyopathy Qualifiers: Cardiomyopathy type: unspecified Qualified Code(s): I42.9 - Cardiomyopathy, unspecified Is this a current diagnosis for this admission?: Yes Plan: Continues to Lasix (6) Hyperlipidemia Qualifiers: Hyperlipidemia type: unspecified Qualified Code(s): E78.5 - Hyperlipidemia, unspecified Is this a current diagnosis for this admission?: Yes Plan: Unable to take any statin due to the rhabdomyolysis (7) Hypertension Qualifiers: Hypertension type: essential hypertension Qualified Code(s): I10 - Essential (primary) hypertension Is this a current diagnosis for this admission?: Yes Plan: current medications (8) Impaired ambulation Is this a current diagnosis for this admission?: Yes Plan: Physical therapy evaluations (9) Lymphedema Is this a current diagnosis for this admission?: Yes Plan: Elevate the legs on the Lasix (10) Weakness Is this a current diagnosis for this admission?: Yes Plan: Physical therapy evaluations - Time Time Spent with patient: 15-24 minutes Medications reviewed and adjusted accordingly: Yes Anticipated discharge: SNF Within: within 24 hours - Plan Summary Plan Summary: Plan to send to the rehab facility
[2019-03-16] MEDS: ASPIRIN 81 MG TABLET, ENT COATED PO SCH (09:35)
[2019-03-16] MEDS: FUROSEMIDE 40 MG TABLET PO SCH (09:35)
[2019-03-16] MEDS: DOCUSATE SODIUM 100 MG CAPSULE PO SCH ×2 (09:35→17:17)
[2019-03-16] MEDS: DIGOXIN 0.125 MG TABLET PO SCH (09:36)
[2019-03-16] MEDS: DILTIAZEM HCL 120 MG CAP.SR.24H PO SCH (09:36)
[2019-03-16] MEDS: ALLOPURINOL 300 MG TABLET PO SCH (09:36)
[2019-03-16] MEDS: APIXABAN 5 MG TABLET PO SCH ×2 (09:36→17:17)
[2019-03-16] MEDS: METOPROLOL SUCCINATE 25 MG TAB.SR.24H PO SCH (09:36)
[2019-03-16] MEDS ORDERED: DHA PO SCH (10:00)
[2019-03-16] MEDS ORDERED: EPA PO SCH (10:00)
[2019-03-16] MEDS ORDERED: FISH OIL PO SCH (10:00)
[2019-03-16] MEDS ORDERED: DILTIAZEM HCL 120 MG CAP.SR.24H PO SCH (10:00)
[2019-03-16] MEDS ORDERED: FUROSEMIDE INJ/PF 40 MG/4 ML SDV IV SCH (10:00)
[2019-03-16] MEDS ORDERED: INSULIN GLARGINE,HUM.REC.ANLOG 1,000 UNIT/10 ML VIAL SUBCUT SCH (22:00)
[2019-03-17 06:58] LABS: ABSOLUTE EOSINOPHILS # (AUTO) 0.2 10^3/uL (0.0-0.6); ABSOLUTE LYMPHOCYTES (AUTO) 2.2 10^3/uL (0.5-4.7); ABSOLUTE MONOCYTES (AUTO) 0.5 10^3/uL (0.1-1.4); ABSOLUTE NEUT (AUTO) 3.9 10^3/uL (1.7-8.2); BASOPHILS % (AUTO) 0.7 % (0-2); HEMATOCRIT 49.3 % (37.9-51.0); HEMOGLOBIN 16.7 g/dL (13.5-17.0); MEAN CORPUSCULAR HEMOGLOBIN 31.2 pg (27.0-33.4); MEAN CORPUSCULAR VOLUME 92 fl (80-97); MONOCYTES % (AUTO) 7.6 % (3-13); PLATELET COUNT 132 10^3/uL (150-450); RED BLOOD COUNT 5.37 10^6/uL (4.35-5.55); RED CELL DISTRIBUTION WIDTH 15.8 % (11.5-14.0); SEGMENTED NEUTROPHILS % (AUTO) 56.7 % (42-78); TOTAL CELLS COUNTED % (AUTO) 100 %; WHITE BLOOD COUNT 6.9 10^3/uL (4.0-10.5)
[2019-03-17 07:20] LABS: ANION GAP 13 (5-19); BLOOD UREA NITROGEN 24 mg/dL (7-20); CALCIUM 9.2 mg/dL (8.4-10.2); CARBON DIOXIDE 27 mmol/L (22-30); CHLORIDE 98 mmol/L (98-107); GLUCOSE 239 mg/dL (75-110); POTASSIUM 4.1 mmol/L (3.6-5.0); SODIUM 137.6 mmol/L (137-145)
[2019-03-17] MEDS: INSULIN LISPRO 100 UNIT/ML 3 ML VIAL SUBCUT SCH ×4 (07:36→21:17)
[2019-03-17] MEDS: OMEGA-3 ACID ETHYL ESTERS 1 GM CAPSULE PO SCH (07:37)
--- NOTE | 2019-03-17 09:21 | PDOC PROGRESS REPORT ---
Subjective Progress Note for:: 03/17/19 Subjective:: Patient is currently doing well Denied any chest pain to than any shortness of the breath Patient's blood sugar is coming down Reason For Visit: HYPERGLYCEMIA Physical Exam Vital Signs: Temp Pulse Resp BP Pulse Ox 97.2 F 60 17 126/63 H 97 03/16/19 23:41 03/17/19 02:00 03/16/19 23:41 03/16/19 23:41 03/16/19 23:41 Intake & Output 03/16/19 03/17/19 03/18/19 06:59 06:59 06:59 Intake Total 550 1284 Output Total 450 1050 Balance 100 234 Weight 90.1 kg 93.8 kg General appearance: PRESENT: no acute distress, well-developed, well-nourished Head exam: PRESENT: atraumatic, normocephalic Eye exam: PRESENT: conjunctiva pink, EOMI, PERRLA. ABSENT: scleral icterus Ear exam: PRESENT: normal external ear exam Mouth exam: PRESENT: moist, tongue midline Neck exam: PRESENT: full ROM. ABSENT: carotid bruit, JVD, lymphadenopathy, thyromegaly Respiratory exam: PRESENT: clear to auscultation celso Cardiovascular exam: PRESENT: RRR. ABSENT: diastolic murmur, rubs, systolic murmur Vascular exam: PRESENT: normal capillary refill GI/Abdominal exam: PRESENT: normal bowel sounds, soft. ABSENT: distended, guarding, mass, organolmegaly, rebound, tenderness Rectal exam: PRESENT: deferred Extremities exam: PRESENT: pedal edema Neurological exam: PRESENT: alert, awake, oriented to person, oriented to place, oriented to time, oriented to situation, CN II-XII grossly intact. ABSENT: motor sensory deficit Psychiatric exam: PRESENT: appropriate affect, normal mood. ABSENT: homicidal ideation, suicidal ideation Skin exam: PRESENT: dry, intact, warm. ABSENT: cyanosis, rash Results Laboratory Results: 03/17/19 06:23 03/17/19 06:23 03/17/19 03/17/19 06:23 06:23 WBC 6.9 RBC 5.37 Hgb 16.7 Hct 49.3 MCV 92 MCH 31.2 MCHC 34.0 RDW 15.8 H Plt Count 132 L Seg Neutrophils % 56.7 Lymphocytes % 32.0 Monocytes % 7.6 Eosinophils % 3.0 Basophils % 0.7 Absolute Neutrophils 3.9 Absolute Lymphocytes 2.2 Absolute Monocytes 0.5 Absolute Eosinophils 0.2 Absolute Basophils 0.0 Sodium 137.6 Potassium 4.1 Chloride 98 Carbon Dioxide 27 Anion Gap 13 BUN 24 H Creatinine 0.91 Est GFR ( Amer) > 60 Est GFR (Non-Af Amer) > 60 Glucose 239 H Calcium 9.2 03/15/19 15:30 Clean Catch Midstream Urine Culture - Final Mixed Urogenital Ally 03/16/19 03:53 NT-Pro-B Natriuret Pep 325 Impressions: Abdomen Ultrasound 03/16/19 00:00 IMPRESSION: Fatty infiltrative change to the liver. Sludge in the gallbladder lumen. Simple appearing right renal cyst. copyright 2010 [employer]- All Rights Reserved Assessment & Plan - Diagnosis (1) Hyperglycemia due to type 2 diabetes mellitus Qualifiers: Diabetes mellitus half-way insulin use: without half-way use Qualified Code(s): E11.65 - Type 2 diabetes mellitus with hyperglycemia Is this a current diagnosis for this admission?: Yes Plan: Increase the Lantus 15 units at night At the Januvia 50 mg twice a day (2) Abnormal LFTs Is this a current diagnosis for this admission?: Yes Plan: Since ultrasounds of the abdomen is stable (3) Thrombocytopenia Is this a current diagnosis for this admission?: Yes Plan: Patient seen by the mainframe software developer in the past but no sign of any CML and no sign of any malignancy most likely due to the platelet clumping (4) Atrial fibrillation Qualifiers: Atrial fibrillation type: chronic Qualified Code(s): I48.2 - Chronic atrial fibrillation Is this a current diagnosis for this admission?: Yes Plan: Continues to [place] (5) Cardiomyopathy Qualifiers: Cardiomyopathy type: unspecified Qualified Code(s): I42.9 - Cardiomyopathy, unspecified Is this a current diagnosis for this admission?: Yes Plan: Continues to Lasix (6) Hyperlipidemia Qualifiers: Hyperlipidemia type: unspecified Qualified Code(s): E78.5 - Hyperlipidemia, unspecified Is this a current diagnosis for this admission?: Yes Plan: Unable to take any statin due to the rhabdomyolysis (7) Hypertension Qualifiers: Hypertension type: essential hypertension Qualified Code(s): I10 - Es sential (primary) hypertension Is this a current diagnosis for this admission?: Yes Plan: Mr. current medications (8) Impaired ambulation Is this a current diagnosis for this admission?: Yes Plan: Physical therapy evaluations (9) Lymphedema Is this a current diagnosis for this admission?: Yes Plan: Elevate the legs on the Lasix (10) Weakness Is this a current diagnosis for this admission?: Yes Plan: Physical therapy evaluations - Time Time Spent with patient: 15-24 minutes Medications reviewed and adjusted accordingly: Yes Anticipated discharge: SNF Within: within 24 hours - Plan Summary Plan Summary: Adjust the insulin Plan to discharge to the rehab facility
[2019-03-17] MEDS: APIXABAN 5 MG TABLET PO SCH ×2 (10:26→17:25)
[2019-03-17] MEDS: FUROSEMIDE 40 MG TABLET PO SCH (10:26)
[2019-03-17] MEDS: ASPIRIN 81 MG TABLET, ENT COATED PO SCH (10:26)
[2019-03-17] MEDS: DILTIAZEM HCL 120 MG CAP.SR.24H PO SCH (10:26)
[2019-03-17] MEDS: METOPROLOL SUCCINATE 25 MG TAB.SR.24H PO SCH (10:26)
[2019-03-17] MEDS: DOCUSATE SODIUM 100 MG CAPSULE PO SCH ×2 (10:26→17:25)
[2019-03-17] MEDS: ALLOPURINOL 300 MG TABLET PO SCH (10:26)
[2019-03-17] MEDS: DIGOXIN 0.125 MG TABLET PO SCH (10:27)
[2019-03-17] MEDS: SITAGLIPTIN PHOSPHATE 50 MG TABLET PO SCH (17:26)
[2019-03-17] MEDS: INSULIN GLARGINE,HUM.REC.ANLOG 1,000 UNIT/10 ML VIAL SUBCUT SCH (21:16)
[2019-03-18] MEDS ORDERED: POLYETHYLENE GLYCOL 3350 POWDER 17 GM/1 PACKET PO PRN (06:30)
[2019-03-18 06:50] LABS: ABSOLUTE BASOPHILS # (AUTO) 0.1 10^3/uL (0.0-0.2); ABSOLUTE EOSINOPHILS # (AUTO) 0.3 10^3/uL (0.0-0.6); ABSOLUTE LYMPHOCYTES (AUTO) 2.1 10^3/uL (0.5-4.7); ABSOLUTE MONOCYTES (AUTO) 0.5 10^3/uL (0.1-1.4); ABSOLUTE NEUT (AUTO) 4.6 10^3/uL (1.7-8.2); BASOPHILS % (AUTO) 1.1 % (0-2); EOSINOPHILS % (AUTO) 3.5 % (0-6); HEMATOCRIT 48.1 % (37.9-51.0); HEMOGLOBIN 16.5 g/dL (13.5-17.0); LYMPHOCYTES % (AUTO) 27.7 % (13-45); MEAN CORPUSCULAR HEMOGLOBIN 31.6 pg (27.0-33.4); MEAN CORPUSCULAR HGB CONC 34.2 g/dL (32.0-36.0); MEAN CORPUSCULAR VOLUME 92 fl (80-97); MONOCYTES % (AUTO) 6.9 % (3-13); PLATELET COUNT 116 10^3/uL (150-450); RED BLOOD COUNT 5.22 10^6/uL (4.35-5.55); SEGMENTED NEUTROPHILS % (AUTO) 60.8 % (42-78); TOTAL CELLS COUNTED % (AUTO) 100 %; WHITE BLOOD COUNT 7.5 10^3/uL (4.0-10.5)
[2019-03-18 07:29] LABS: ANION GAP 12 (5-19); BLOOD UREA NITROGEN 28 mg/dL (7-20); CALCIUM 9.3 mg/dL (8.4-10.2); CARBON DIOXIDE 28 mmol/L (22-30); CHLORIDE 100 mmol/L (98-107); GLUCOSE 183 mg/dL (75-110); POTASSIUM 4.3 mmol/L (3.6-5.0); SODIUM 140.4 mmol/L (137-145)
--- NOTE | 2019-03-18 08:36 | PDOC PROGRESS REPORT ---
Subjective Progress Note for:: 03/18/19 Subjective:: Patient is currently doing well Patient of issue with some constipation's and a hard stools Patient other than denied any abdominal pain no nausea no vomiting Patient's blood sugar is coming down Reason For Visit: HYPERGLYCEMIA Physical Exam Vital Signs: Temp Pulse Resp BP Pulse Ox 98.2 F 62 19 101/50 L 94 03/17/19 23:24 03/18/19 02:00 03/17/19 23:24 03/17/19 23:24 03/17/19 23:24 Intake & Output 03/17/19 03/18/19 03/19/19 06:59 06:59 06:59 Intake Total 1284 1900 Output Total 1050 2025 Balance 234 -125 Weight 93.8 kg 95.9 kg General appearance: PRESENT: no acute distress, well-developed, well-nourished Head exam: PRESENT: atraumatic, normocephalic Eye exam: PRESENT: conjunctiva pink, EOMI, PERRLA. ABSENT: scleral icterus Ear exam: PRESENT: normal external ear exam Mouth exam: PRESENT: moist, tongue midline Neck exam: PRESENT: full ROM. ABSENT: carotid bruit, JVD, lymphadenopathy, thyromegaly Respiratory exam: PRESENT: clear to auscultation celso Cardiovascular exam: PRESENT: RRR. ABSENT: diastolic murmur, rubs, systolic murmur Vascular exam: PRESENT: normal capillary refill GI/Abdominal exam: PRESENT: normal bowel sounds, soft. ABSENT: distended, guarding, mass, organolmegaly, rebound, tenderness Rectal exam: PRESENT: deferred Extremities exam: PRESENT: pedal edema Neurological exam: PRESENT: alert, awake, oriented to person, oriented to place, oriented to time, oriented to situation, CN II-XII grossly intact. ABSENT: motor sensory deficit Psychiatric exam: PRESENT: appropriate affect, normal mood. ABSENT: homicidal ideation, suicidal ideation Skin exam: PRESENT: dry, intact, warm. ABSENT: cyanosis, rash Results Laboratory Results: 03/18/19 05:35 03/18/19 05:35 03/18/19 03/18/19 05:35 05:35 WBC 7.5 RBC 5.22 Hgb 16.5 Hct 48.1 MCV 92 MCH 31.6 MCHC 34.2 RDW 16.0 H Plt Count 116 L Seg Neutrophils % 60.8 Lymphocytes % 27.7 Monocytes % 6.9 Eosinophils % 3.5 Basophils % 1.1 Absolute Neutrophils 4.6 Absolute Lymphocytes 2.1 Absolute Monocytes 0.5 Absolute Eosinophils 0.3 Absolute Basophils 0.1 Sodium 140.4 Potassium 4.3 Chloride 100 Carbon Dioxide 28 Anion Gap 12 BUN 28 H Creatinine 1.12 Est GFR ( Amer) > 60 Est GFR (Non-Af Amer) > 60 Glucose 183 H Calcium 9.3 03/16/19 03:53 NT-Pro-B Natriuret Pep 325 Impressions: Abdomen Ultrasound 03/16/19 00:00 IMPRESSION: Fatty infiltrative change to the liver. Sludge in the gallbladder lumen. Simple appearing right renal cyst. copyright 2010 [employer]- All Rights Reserved Assessment & Plan - Diagnosis (1) Hyperglycemia due to type 2 diabetes mellitus Qualifiers: Diabetes mellitus fdc insulin use: without terminologist use Qualified Code(s): E11.65 - Type 2 diabetes mellitus with hyperglycemia Is this a current diagnosis for this admission?: Yes Plan: Increase the Lantus 15 units at night At the Januvia 50 mg twice a day (2) Abnormal LFTs Is this a current diagnosis for this admission?: Yes Plan: Since ultrasounds of the abdomen is stable (3) Thrombocytopenia Is this a current diagnosis for this admission?: Yes Plan: Patient seen by the manufacturing engineer automotive in the past but no sign of any CML and no sign of any malignancy most likely due to the platelet clumping (4) Atrial fibrillation Qualifiers: Atrial fibrillation type: chronic Qualified Code(s): I48.2 - Chronic atrial fibrillation Is this a current diagnosis for this admission?: Yes Plan: Continues to [place] (5) Cardiomyopathy Qualifiers: Cardiomyopathy type: unspecified Qualified Code(s): I42.9 - Cardiomyopathy, unspecified Is this a current diagnosis for this admission?: Yes Plan: Continues to Lasjeni (6) Hyperlipidemia Qualifiers: Hyperlipidemia type: unspecified Qualified Code(s): E78.5 - Hyperlipidemia, unspecified Is this a current diagnosis for this admission?: Yes Plan: Unable to take any statin due to the rhabdomyolysis (7) Hypertension Qualifiers: Hypertension type: essential hypertension Qualified Code(s): I10 - Essential (primary) hypertension Is this a current diagnosis for this admission?: Yes Plan: Mr. current medications (8) Impaired ambulation Is this a current diagnosis for this admission?: Yes Plan: Physical therapy evaluations (9) Lymphedema Is this a current diagnosis for this admission?: Yes Plan: Elevate the legs on the Lasix (10) Weakness Is this a current diagnosis for this admission?: Yes - Time Time Spent with patient: 15-24 minutes Medications reviewed and adjusted accordingly: Yes Anticipated discharge: Other Within: Other - Plan Summary Plan Summary: Discussed with the nurses to get the stool for the guaiac and the Colace and MiraLAX
[2019-03-18] MEDS: INSULIN LISPRO 100 UNIT/ML 3 ML VIAL SUBCUT SCH ×4 (10:23→21:47)
[2019-03-18] MEDS: OMEGA-3 ACID ETHYL ESTERS 1 GM CAPSULE PO SCH (10:24)
[2019-03-18] MEDS: SITAGLIPTIN PHOSPHATE 50 MG TABLET PO SCH ×2 (10:24→16:55)
[2019-03-18] MEDS: ALLOPURINOL 300 MG TABLET PO SCH (10:24)
[2019-03-18] MEDS: DIGOXIN 0.125 MG TABLET PO SCH (10:24)
[2019-03-18] MEDS: ASPIRIN 81 MG TABLET, ENT COATED PO SCH (10:25)
[2019-03-18] MEDS: METOPROLOL SUCCINATE 25 MG TAB.SR.24H PO SCH (10:25)
[2019-03-18] MEDS: APIXABAN 5 MG TABLET PO SCH (10:25)
[2019-03-18] MEDS: DOCUSATE SODIUM 100 MG CAPSULE PO SCH ×2 (10:26→18:11)
[2019-03-18] MEDS: DILTIAZEM HCL 120 MG CAP.SR.24H PO SCH (10:26)
[2019-03-18] MEDS: FUROSEMIDE 40 MG TABLET PO SCH (10:26)
[2019-03-18] MEDS ORDERED: TUBERCULIN,PURIF.PROT.DERIV. 5 TU/0.1 ML TEST 1 ML VIAL ID ONE (12:30)
--- NOTE | 2019-03-18 14:21 | PDOC CONSULTATION ---
Consultation Consult Date: 03/18/19 Attending physician:: JUVENCIO LEON Consult reason:: Heme positive stools History of Present Illness Admission Date/PCP: 03/15/19 12:42 DHEERAJ CARABALLO MD History of Present Illness: DARLING NAVARRO is a 84 year old male asked to see this patient by Dr Caraballo noted to have heme positive stools however is on Eliquis patient seen in the past in 2014 , had EGD done and noted to have nodular gastritis in 2011 , had colonoscopy done that showed some diverticulosis and some polyps were removed due to ongoing medical problems, has not had a surveillance colonoscopy now with heme positive stools Hgb is however stable no active bleeding is noted recommendations requested to further GI work up Past Medical History Cardiac Medical History: Reports: Atrial Fibrillation, Congestive Heart Failure, Coronary Artery Disease, Hyperlipidema, Hypertension Denies: Myocardial Infarction Pulmonary Medical History: Reports: Bronchitis Denies: Asthma, Chronic Obstructive Pulmonary Disease (COPD), Pneumonia Neurological Medical History: Denies: Seizures Endocrine Medical History: Reports: Diabetes Mellitus Type 2 GI Medical History: Reports: Gastroesophageal Reflux Disease Musculoskeltal Medical History: Reports: Arthritis Psychiatric Medical History: Reports: Depression Hematology: Denies: Anemia Past Surgical History Past Surgical History: Reports: Orthopedic Surgery, Pacemaker Social History Smoking Status: Never Smoker Frequency of Alcohol Use: None Hx Recreational Drug Use: No Drugs: None Hx Prescription Drug Abuse: No Family History Family History: Reviewed & Not Pertinent Parental Family History Reviewed: Yes Children Family History Reviewed: Unknown Sibling(s) Family History Reviewed.: Unknown Medication/Allergy Home Medications: Diltiazem HCl [Cardizem Cd 120 mg Capsule] 120 mg PO DAILY 01/20/12 Digoxin [Lanoxin 0.125 mg Tablet] 0.125 mg PO DAILY 01/21/12 Aspirin [Adult Low Dose Aspirin EC] 81 mg PO DAILY 10/14/15 Allopurinol [Zyloprim] 300 mg PO DAILY 08/21/18 Furosemide [Lasix] 40 mg PO DAILY 08/21/18 Metoprolol Succinate 25 mg PO DAILY 08/21/18 Fish Oil/Dha/Epa [Fish Oil 1,200 mg Fish Oil] 1 cap PO DAILY 10/15/18 Allergies/Adverse Reactions: No Known Allergies Allergy (Verified 01/03/19 12:10) Review of Systems Constitutional: PRESENT: weakness. ABSENT: fever(s), headache(s), night sweats Eyes: ABSENT: visual disturbances Ears: ABSENT: hearing changes Nose, Mouth, and Throat: ABSENT: mouth pain, sore throat Cardiovascular: PRESENT: orthropnea. ABSENT: palpitations Respiratory: ABSENT: dyspnea, hemoptysis Gastrointestinal: ABSENT: hematemesis, hematochezia, melena Genitourinary: ABSENT: dysuria, hematuria Musculoskeletal: ABSENT: deformity Neurological: ABSENT: syncope, tingling, tremor(s), vertigo Endocrine: ABSENT: polydipsia, polyphagia, polyuria Hematologic/Lymphatic: ABSENT: easy bruising Physical Exam Vital Signs: Temp Pulse Resp BP Pulse Ox 97.9 F 59 L 14 119/65 96 03/18/19 11:44 03/18/19 11:44 03/18/19 11:44 03/18/19 11:44 03/18/19 11:44 Intake & Output 03/17/19 03/18/19 03/19/19 06:59 06:59 06:59 Intake Total 1284 1900 236 Output Total 1050 2025 Balance 234 -125 236 Weight 93.8 kg 95.9 kg General appearance: PRESENT: mild distress, well-developed, well-nourished Head exam: PRESENT: atraumatic, normocephalic Eye exam: PRESENT: EOMI, PERRLA. ABSENT: scleral icterus Mouth exam: PRESENT: moist, neck supple Throat exam: ABSENT: tonsillar exudate, tonsillogmegaly Neck exam: ABSENT: meningismus, tenderness, thyromegaly Respiratory exam: PRESENT: symmetrical. ABSENT: tachypnea, unlabored, wheezes Cardiovascular exam: PRESENT: irregular rhythm GI/Abdominal exam: PRESENT: soft. ABSENT: rebound, rigid Extremities exam: PRESENT: +1 edema. ABSENT: joint swelling Musculoskeletal exam: PRESENT: full ROM Neurological exam: PRESENT: oriented to time, oriented to situation, CN II-XII grossly intact Focused psych exam: ABSENT: restlessness Skin exam: PRESENT: normal color. ABSENT: mottled, pallor, urticaria, vesicles Results Laboratory Results: 03/18/19 05:35 03/18/19 05:35 03/18/19 03/18/19 03/18/19 05:35 05:35 13:20 WBC 7.5 RBC 5.22 Hgb 16.5 Hct 48.1 MCV 92 MCH 31.6 MCHC 34.2 RDW 16.0 H Plt Count 116 L Seg Neutrophils % 60.8 Lymphocytes % 27.7 Monocytes % 6.9 Eosinophils % 3.5 Basophils % 1.1 Absolute Neutrophils 4.6 Absolute Lymphocytes 2.1 Absolute Monocytes 0.5 Absolute Eosinophils 0.3 Absolute Basophils 0.1 Sodium 140.4 Potassium 4.3 Chloride 100 Carbon Dioxide 28 Anion Gap 12 BUN 28 H Creatinine 1.12 Est GFR ( Amer) > 60 Est GFR (Non-Af Amer) > 60 Glucose 183 H Calcium 9.3 Stool Occult Blood POSITIVE 03/16/19 03:53 NT-Pro-B Natriuret Pep 325 Impressions: Abdomen Ultrasound 03/16/19 00:00 IMPRESSION: Fatty infiltrative change to the liver. Sludge in the gallbladder lumen. Simple appearing right renal cyst. copyright 2011 [employer]- All Rights Reserved Assessment & Plan - Diagnosis (1) Heme positive stool Plan: patient's previous colonoscopy in 2011, was due for surveillance 2 years ago however has cardiac issues now that take precedence can have colonoscopy done, but can do as outpatient will need to see if Cardiology is agreeable to discontinue his Eliquis prior to the procedure likely blood itself is non specific and based on presentation does not appear to be consistent with diverticular bleeding or due to ulcers would start him on a PPI for now follow up as outpatient tune up his cardiac status and can schedule his colonoscopy as an outpatient I have spoken with Dr Ilya Brar for now is stable and no urgent intervention is required - Time Time Spent: 50 to 70 Minutes
[2019-03-18] MEDS ORDERED: APIXABAN 5 MG TABLET PO SCH (18:00)
[2019-03-18] MEDS: APIXABAN 2.5 MG TABLET PO SCH (18:11)
[2019-03-18] MEDS: INSULIN GLARGINE,HUM.REC.ANLOG 1,000 UNIT/10 ML VIAL SUBCUT SCH (21:48)
[2019-03-19 06:54] LABS: ABSOLUTE BASOPHILS # (AUTO) 0.1 10^3/uL (0.0-0.2); ABSOLUTE EOSINOPHILS # (AUTO) 0.3 10^3/uL (0.0-0.6); ABSOLUTE LYMPHOCYTES (AUTO) 2.4 10^3/uL (0.5-4.7); ABSOLUTE MONOCYTES (AUTO) 0.6 10^3/uL (0.1-1.4); ABSOLUTE NEUT (AUTO) 4.6 10^3/uL (1.7-8.2); BASOPHILS % (AUTO) 0.7 % (0-2); EOSINOPHILS % (AUTO) 3.8 % (0-6); HEMATOCRIT 47.3 % (37.9-51.0); HEMOGLOBIN 16.1 g/dL (13.5-17.0); LYMPHOCYTES % (AUTO) 30.4 % (13-45); MEAN CORPUSCULAR HEMOGLOBIN 31.7 pg (27.0-33.4); MEAN CORPUSCULAR VOLUME 93 fl (80-97); MONOCYTES % (AUTO) 7.6 % (3-13); PLATELET COUNT 130 10^3/uL (150-450); RED BLOOD COUNT 5.06 10^6/uL (4.35-5.55); RED CELL DISTRIBUTION WIDTH 15.9 % (11.5-14.0); SEGMENTED NEUTROPHILS % (AUTO) 57.5 % (42-78); TOTAL CELLS COUNTED % (AUTO) 100 %; WHITE BLOOD COUNT 7.9 10^3/uL (4.0-10.5)
[2019-03-19 07:15] LABS: ANION GAP 9 (5-19); BLOOD UREA NITROGEN 33 mg/dL (7-20); CALCIUM 9.2 mg/dL (8.4-10.2); CARBON DIOXIDE 29 mmol/L (22-30); CHLORIDE 98 mmol/L (98-107); GLUCOSE 159 mg/dL (75-110); POTASSIUM 4.1 mmol/L (3.6-5.0); SODIUM 136.4 mmol/L (137-145)
[2019-03-19] MEDS: SITAGLIPTIN PHOSPHATE 50 MG TABLET PO SCH ×2 (08:28→18:08)
[2019-03-19] MEDS: INSULIN LISPRO 100 UNIT/ML 3 ML VIAL SUBCUT SCH ×4 (08:28→22:16)
[2019-03-19] MEDS: OMEGA-3 ACID ETHYL ESTERS 1 GM CAPSULE PO SCH (08:28)
--- NOTE | 2019-03-19 08:50 | PDOC TRANSFER SUMMARY ---
General - Admit/Disc Date/PCP Admission Date/Primary Care Provider: 03/15/19 12:42 DHEERAJ DENSON MD Discharge Date: 03/19/19 - Discharge Diagnosis (1) Hyperglycemia due to type 2 diabetes mellitus Is this a current diagnosis for this admission?: Yes Summary: Currently all resolved (2) Abnormal LFTs Is this a current diagnosis for this admission?: Yes Summary: Currently all stable (3) Thrombocytopenia Is this a current diagnosis for this admission?: Yes Summary: Since seen by the school vocational educator in the past is an issue with the tube EDTA but otherwise stable (4) Atrial fibrillation Is this a current diagnosis for this admission?: Yes Summary: Continues to Eliquis and continues to Cardizem (5) Cardiomyopathy Is this a current diagnosis for this admission?: Yes Summary: Is currently see her Dr. larry (6) Hyperlipidemia Is this a current diagnosis for this admission?: Yes Summary: [place] all stable (7) Hypertension Is this a current diagnosis for this admission?: Yes Summary: Patient is currently running low side but completely asymptomatic we will reduce the metro perampanel 12.5 mg and if is still running locked discontinue symmetric blood problem continues to Cardizem (8) Impaired ambulation Is this a current diagnosis for this admission?: Yes Summary: pt need to do physical therapy (9) Lymphedema Is this a current diagnosis for this admission?: Yes Summary: Continues to compression stocking (10) Weakness Is this a current diagnosis for this admission?: Yes - Additional Information Discharge Diet: Diabetic Discharge Activity: Activity As Tolerated Prescriptions: Apixaban [Eliquis 2.5 mg Tablet] 2.5 mg PO BID #60 tablet Docusate Sodium [Colace 100 mg Capsule] 100 mg PO BID #60 capsule Insulin Glargine,Hum.rec.anlog [Lantus Insulin 100 Unit/1 ml 10 ml] 15 unit SUBCUT QHS #1 unit Insulin Lispro [Humalog Insulin (Lispro) 100 unit/mL] 0 - 12 unit SUBCUT ACHS #1 unit Metoprolol Succinate [Toprol Xl 25 mg Tab.sr] 12.5 mg PO DAILY #30 tab.sr.24h Polyethylene Glycol 3350 [Miralax Powder 17 gm/Packet] 17 gm PO DAILYP PRN #30 powd.pack PRN Reason: Sitagliptin Phosphate [Januvia 50 mg Tablet] 50 mg PO BIDACBS #60 tablet Home Medications: Diltiazem HCl [Cardizem Cd 120 mg Capsule] 120 mg PO DAILY 01/20/12 Digoxin [Lanoxin 0.125 mg Tablet] 0.125 mg PO DAILY 01/21/12 Aspirin [Adult Low Dose Aspirin EC] 81 mg PO DAILY 10/14/15 Allopurinol [Zyloprim] 300 mg PO DAILY 08/21/18 Furosemide [Lasix] 40 mg PO DAILY 08/21/18 Fish Oil/Dha/Epa [Fish Oil 1,200 mg Fish Oil] 1 cap PO DAILY 10/15/18 Apixaban [Eliquis 2.5 mg Tablet] 2.5 mg PO BID #60 tablet 03/19/19 Docusate Sodium [Colace 100 mg Capsule] 100 mg PO BID #60 capsule 03/19/19 Insulin Glargine,Hum.rec.anlog [Lantus Insulin 100 Unit/1 ml 10 ml] 15 unit SUBCUT QHS #1 unit 03/19/19 Insulin Lispro [Humalog Insulin (Lispro) 100 unit/mL] 0 - 12 unit SUBCUT ACHS #1 unit 03/19/19 Metoprolol Succinate [Toprol Xl 25 mg Tab.sr] 12.5 mg PO DAILY #30 tab.sr.24h 03/19/19 Polyethylene Glycol 3350 [Miralax Powder 17 gm/Packet] 17 gm PO DAILYP PRN #30 powd.pack 03/19/19 Sitagliptin Phosphate [Januvia 50 mg Tablet] 50 mg PO BIDACBS #60 tablet 03/19/19 History of Present Illness Admission Date/PCP: 03/15/19 12:42 DHEERAJ DENSON MD History of Present Illness: DARLING NAVARRO is a 84 year old male This is a 84-year-old male with a significant history of coronary artery disease chronic lymphedema sick sinus syndrome status post pacemaker currently see her in the history of the type 2 diabetes with the last A1c was 6.4 with the chronic disability due to unable to move with the multiple hospital admissions have a home health draw the blood and patient's blood sugar was 420 and patient was brought to the office with the blood sugar was above 400 Patient's anion gap was all normal patient is currently denied any symptoms Recently it patient's liver enzyme was elevated and the patient's director executive communications Dr. larry check it again and according to the daughter Jc coming down Patient is denied any chest pain to than any shortness of the breath Patient is denied any fever no chills no urinary symptoms Patient with chronic lymphedema Patient is chronic and Eliquis due to the chronic A. fib Hospital Course Hospital Course: This is a 84-year-old male with the multiple medical issues as elbow with impaired ambulation's issue came to the at my office because of the blood sugar is running 500 range\ The patient's recent hemoglobin A1c her check in the hospital was 13 Patient admitting in the hospital started on a sliding scale and Lantus Patient's response very well blood sugar is coming down to 180 range Patient's otherwise other medical problem is all stable Patients have some blood in the stools due to the most likely hard stool and probably small hemorrhoids seen by the GI and suggest patient stated outpatients colonoscopy Patient hemoglobin is all stable no active GI bleed seen Patient's cardiac standpoint all stable Patient's blood pressure is stable's no concern about any low blood pressure issues patient's having denied any complaints No fever no chills Discussed with the patient's [id number] Christi regarding the patient's current conditions on the discharge Patient having multiple issues unable to move much patients require long-term rehab Patient is currently on Eliquis 2.5 mg twice a day Patient's need outpatients to see Dr. Floyd for possible colonoscopy Check a CBC and Chem-7 in 1 week in the rehab facility Fall precautions Physical Exam Vital Signs: Temp Pulse Resp BP Pulse Ox 97.3 F 64 17 111/64 97 03/19/19 00:06 03/19/19 07:00 03/19/19 00:06 03/19/19 00:06 03/19/19 00:06 Intake & Output 03/18/19 03/19/19 03/20/19 06:59 06:59 06:59 Intake Total 1900 236 Output Total 2024 485 Balance -125 -249 Weight 95.9 kg 97.5 kg General appearance: PRESENT: no acute distress, well-developed, well-nourished Head exam: PRESENT: atraumatic, normocephalic Eye exam: PRESENT: conjunctiva pink, EOMI, PERRLA. ABSENT: scleral icterus Ear exam: PRESENT: normal external ear exam Mouth exam: PRESENT: moist, tongue midline Neck exam: ABSENT: carotid bruit, JVD, lymphadenopathy, thyromegaly Respiratory exam: PRESENT: clear to auscultation celso. ABSENT: rales, rhonchi, wheezes Cardiovascular exam: PRESENT: RRR. ABSENT: diastolic murmur, rubs, systolic murmur Pulses: PRESENT: normal dorsalis pedis pul Vascular exam: PRESENT: normal capillary refill GI/Abdominal exam: PRESENT: normal bowel sounds, soft. ABSENT: distended, guarding, mass, organolmegaly, rebound, tenderness Rectal exam: PRESENT: deferred Extremities exam: PRESENT: full ROM. ABSENT: calf tenderness, clubbing, pedal edema Neurological exam: PRESENT: alert, awake, oriented to person, oriented to place, oriented to time, oriented to situation, CN II-XII grossly intact. ABSENT: motor sensory deficit Psychiatric exam: PRESENT: appropriate affect, normal mood. ABSENT: homicidal ideation, suicidal ideation Skin exam: PRESENT: dry, intact, warm. ABSENT: cyanosis, rash Results Laboratory Results: 03/19/19 05:50 03/19/19 05:50 03/18/19 03/19/19 03/19/19 13:20 05:50 05:50 WBC 7.9 RBC 5.06 Hgb 16.1 Hct 47.3 MCV 93 MCH 31.7 MCHC 34.0 RDW 15.9 H Plt Count 130 L Seg Neutrophils % 57.5 Lymphocytes % 30.4 Monocytes % 7.6 Eosinophils % 3.8 Basophils % 0.7 Absolute Neutrophils 4.6 Absolute Lymphocytes 2.4 Absolute Monocytes 0.6 Absolute Eosinophils 0.3 Absolute Basophils 0.1 Sodium 136.4 L Potassium 4.1 Chloride 98 Carbon Dioxide 29 Anion Gap 9 BUN 33 H Creatinine 1.28 H Est GFR ( Amer) > 60 Est GFR (Non-Af Amer) 53 L Glucose 159 H Calcium 9.2 Stool Occult Blood POSITIVE 03/16/19 03:53 NT-Pro-B Natriuret Pep 325 Impressions: Abdomen Ultrasound 03/16/19 00:00 IMPRESSION: Fatty infiltrative change to the liver. Sludge in the gallbladder lumen. Simple appearing right renal cyst. copyright 2010 [employer]- All Rights Reserved Transfer Plan - Time Spent with Patient Time spent with patient: Greater than 30 Minutes Qualifiers - * PATIENT BEING DISCHARGED WITH ANY OF THE FOLLOWING DIAGNOSIS: No VTE patient discharged on overlapping Therapy?: Yes Acute Heart Failure Is this a Heart Failure Patient?: No Documentation of LVEF assessment?: Yes Plan Time Spent: Greater than 30 Minutes - Discharge to the rehab facility
[2019-03-19] MEDS: ASPIRIN 81 MG TABLET, ENT COATED PO SCH (11:44)
[2019-03-19] MEDS: DOCUSATE SODIUM 100 MG CAPSULE PO SCH ×2 (11:44→18:06)
[2019-03-19] MEDS: APIXABAN 2.5 MG TABLET PO SCH ×2 (11:44→18:06)
[2019-03-19] MEDS: FUROSEMIDE 40 MG TABLET PO SCH (11:44)
[2019-03-19] MEDS: ALLOPURINOL 300 MG TABLET PO SCH (11:45)
[2019-03-19] MEDS: METOPROLOL SUCCINATE 25 MG TAB.SR.24H PO SCH (11:45)
[2019-03-19] MEDS: DILTIAZEM HCL 120 MG CAP.SR.24H PO SCH (11:45)
[2019-03-19] MEDS: DIGOXIN 0.125 MG TABLET PO SCH (11:46)
[2019-03-19] MEDS ORDERED: BISACODYL 10 MG SUPP.RECT PR ONE (18:00)
[2019-03-19] MEDS: INSULIN GLARGINE,HUM.REC.ANLOG 1,000 UNIT/10 ML VIAL SUBCUT SCH (22:16)
[2019-03-20] MEDS: SITAGLIPTIN PHOSPHATE 50 MG TABLET PO SCH ×2 (08:02→18:06)
[2019-03-20] MEDS: OMEGA-3 ACID ETHYL ESTERS 1 GM CAPSULE PO SCH (08:02)
[2019-03-20] MEDS: INSULIN LISPRO 100 UNIT/ML 3 ML VIAL SUBCUT SCH ×4 (08:09→22:49)
--- NOTE | 2019-03-20 10:18 | PDOC PROGRESS REPORT ---
Subjective Progress Note for:: 03/20/19 Subjective:: Patient is currently doing well Patient of issue with some constipation's and a hard stools Patient other than denied any abdominal pain no nausea no vomiting Patient's blood sugar is coming down Reason For Visit: HYPERGLYCEMIA Physical Exam Vital Signs: Temp Pulse Resp BP Pulse Ox 97.4 F 59 L 18 107/66 97 03/20/19 09:00 03/20/19 09:00 03/20/19 09:00 03/20/19 09:00 03/20/19 09:00 Intake & Output 03/19/19 03/20/19 03/21/19 06:59 06:59 06:59 Intake Total 236 1000 Output Total 485 400 Balance -249 600 Weight 97.5 kg 97.5 kg General appearance: PRESENT: no acute distress, well-developed, well-nourished Head exam: PRESENT: atraumatic, normocephalic Eye exam: PRESENT: conjunctiva pink, EOMI, PERRLA. ABSENT: scleral icterus Ear exam: PRESENT: normal external ear exam Mouth exam: PRESENT: moist, tongue midline Neck exam: PRESENT: full ROM. ABSENT: carotid bruit, JVD, lymphadenopathy, thyromegaly Respiratory exam: PRESENT: clear to auscultation celso Cardiovascular exam: PRESENT: RRR. ABSENT: diastolic murmur, rubs, systolic murmur Pulses: PRESENT: normal dorsalis pedis pul, +2 pedal pulses bilateral Vascular exam: PRESENT: normal capillary refill GI/Abdominal exam: PRESENT: normal bowel sounds, soft. ABSENT: distended, guarding, mass, organolmegaly, rebound, tenderness Rectal exam: PRESENT: deferred Neurological exam: PRESENT: alert, awake, oriented to person, oriented to place, oriented to time, oriented to situation, CN II-XII grossly intact. ABSENT: motor sensory deficit Psychiatric exam: PRESENT: appropriate affect, normal mood. ABSENT: homicidal ideation, suicidal ideation Skin exam: PRESENT: dry, intact, warm. ABSENT: cyanosis, rash Results Laboratory Results: 03/19/19 05:50 03/19/19 05:50 03/16/19 03:53 NT-Pro-B Natriuret Pep 325 Impressions: Abdomen Ultrasound 03/16/19 00:00 IMPRESSION: Fatty infiltrative change to the liver. Sludge in the gallbladder lumen. Simple appearing right renal cyst. copyright 2011 [employer]- All Rights Reserved Assessment & Plan - Diagnosis (1) Hyperglycemia due to type 2 diabetes mellitus Qualifiers: Diabetes mellitus ocean transportation intermediary insulin use: without ocean transportation intermediary use Qualified Code(s): E11.65 - Type 2 diabetes mellitus with hyperglycemia Is this a current diagnosis for this admission?: Yes (2) Abnormal LFTs Is this a current diagnosis for this admission?: Yes (3) Thrombocytopenia Is this a current diagnosis for this admission?: Yes (4) Atrial fibrillation Qualifiers: Atrial fibrillation type: chronic Qualified Code(s): I48.2 - Chronic atrial fibrillation Is this a current diagnosis for this admission?: Yes (5) Cardiomyopathy Qualifiers: Cardiomyopathy type: unspecified Qualified Code(s): I42.9 - Cardiomyopathy, unspecified Is this a current diagnosis for this admission?: Yes (6) Hyperlipidemia Qualifiers: Hyperlipidemia type: unspecified Qualified Code(s): E78.5 - Hyperlipidemia, unspecified Is this a current diagnosis for this admission?: Yes (7) Hypertension Qualifiers: Hypertension type: essential hypertension Qualified Code(s): I10 - Essential (primary) hypertension Is this a current diagnosis for this admission?: Yes (8) Impaired ambulation Is this a current diagnosis for this admission?: Yes (9) Lymphedema Is this a current diagnosis for this admission?: Yes (10) Weakness Is this a current diagnosis for this admission?: Yes - Time Time Spent with patient: 15-24 minutes Medications reviewed and adjusted accordingly: Yes Anticipated discharge: SNF, Other Within: Other - Plan Summary Plan Summary: Continues to current medication
[2019-03-20] MEDS: DIGOXIN 0.125 MG TABLET PO SCH (11:15)
[2019-03-20] MEDS: METOPROLOL SUCCINATE 25 MG TAB.SR.24H PO SCH (11:15)
[2019-03-20] MEDS: DOCUSATE SODIUM 100 MG CAPSULE PO SCH ×2 (11:20→18:04)
[2019-03-20] MEDS: FUROSEMIDE 40 MG TABLET PO SCH (11:21)
[2019-03-20] MEDS: DILTIAZEM HCL 120 MG CAP.SR.24H PO SCH (11:21)
[2019-03-20] MEDS: APIXABAN 2.5 MG TABLET PO SCH ×2 (11:21→18:04)
[2019-03-20] MEDS: ASPIRIN 81 MG TABLET, ENT COATED PO SCH (11:22)
[2019-03-20] MEDS: ALLOPURINOL 300 MG TABLET PO SCH (11:23)
[2019-03-20] MEDS: INSULIN GLARGINE,HUM.REC.ANLOG 1,000 UNIT/10 ML VIAL SUBCUT SCH (22:50)
[2019-03-21] MEDS: INSULIN LISPRO 100 UNIT/ML 3 ML VIAL SUBCUT SCH ×4 (07:31→21:51)
[2019-03-21] MEDS: SITAGLIPTIN PHOSPHATE 50 MG TABLET PO SCH ×2 (07:38→16:18)
[2019-03-21] MEDS: OMEGA-3 ACID ETHYL ESTERS 1 GM CAPSULE PO SCH (07:38)
[2019-03-21] MEDS: DOCUSATE SODIUM 100 MG CAPSULE PO SCH ×2 (09:47→17:04)
[2019-03-21] MEDS: ASPIRIN 81 MG TABLET, ENT COATED PO SCH (09:47)
[2019-03-21] MEDS: DILTIAZEM HCL 120 MG CAP.SR.24H PO SCH (09:50)
[2019-03-21] MEDS: APIXABAN 2.5 MG TABLET PO SCH ×2 (09:50→17:04)
[2019-03-21] MEDS: FUROSEMIDE 40 MG TABLET PO SCH (09:51)
[2019-03-21] MEDS: DIGOXIN 0.125 MG TABLET PO SCH (09:51)
[2019-03-21] MEDS: ALLOPURINOL 300 MG TABLET PO SCH (09:52)
[2019-03-21] MEDS: METOPROLOL SUCCINATE 25 MG TAB.SR.24H PO SCH (09:52)
--- NOTE | 2019-03-21 10:51 | PDOC PROGRESS REPORT ---
Subjective Progress Note for:: 03/21/19 Subjective:: Patient is currently doing well Patient of issue with some constipation's and a hard stools Patient other than denied any abdominal pain no nausea no vomiting Patient's blood sugar is coming down Reason For Visit: HYPERGLYCEMIA Physical Exam Vital Signs: Temp Pulse Resp BP Pulse Ox 97.3 F 60 16 130/70 H 98 03/21/19 08:00 03/21/19 08:00 03/21/19 08:00 03/21/19 08:00 03/21/19 08:00 Intake & Output 03/20/19 03/21/19 03/22/19 06:59 06:59 06:59 Intake Total 1000 1170 720 Output Total 400 800 500 Balance 600 370 220 Weight 97.5 kg General appearance: PRESENT: no acute distress, well-developed, well-nourished Head exam: PRESENT: atraumatic, normocephalic Eye exam: PRESENT: conjunctiva pink, EOMI, PERRLA. ABSENT: scleral icterus Ear exam: PRESENT: normal external ear exam Mouth exam: PRESENT: moist, tongue midline Neck exam: PRESENT: full ROM. ABSENT: carotid bruit, JVD, lymphadenopathy, thyromegaly Respiratory exam: PRESENT: clear to auscultation celso Cardiovascular exam: PRESENT: RRR. ABSENT: diastolic murmur, rubs, systolic murmur Pulses: PRESENT: normal dorsalis pedis pul, +2 pedal pulses bilateral Vascular exam: PRESENT: normal capillary refill GI/Abdominal exam: PRESENT: normal bowel sounds, soft. ABSENT: distended, guarding, mass, organolmegaly, rebound, tenderness Rectal exam: PRESENT: deferred Neurological exam: PRESENT: alert, awake, oriented to person, oriented to place, oriented to time, oriented to situation, CN II-XII grossly intact. ABSENT: motor sensory deficit Psychiatric exam: PRESENT: appropriate affect, normal mood. ABSENT: homicidal ideation, suicidal ideation Skin exam: PRESENT: dry, intact, warm. ABSENT: cyanosis, rash Results Laboratory Results: 03/19/19 05:50 03/19/19 05:50 03/16/19 03:53 NT-Pro-B Natriuret Pep 325 Impressions: Abdomen Ultrasound 03/16/19 00:00 IMPRESSION: Fatty infiltrative change to the liver. Sludge in the gallbladder lumen. Simple appearing right renal cyst. copyright 2010 [employer]- All Rights Reserved Assessment & Plan - Diagnosis (1) Hyperglycemia due to type 2 diabetes mellitus Qualifiers: Diabetes mellitus terminal make up operator insulin use: without terminal make up operator use Qualified Code(s): E11.65 - Type 2 diabetes mellitus with hyperglycemia Is this a current diagnosis for this admission?: Yes Plan: Increase the Lantus 15 units at night At the Januvia 50 mg twice a day (2) Abnormal LFTs Is this a current diagnosis for this admission?: Yes Plan: Since ultrasounds of the abdomen is stable (3) Thrombocytopenia Is this a current diagnosis for this admission?: Yes Plan: Patient seen by the therapeutic riding instructor in the past but no sign of any CML and no sign of any malignancy most likely due to the platelet clumping (4) Atrial fibrillation Qualifiers: Atrial fibrillation type: chronic Qualified Code(s): I48.2 - Chronic atrial fibrillation Is this a current diagnosis for this admission?: Yes Plan: Continues to Eliquis (5) Cardiomyopathy Qualifiers: Cardiomyopathy type: unspecified Qualified Code(s): I42.9 - Cardiomyopathy, unspecified Is this a current diagnosis for this admission?: Yes Plan: Continues to Lasix (6) Hyperlipidemia Qualifiers: Hyperlipidemia type: unspecified Qualified Code(s): E78.5 - Hyperlipidemia, unspecified Is this a current diagnosis for this admission?: Yes Plan: Unable to take any statin due to the rhabdomyolysis (7) Hypertension Qualifiers: Hypertension type: essential hypertension Qualified Code(s): I10 - Essential (primary) hypertension Is this a current diagnosis for this admission?: Yes Plan: Mr. current medications (8) Impaired ambulation Is this a current diagnosis for this admission?: Yes Plan: Physical therapy evaluations (9) Lymphedema Is this a current diagnosis for this admission?: Yes (10) Weakness Is this a current diagnosis for this admission?: Yes - Time Time Spent with patient: 15-24 minutes Medications reviewed and adjusted accordingly: Yes Anticipated discharge: SNF Within: within 24 hours - Plan Summary Plan Summary: Continues to current medication
[2019-03-21] MEDS: INSULIN GLARGINE,HUM.REC.ANLOG 1,000 UNIT/10 ML VIAL SUBCUT SCH (21:53)
[2019-03-22] MEDS: SITAGLIPTIN PHOSPHATE 50 MG TABLET PO SCH ×2 (08:39→17:45)
[2019-03-22] MEDS: INSULIN LISPRO 100 UNIT/ML 3 ML VIAL SUBCUT SCH ×4 (08:39→21:18)
[2019-03-22] MEDS: OMEGA-3 ACID ETHYL ESTERS 1 GM CAPSULE PO SCH (08:39)
--- NOTE | 2019-03-22 09:21 | PDOC PROGRESS REPORT ---
Subjective Progress Note for:: 03/22/19 Subjective:: Patient is currently doing well Patient's blood sugar under well control Patient still have impaired ability to walk and discharge spinal told me that the [employer] does not approve for the patient's to go to the rehab but patient's family unable to take care at home and patient high risk for the fall and in a week and need a inpatients rehab benefit Reason For Visit: HYPERGLYCEMIA Physical Exam Vital Signs: Temp Pulse Resp BP Pulse Ox 97.8 F 52 L 17 113/71 98 03/22/19 08:00 03/22/19 08:00 03/22/19 08:00 03/22/19 08:00 03/22/19 08:00 Intake & Output 03/21/19 03/22/19 03/23/19 06:59 06:59 06:59 Intake Total 1170 2145 Output Total 800 1925 Balance 370 220 Weight 99 kg General appearance: PRESENT: no acute distress, well-developed, well-nourished Head exam: PRESENT: atraumatic, normocephalic Eye exam: PRESENT: conjunctiva pink, EOMI, PERRLA. ABSENT: scleral icterus Ear exam: PRESENT: normal external ear exam Mouth exam: PRESENT: moist, tongue midline Neck exam: PRESENT: full ROM. ABSENT: carotid bruit, JVD, lymphadenopathy, thyromegaly Respiratory exam: PRESENT: clear to auscultation celso Cardiovascular exam: PRESENT: RRR. ABSENT: diastolic murmur, rubs, systolic murmur Vascular exam: PRESENT: normal capillary refill GI/Abdominal exam: PRESENT: normal bowel sounds, soft. ABSENT: distended, guarding, mass, organolmegaly, rebound, tenderness Rectal exam: PRESENT: deferred Extremities exam: ABSENT: pedal edema Neurological exam: PRESENT: alert, awake, oriented to person, oriented to place, oriented to time, oriented to situation, CN II-XII grossly intact. ABSENT: motor sensory deficit Psychiatric exam: PRESENT: appropriate affect, normal mood. ABSENT: homicidal ideation, suicidal ideation Skin exam: PRESENT: dry, intact, warm. ABSENT: cyanosis, rash Results Laboratory Results: 03/19/19 05:50 03/19/19 05:50 03/16/19 03:53 NT-Pro-B Natriuret Pep 325 Impressions: Abdomen Ultrasound 03/16/19 00:00 IMPRESSION: Fatty infiltrative change to the liver. Sludge in the gallbladder lumen. Simple appearing right renal cyst. copyright 2011 [employer]- All Rights Reserved Assessment & Plan - Diagnosis (1) Hyperglycemia due to type 2 diabetes mellitus Qualifiers: Diabetes mellitus parts counterman insulin use: without parts counterman use Qualified Code(s): E11.65 - Type 2 diabetes mellitus with hyperglycemia Is this a current diagnosis for this admission?: Yes (2) Abnormal LFTs Is this a current diagnosis for this admission?: Yes (3) Thrombocytopenia Is this a current diagnosis for this admission?: Yes (4) Atrial fibrillation Qualifiers: Atrial fibrillation type: chronic Qualified Code(s): I48.2 - Chronic atrial fibrillation Is this a current diagnosis for this admission?: Yes (5) Cardiomyopathy Qualifiers: Cardiomyopathy type: unspecified Qualified Code(s): I42.9 - Cardiomyopathy, unspecified Is this a current diagnosis for this admission?: Yes (6) Hyperlipidemia Qualifiers: Hyperlipidemia type: unspecified Qualified Code(s): E78.5 - Hyperlipidemia, unspecified Is this a current diagnosis for this admission?: Yes (7) Hypertension Qualifiers: Hypertension type: essential hypertension Qualified Code(s): I10 - Essential (primary) hypertension Is this a current diagnosis for this admission?: Yes (8) Impaired ambulation Is this a current diagnosis for this admission?: Yes (9) Lymphedema Is this a current diagnosis for this admission?: Yes (10) Weakness Is this a current diagnosis for this admission?: Yes - Time Time Spent with patient: 15-24 minutes Medications reviewed and adjusted accordingly: Yes Anticipated discharge: SNF - Plan Summary Plan Summary: Again patients strongly get a benefit to the inpatients rehab Discussed with the senior buyer planner
[2019-03-22] MEDS: DOCUSATE SODIUM 100 MG CAPSULE PO SCH ×2 (10:05→17:45)
[2019-03-22] MEDS: DILTIAZEM HCL 120 MG CAP.SR.24H PO SCH (10:05)
[2019-03-22] MEDS: ASPIRIN 81 MG TABLET, ENT COATED PO SCH (10:05)
[2019-03-22] MEDS: METOPROLOL SUCCINATE 25 MG TAB.SR.24H PO SCH (10:06)
[2019-03-22] MEDS: APIXABAN 2.5 MG TABLET PO SCH ×2 (10:06→17:45)
[2019-03-22] MEDS: FUROSEMIDE 40 MG TABLET PO SCH (10:07)
[2019-03-22] MEDS: ALLOPURINOL 300 MG TABLET PO SCH (10:18)
[2019-03-22] MEDS: DIGOXIN 0.125 MG TABLET PO SCH (10:18)
[2019-03-22] MEDS: INSULIN GLARGINE,HUM.REC.ANLOG 1,000 UNIT/10 ML VIAL SUBCUT SCH (21:18)
[2019-03-23] MEDS: INSULIN LISPRO 100 UNIT/ML 3 ML VIAL SUBCUT SCH ×4 (07:34→22:10)
[2019-03-23] MEDS: OMEGA-3 ACID ETHYL ESTERS 1 GM CAPSULE PO SCH (07:41)
[2019-03-23] MEDS: SITAGLIPTIN PHOSPHATE 50 MG TABLET PO SCH ×2 (07:41→17:47)
[2019-03-23] MEDS: ASPIRIN 81 MG TABLET, ENT COATED PO SCH (09:19)
[2019-03-23] MEDS: DOCUSATE SODIUM 100 MG CAPSULE PO SCH ×2 (09:19→17:47)
[2019-03-23] MEDS: FUROSEMIDE 40 MG TABLET PO SCH (09:20)
[2019-03-23] MEDS: APIXABAN 2.5 MG TABLET PO SCH ×2 (09:20→17:47)
[2019-03-23] MEDS: DILTIAZEM HCL 120 MG CAP.SR.24H PO SCH (09:20)
[2019-03-23] MEDS: ALLOPURINOL 300 MG TABLET PO SCH (09:21)
[2019-03-23] MEDS: DIGOXIN 0.125 MG TABLET PO SCH (09:21)
[2019-03-23] MEDS: METOPROLOL SUCCINATE 25 MG TAB.SR.24H PO SCH (09:21)
--- NOTE | 2019-03-23 09:35 | PDOC PROGRESS REPORT ---
Subjective Progress Note for:: 03/23/19 Subjective:: Patient is currently doing well Patient's blood sugar under well control Patient still have impaired ability to walk and discharge spinal told me that the [employer] does not approve for the patient's to go to the rehab but patient's family unable to take care at home and patient high risk for the fall and in a week and need a inpatients rehab benefit Reason For Visit: HYPERGLYCEMIA Physical Exam Vital Signs: Temp Pulse Resp BP Pulse Ox 97.8 F 60 16 97/49 L 96 03/22/19 23:14 03/23/19 07:00 03/22/19 23:14 03/22/19 23:14 03/22/19 23:14 Intake & Output 03/22/19 03/23/19 03/24/19 06:59 06:59 06:59 Intake Total 2145 1745 Output Total 1925 1700 Balance 220 45 Weight 99 kg 101.7 kg General appearance: PRESENT: no acute distress, well-developed, well-nourished Head exam: PRESENT: atraumatic, normocephalic Eye exam: PRESENT: conjunctiva pink, EOMI, PERRLA. ABSENT: scleral icterus Ear exam: PRESENT: normal external ear exam Mouth exam: PRESENT: moist, tongue midline Neck exam: PRESENT: full ROM. ABSENT: carotid bruit, JVD, lymphadenopathy, thyromegaly Respiratory exam: PRESENT: clear to auscultation celso Cardiovascular exam: PRESENT: RRR. ABSENT: diastolic murmur, rubs, systolic murmur Vascular exam: PRESENT: normal capillary refill GI/Abdominal exam: PRESENT: normal bowel sounds, soft. ABSENT: distended, guarding, mass, organolmegaly, rebound, tenderness Rectal exam: PRESENT: deferred Neurological exam: PRESENT: alert, awake, oriented to person, oriented to place, oriented to time, oriented to situation, CN II-XII grossly intact. ABSENT: motor sensory deficit Psychiatric exam: PRESENT: appropriate affect, normal mood. ABSENT: homicidal ideation, suicidal ideation Skin exam: PRESENT: dry, intact, warm. ABSENT: cyanosis, rash Results Laboratory Results: 03/19/19 05:50 03/19/19 05:50 03/16/19 03:53 NT-Pro-B Natriuret Pep 325 Impressions: Abdomen Ultrasound 03/16/19 00:00 IMPRESSION: Fatty infiltrative change to the liver. Sludge in the gallbladder lumen. Simple appearing right renal cyst. copyright 2010 [employer]- All Rights Reserved Assessment & Plan - Diagnosis (1) Hyperglycemia due to type 2 diabetes mellitus Qualifiers: Diabetes mellitus care home insulin use: without termite control servicer use Qualified Code(s): E11.65 - Type 2 diabetes mellitus with hyperglycemia Is this a current diagnosis for this admission?: Yes (2) Abnormal LFTs Is this a current diagnosis for this admission?: Yes (3) Thrombocytopenia Is this a current diagnosis for this admission?: Yes (4) Atrial fibrillation Qualifiers: Atrial fibrillation type: chronic Qualified Code(s): I48.2 - Chronic atrial fibrillation Is this a current diagnosis for this admission?: Yes (5) Cardiomyopathy Qualifiers: Cardiomyopathy type: unspecified Qualified Code(s): I42.9 - Cardiomyopathy, unspecified Is this a current diagnosis for this admission?: Yes (6) Hyperlipidemia Qualifiers: Hyperlipidemia type: unspecified Qualified Code(s): E78.5 - Hyperlipidemia, unspecified Is this a current diagnosis for this admission?: Yes (7) Hypertension Qualifiers: Hypertension type: essential hypertension Qualified Code(s): I10 - Essential (primary) hypertension Is this a current diagnosis for this admission?: Yes (8) Impaired ambulation Is this a current diagnosis for this admission?: Yes (9) Lymphedema Is this a current diagnosis for this admission?: Yes (10) Weakness Is this a current diagnosis for this admission?: Yes - Time Time Spent with patient: 15-24 minutes Medications reviewed and adjusted accordingly: Yes Anticipated discharge: Other Within: Other - Plan Summary Plan Summary: cont curr med
[2019-03-23] MEDS: INSULIN GLARGINE,HUM.REC.ANLOG 1,000 UNIT/10 ML VIAL SUBCUT SCH (22:11)
[2019-03-24] MEDS: INSULIN LISPRO 100 UNIT/ML 3 ML VIAL SUBCUT SCH ×4 (09:55→22:51)
[2019-03-24] MEDS: DILTIAZEM HCL 120 MG CAP.SR.24H PO SCH (10:15)
[2019-03-24] MEDS: METOPROLOL SUCCINATE 25 MG TAB.SR.24H PO SCH (10:26)
[2019-03-24] MEDS: ASPIRIN 81 MG TABLET, ENT COATED PO SCH (10:26)
[2019-03-24] MEDS: DIGOXIN 0.125 MG TABLET PO SCH (10:26)
[2019-03-24] MEDS: FUROSEMIDE 40 MG TABLET PO SCH (10:26)
[2019-03-24] MEDS: DOCUSATE SODIUM 100 MG CAPSULE PO SCH ×2 (10:26→17:34)
[2019-03-24] MEDS: SITAGLIPTIN PHOSPHATE 50 MG TABLET PO SCH ×2 (10:26→17:34)
[2019-03-24] MEDS: OMEGA-3 ACID ETHYL ESTERS 1 GM CAPSULE PO SCH (10:26)
[2019-03-24] MEDS: APIXABAN 2.5 MG TABLET PO SCH ×2 (10:26→17:34)
[2019-03-24] MEDS: ALLOPURINOL 300 MG TABLET PO SCH (10:27)
[2019-03-24] MEDS: INSULIN GLARGINE,HUM.REC.ANLOG 1,000 UNIT/10 ML VIAL SUBCUT SCH (22:51)
--- NOTE | 2019-03-25 09:33 | PDOC PROGRESS REPORT ---
Subjective Progress Note for:: 03/25/19 Subjective:: It is currently doing same Patient is waiting to going to the rehab facility Family already refused to take him back because unable to take care of him Patient is a very poor mobility Patient's otherwise denied any chest pain denied any shortness of the breath Reason For Visit: HYPERGLYCEMIA Physical Exam Vital Signs: Temp Pulse Resp BP Pulse Ox 97.2 F 58 L 16 126/76 H 96 03/25/19 08:52 03/25/19 08:52 03/25/19 08:52 03/25/19 08:52 03/25/19 08:52 Intake & Output 03/24/19 03/25/19 03/26/19 06:59 06:59 06:59 Intake Total 1180 1875 Output Total 900 1150 Balance 280 725 Weight 101.7 kg 101.7 kg General appearance: PRESENT: no acute distress, well-developed, well-nourished Head exam: PRESENT: atraumatic, normocephalic Eye exam: PRESENT: conjunctiva pink, EOMI, PERRLA. ABSENT: scleral icterus Ear exam: PRESENT: normal external ear exam Mouth exam: PRESENT: moist, tongue midline Neck exam: PRESENT: full ROM. ABSENT: carotid bruit, JVD, lymphadenopathy, thyromegaly Respiratory exam: PRESENT: clear to auscultation celso Cardiovascular exam: PRESENT: RRR. ABSENT: diastolic murmur, rubs, systolic murmur Vascular exam: PRESENT: normal capillary refill GI/Abdominal exam: PRESENT: normal bowel sounds, soft. ABSENT: distended, guarding, mass, organolmegaly, rebound, tenderness Rectal exam: PRESENT: deferred Extremities exam: ABSENT: pedal edema Neurological exam: PRESENT: alert, awake, oriented to person, oriented to place, oriented to time, oriented to situation, CN II-XII grossly intact. ABSENT: motor sensory deficit Psychiatric exam: PRESENT: appropriate affect, normal mood. ABSENT: homicidal ideation, suicidal ideation Skin exam: PRESENT: dry, intact, warm. ABSENT: cyanosis, rash Results Laboratory Results: 03/19/19 05:50 03/19/19 05:50 03/16/19 03:53 NT-Pro-B Natriuret Pep 325 Impressions: Abdomen Ultrasound 03/16/19 00:00 IMPRESSION: Fatty infiltrative change to the liver. Sludge in the gallbladder lumen. Simple appearing right renal cyst. copyright 2010 [employer]- All Rights Reserved Assessment & Plan - Diagnosis (1) Hyperglycemia due to type 2 diabetes mellitus Qualifiers: Diabetes mellitus mcc insulin use: without long goods drier use Qualified Code(s): E11.65 - Type 2 diabetes mellitus with hyperglycemia Is this a current diagnosis for this admission?: Yes Plan: Nnamdi well under control (2) Abnormal LFTs Is this a current diagnosis for this admission?: Yes Plan: Since ultrasounds of the abdomen is stable (3) Thrombocytopenia Is this a current diagnosis for this admission?: Yes Plan: Patient seen by the internal medicine physician in the past but no sign of any CML and no sign of any malignancy most likely due to the platelet clumping (4) Atrial fibrillation Qualifiers: Atrial fibrillation type: chronic Qualified Code(s): I48.2 - Chronic atrial fibrillation Is this a current diagnosis for this admission?: Yes Plan: Continues to Eliquis (5) Cardiomyopathy Qualifiers: Cardiomyopathy type: unspecified Qualified Code(s): I42.9 - Cardiomyopathy, unspecified Is this a current diagnosis for this admission?: Yes Plan: Continues to Lasix (6) Hyperlipidemia Qualifiers: Hyperlipidemia type: unspecified Qualified Code(s): E78.5 - Hyperlipidemia, unspecified Is this a current diagnosis for this admission?: Yes Plan: Unable to take any statin due to the rhabdomyolysis (7) Hypertension Qualifiers: Hypertension type: essential hypertension Qualified Code(s): I10 - Essential (primary) hypertension Is this a current diagnosis for this admission?: Yes Plan: Mr. current medications (8) Impaired ambulation Is this a current diagnosis for this admission?: Yes Plan: Physical therapy evaluations (9) Lymphedema Is this a current diagnosis for this admission?: Yes Plan: Elevate the legs on the Lasix (10) Weakness Is this a current diagnosis for this admission?: Yes Plan: Physical therapy evaluations - Time Time Spent with patient: 15-24 minutes Medications reviewed and adjusted accordingly: Yes Anticipated discharge: SNF Within: Other - Plan Summary Plan Summary: Patient's mobility is very poor Expectation of the improve the mobility is not going to be happen due to the overall conditions with the advanced age Patients definitely get a benefit for the long-term rehabs Family already refused to take care of him because of the patient's are very hard to difficult to manage at home's Waiting for the bed availability
[2019-03-25] MEDS: INSULIN LISPRO 100 UNIT/ML 3 ML VIAL SUBCUT SCH ×3 (11:24→17:49)
[2019-03-25] MEDS: METOPROLOL SUCCINATE 25 MG TAB.SR.24H PO SCH (12:17)
[2019-03-25] MEDS: DILTIAZEM HCL 120 MG CAP.SR.24H PO SCH (12:17)
[2019-03-25] MEDS: DOCUSATE SODIUM 100 MG CAPSULE PO SCH ×2 (12:17→17:48)
[2019-03-25] MEDS: APIXABAN 2.5 MG TABLET PO SCH ×2 (12:17→17:48)
[2019-03-25] MEDS: FUROSEMIDE 40 MG TABLET PO SCH (12:17)
[2019-03-25] MEDS: ASPIRIN 81 MG TABLET, ENT COATED PO SCH (12:17)
[2019-03-25] MEDS: ALLOPURINOL 300 MG TABLET PO SCH (12:19)
[2019-03-25] MEDS: DIGOXIN 0.125 MG TABLET PO SCH (12:19)
[2019-03-25] MEDS: SITAGLIPTIN PHOSPHATE 50 MG TABLET PO SCH ×2 (12:19→17:48)
[2019-03-25] MEDS: OMEGA-3 ACID ETHYL ESTERS 1 GM CAPSULE PO SCH (12:26)
[2019-03-25 16:47] VITALS: BP 124/78
== END 2019-03-25 19:30 ==
LOC: 4N 12:42 → INTOOBSV 12:42
PROVIDERS: ADMIT Family Medicine; ATTEND Family Medicine
DX: E11.65 Type 2 diabetes mellitus with hyperglycemia (principal); R94.5 Abnormal results of liver function studies; D69.6 Thrombocytopenia, unspecified; I48.2 Chronic atrial fibrillation; I42.9 Cardiomyopathy, unspecified; E78.5 Hyperlipidemia, unspecified; I11.0 Hypertensive heart disease with heart failure; I50.9 Heart failure, unspecified; R26.89 Other abnormalities of gait and mobility; I89.0 Lymphedema, not elsewhere classified; R53.1 Weakness; R19.5 Other fecal abnormalities; I25.10 Atherosclerotic heart disease of native coronary artery without angina pectoris; E11.51 Type 2 diabetes mellitus with diabetic peripheral angiopathy without gangrene; E11.21 Type 2 diabetes mellitus with diabetic nephropathy; R06.01 Orthopnea; K59.00 Constipation, unspecified; Z79.899 Other long term (current) drug therapy; Z79.82 Long term (current) use of aspirin; Z79.4 Long term (current) use of insulin; Z95.0 Presence of cardiac pacemaker; Z79.02 Long term (current) use of antithrombotics/antiplatelets; Z87.19 Personal history of other diseases of the digestive system; Z98.890 Other specified postprocedural states; Z63.8 Other specified problems related to primary support group
CPT/HCPCS: 36415 ×5; 87086 ×2; 82962 ×11; 80162; 83735; 85025 ×5; 82272; 80048 ×3; 80053 ×3; 83036; 83880; 76700; 93005; 93010; 94660 ×3; 97530; 97110 ×4; 97116 ×4; 97163; G0378 ×11; G0379; A9270 ×121; J3490 ×2; J1815

== ENCOUNTER 2019-06-01 14:22 | Observation (INO) | payer MEDICARE, OTHER ==
--- NOTE | 2019-06-01 15:47 | ER Document Report ---
ED Medical Screen (RME) - General Chief Complaint: Edema Stated Complaint: WEIGHT GAIN Time Seen by Provider: 06/01/19 15:41 Primary Care Provider: DES MCMAHAN MD [Primary Care Provider] - Follow up as needed Mode of Arrival: Medic Information source: Patient, Emergency Med Personnel, Outside Facility Records Notes: This 84-year-old male presents from the [facility] via EMS for complaints of recent weight gain. 15 pounds in 3 days. Patient has history of CHF cardiomyopathy atrial fib and diabetes. Patient also has a sore on the bottom of his left foot. Patient is in good mood laughing no distress respiratory rate even unlabored. I have greeted and performed a rapid initial assessment of this patient. A comprehensive ED assessment and evaluation of the patient, analysis of test results and completion of the medical decision making process will be conducted by additional ED providers. Dictation of this chart was performed using voice recognition software; therefore, there may be some unintended grammatical errors. TRAVEL OUTSIDE OF THE [place] IN LAST 30 DAYS: No - Related Data Allergies/Adverse Reactions: statins Allergy (Uncoded 06/01/19 15:42) Past Medical History - Social History Chew tobacco use (# tins/day): No Frequency of alcohol use: None Drug Abuse: None - Past Medical History Cardiac Medical History: Reports: Hx Atrial Fibrillation, Hx Congestive Heart Failure, Hx Coronary Artery Disease, Hx Hypercholesterolemia, Hx Hypertension Denies: Hx Heart Attack Pulmonary Medical History: Reports: Hx Bronchitis Denies: Hx Asthma, Hx COPD, Hx Pneumonia Neurological Medical History: Denies: Hx Cerebrovascular Accident, Hx Seizures Endocrine Medical History: Reports: Hx Diabetes Mellitus Type 2 Renal/ Medical History: Denies: Hx Peritoneal Dialysis GI Medical History: Reports: Hx Gastroesophageal Reflux Disease Musculoskeltal Medical History: Reports Hx Arthritis Skin Medical History: Denies Hx MRSA Psychiatric Medical History: Reports: Hx Depression Infectious Medical History: Past Surgical History: Reports: Hx Orthopedic Surgery, Hx Pacemaker - Immunizations Immunizations up to date: Yes Hx Diphtheria, Pertussis, Tetanus Vaccination: Yes - pt thinks last tetanus was less than 5 years ago Physical Exam - Vital signs Vitals: Temp Pulse Resp BP Pulse Ox 97.9 F 59 L 16 111/60 98 06/01/19 14:37 06/01/19 14:37 06/01/19 14:37 06/01/19 14:37 06/01/19 14:37 Course - Vital Signs Vital signs: Temp Pulse Resp BP Pulse Ox 97.9 F 59 L 16 111/60 98 06/01/19 14:37 06/01/19 14:37 06/01/19 14:37 06/01/19 14:37 06/01/19 14:37 Doctor's Discharge - Discharge Referrals: DES MCMAHAN MD [Primary Care Provider] - Follow up as needed
[2019-06-01 16:15] LABS: ABSOLUTE BASOPHILS # (AUTO) 0.1 10^3/uL (0.0-0.2); ABSOLUTE EOSINOPHILS # (AUTO) 0.2 10^3/uL (0.0-0.6); ABSOLUTE LYMPHOCYTES (AUTO) 1.9 10^3/uL (0.5-4.7); ABSOLUTE MONOCYTES (AUTO) 0.7 10^3/uL (0.1-1.4); ABSOLUTE NEUT (AUTO) 3.9 10^3/uL (1.7-8.2); EOSINOPHILS % (AUTO) 2.9 % (0-6); HEMATOCRIT 46.6 % (37.9-51.0); HEMOGLOBIN 15.7 g/dL (13.5-17.0); LYMPHOCYTES % (AUTO) 27.4 % (13-45); MEAN CORPUSCULAR HEMOGLOBIN 31.4 pg (27.0-33.4); MEAN CORPUSCULAR HGB CONC 33.6 g/dL (32.0-36.0); MEAN CORPUSCULAR VOLUME 93 fl (80-97); MONOCYTES % (AUTO) 10.6 % (3-13); PLATELET COUNT 247 10^3/uL (150-450); RED BLOOD COUNT 4.99 10^6/uL (4.35-5.55); RED CELL DISTRIBUTION WIDTH 16.7 % (11.5-14.0); SEGMENTED NEUTROPHILS % (AUTO) 58.1 % (42-78); TOTAL CELLS COUNTED % (AUTO) 100 %; WHITE BLOOD COUNT 6.8 10^3/uL (4.0-10.5)
[2019-06-01 16:20] LABS: APPEARANCE,URINE CLEAR; BILIRUBIN,URINE NEGATIVE (NEGATIVE); COLOR,URINE YELLOW; GLUCOSE, URINE NEGATIVE (NEGATIVE); KETONES,URINE NEGATIVE (NEGATIVE); LEUKOCYTE ESTERASE,URINE NEGATIVE (NEGATIVE); NITRITE,URINE NEGATIVE (NEGATIVE); PROTEIN,URINE NEGATIVE (NEGATIVE); URINE SPECIFIC GRAVITY 1.009; UROBILINOGEN,URINE NEGATIVE mg/dL (<2.0)
[2019-06-01 16:25] LABS: INTERNATIONAL RATION (INR) 1.22; PROTHROMBIN TIME 15.5 SEC (11.4-15.4)
[2019-06-01 16:26] LABS: PARTIAL THROMBOPLASTIN TIME 36.6 SEC (23.5-35.8)
--- NOTE | 2019-06-01 16:30 | RADIOLOGY REPORT (SQ) ---
EXAM DESCRIPTION: CHEST 2 VIEWS COMPLETED DATE/TIME: 06/01/2019 4:17 pm REASON FOR STUDY: hx chf recent wt gain COMPARISON: 10/06 07/25 EXAM PARAMETERS: NUMBER OF VIEWS: two views TECHNIQUE: Digital Frontal and Lateral radiographic views of the chest acquired. RADIATION DOSE: NA LIMITATIONS: none FINDINGS: LUNGS AND PLEURA: No opacities, masses or pneumothorax. No pleural effusion. MEDIASTINUM AND HILAR STRUCTURES: No masses or contour abnormalities. HEART AND VASCULAR STRUCTURES: Enlarged cardiac silhouette, stable. Ectatic atherosclerotic thoracic aorta. BONES: No acute findings. HARDWARE: Left-sided cardiac pacer with lead overlying right ventricle. OTHER: No other significant finding. IMPRESSION: Enlarged cardiac silhouette, stable. No overt edema or other evidence of acute cardiopu lmonary process. TECHNICAL DOCUMENTATION: JOB ID: [id number] [employer]- All Rights Reserved Reading location - IP/workstation name: [email or web address]
[2019-06-01 16:39] LABS: ALANINE AMINOTRANSFERASE 29 U/L (21-72); ALBUMIN 4.1 g/dL (3.5-5.0); ALKALINE PHOSPHATASE 114 U/L (38-126); ANION GAP 12 (5-19); ASPARTATE AMINO TRANSFERASE 37 U/L (17-59); BILIRUBIN,DIRECT 0.3 mg/dL (0.0-0.4); BILIRUBIN,TOTAL 0.4 mg/dL (0.2-1.3); BLOOD UREA NITROGEN 19 mg/dL (7-20); CALCIUM 9.2 mg/dL (8.4-10.2); CARBON DIOXIDE 27 mmol/L (22-30); CHLORIDE 103 mmol/L (98-107); CREATINE KINASE 41 U/L (55-170); GLUCOSE 132 mg/dL (75-110); POTASSIUM 4.1 mmol/L (3.6-5.0); SODIUM 141.5 mmol/L (137-145); TOTAL PROTEIN 7.9 g/dL (6.3-8.2)
[2019-06-01 16:49] LABS: NT PRO BNP 1170 pg/mL (<450)
[2019-06-01 16:54] LABS: TROPONIN I < 0.012 ng/mL
[2019-06-01] MEDS ORDERED: FUROSEMIDE INJ/PF 40 MG/4 ML SDV IV ONE (21:22)
--- NOTE | 2019-06-01 21:41 | ER Document Report ---
ED General - General Chief Complaint: Edema Stated Complaint: WEIGHT GAIN Time Seen by Provider: 06/01/19 15:41 Primary Care Provider: DES MCMAHAN MD [EMERITUS] - Follow up as needed Mode of Arrival: Medic TRAVEL OUTSIDE OF THE [place] IN LAST 30 DAYS: No - HPI Notes: Patient is a 84-year-old male that presents to the emergency department for chief complaint of peripheral edema. Patient presents from assisted living facility. He reports 15 pound weight gain over the last 3 days. He does have a history of congestive heart failure and takes Lasix 40 mg p.o. once daily. He has not missed any medications. He denies any associated shortness of breath, cough, dyspnea, chest pain fevers and chills. He states he feels very swollen but otherwise is doing okay. He does ambulate with a walker. Patient does report decrease in urination but denies any dysuria. Past Medical History: Congestive heart failure, A. fib, dementia Past Surgical History: Pacemaker Social History: Lives in assisted living. Denies tobacco and alcohol use Family History: Reviewed and noncontributory for presenting illness Allergies: Reviewed, see documented allergy list. REVIEW OF SYSTEMS: CONSTITUTIONAL : No fever No chills No diaphoresis No recent illness EENT: No vision changes No congestion No sore throat CARDIOVASCULAR: No chest pain No palpitations RESPIRATORY: No shortness of breath No cough No difficulty breathing GASTROINTESTINAL: No abdominal pain No nausea No vomiting No diarrhea GENITOURINARY: No dysuria No hematuria No difficulty urinating MUSCULOSKELETAL: No back pain leg pain Leg edema No arm pain SKIN: No rashes No lesions LYMPHATIC: No swollen, enlarged glands. NEUROLOGICAL: No lightheadedness No headache No weakness No paresthesias PSYCHIATRIC: No anxiety No depression PHYSICAL EXAMINATION: Vital signs reviewed, nursing noted reviewed. GENERAL: Well-appearing, overweight and in no acute distress. HEAD: Atraumatic, normocephalic. EYES: Eyes appear normal, extraocular movements intact, sclera anicteric, conjunctiva are normal. ENT: nares patent, oropharynx clear without exudates. Moist mucous membranes. NECK: Normal range of motion, supple without lymphadenopathy LUNGS: Breath sounds clear to auscultation bilaterally and equal. No wheezes rales or rhonchi. HEART: Regular rate and rhythm without murmurs ABDOMEN: Soft, nontender, normoactive bowel sounds. No rebound, guarding, or rigidity. No masses appreciated. EXTREMITIES: Nontender, good range of motion +2 pitting edema bilateral lower extremities NEUROLOGICAL: Oriented to person and place only. Moves all extremities spontaneously Motor and sensory grossly intact on exam. PSYCH: Normal mood, normal affect. SKIN: Warm, Dry, normal turgor, right medial heel superficial pressure ulcer - Related Data Allergies/Adverse Reactions: statins Allergy (Uncoded 06/01/19 15:42) Past Medical History - General Information source: Patient, Emergency Med Personnel, Outside Facility Records - Social History Smoking Status: Never Smoker Chew tobacco use (# tins/day): No Frequency of alcohol use: None Drug Abuse: None Family History: Reviewed & Not Pertinent Patient has suicidal ideation: No Patient has homicidal ideation: No - Past Medical History Cardiac Medical History: Reports: Hx Atrial Fibrillation, Hx Congestive Heart Failure, Hx Coronary Artery Disease, Hx Hypercholesterolemia, Hx Hypertension Denies: Hx Heart Attack Pulmonary Medical History: Reports: Hx Bronchitis Denies: Hx Asthma, Hx COPD, Hx Pneumonia Neurological Medical History: Denies: Hx Cerebrovascular Accident, Hx Seizures Endocrine Medical History: Reports: Hx Diabetes Mellitus Type 2 Renal/ Medical History: Denies: Hx Peritoneal Dialysis GI Medical History: Reports: Hx Gastroesophageal Reflux Disease Musculoskeletal Medical History: Reports Hx Arthritis Skin Medical History: Denies Hx MRSA Psychiatric Medical History: Reports: Hx Depression Infectious Medical History: Past Surgical History: Reports: Hx Orthopedic Surgery, Hx Pacemaker - Immunizations Immunizations up to date: Yes Hx Diphtheria, Pertussis, Tetanus Vaccination: Yes - pt thinks last tetanus was less than 5 years ago Hx Pneumococcal Vaccination: 08/17/09 Physical Exam - Vital signs Vitals: Temp Pulse Resp BP Pulse Ox 97.9 F 59 L 16 111/60 98 06/01/19 14:37 06/01/19 14:37 06/01/19 14:37 06/01/19 14:37 06/01/19 14:37 Course - Re-evaluation Re-evalutation: 06/01/19 21:40 Vitals reviewed. Nursing notes reviewed. Patient appears fluid overloaded and has a significant amount of peripheral edema. He does have an ulcer to his rig ht heel which is superficial with no acute signs of infection. Patient's lab work shows elevation in his BNP however chest x-ray shows no pulmonary vascular congestion. He is currently oxygenating well on room air and in no acute respiratory distress. Patient takes Lasix 40 mg p.o. daily and was given 40 mg IV in the emergency room. His glucose is controlled at 132. The remainder of his work-up is unremarkable. Laboratory 06/01/19 06/01/19 06/01/19 16:05 16:05 16:05 WBC 6.8 RBC 4.99 Hgb 15.7 Hct 46.6 MCV 93 MCH 31.4 MCHC 33.6 RDW 16.7 H Plt Count 247 Seg Neutrophils % 58.1 Lymphocytes % 27.4 Monocytes % 10.6 Eosinophils % 2.9 Basophils % 1.0 Absolute Neutrophils 3.9 Absolute Lymphocytes 1.9 Absolute Monocytes 0.7 Absolute Eosinophils 0.2 Absolute Basophils 0.1 PT 15.5 H INR 1.22 APTT 36.6 H Sodium 141.5 Potassium 4.1 Chloride 103 Carbon Dioxide 27 Anion Gap 12 BUN 19 Creatinine 1.20 Est GFR ( Amer) > 60 Est GFR (Non-Af Amer) 57 L Glucose 132 H Calcium 9.2 Total Bilirubin 0.4 Direct Bilirubin 0.3 Neonat Total Bilirubin Not Reportable Neonat Direct Bilirubin Not Reportable Neonat Indirect Bili Not Reportable AST 37 ALT 29 Alkaline Phosphatase 114 Creatine Kinase 41 L Troponin I NT-Pro-B Natriuret Pep Total Protein 7.9 Albumin 4.1 Urine Color Urine Appearance Urine pH Ur Specific [place] Urine Protein Urine Glucose (UA) Urine Ketones Urine Blood Urine Nitrite Urine Bilirubin Urine Urobilinogen Ur Leukocyte Esterase Urine WBC (Auto) U Hyaline Cast (Auto) Urine Mucus (Auto) Urine Ascorbic Acid 06/01/19 06/01/19 16:05 16:05 WBC RBC Hgb Hct MCV MCH MCHC RDW Plt Count Seg Neutrophils % Lymphocytes % Monocytes % Eosinophils % Basophils % Absolute Neutrophils Absolute Lymphocytes Absolute Monocytes Absolute Eosinophils Absolute Basophils PT INR APTT Sodium Potassium Chloride Carbon Dioxide Anion Gap BUN Creatinine Est GFR ( Amer) Est GFR (Non-Af Amer) Glucose Calcium Total Bilirubin Direct Bilirubin Neonat Total Bilirubin Neonat Direct Bilirubin Neonat Indirect Bili AST ALT Alkaline Phosphatase Creatine Kinase Troponin I < 0.012 NT-Pro-B Natriuret Pep 1170 H Total Protein Albumin Urine Color YELLOW Urine Appearance CLEAR Urine pH 5.0 Ur Specific [place] 1.009 Urine Protein NEGATIVE Urine Glucose (UA) NEGATIVE Urine Ketones NEGATIVE Urine Blood NEGATIVE Urine Nitrite NEGATIVE Urine Bilirubin NEGATIVE Urine Urobilinogen NEGATIVE Ur Leukocyte Esterase NEGATIVE Urine WBC (Auto) 1 U Hyaline Cast (Auto) 6 Urine Mucus (Auto) RARE Urine Ascorbic Acid NEGATIVE 06/01/19 22:46 I did expand to the family that he is in no respiratory distress and breathing well on room air. Patient is requiring further diuresis but recommended outpatient management. Patient's daughter became very angry with me when I suggested that he be discharged home. She is refusing to allow me to discharge this patient. She would like me to contact Dr. Caraballo and admit him. Dr. Walker is covering for this patient and agrees to observation stay for IV diuresis. Patient admitted for further diuresis. - Vital Signs Vital signs: Temp Pulse Resp BP Pulse Ox 97.9 F 59 L 16 111/60 98 06/01/19 14:37 06/01/19 14:37 06/01/19 14:37 06/01/19 14:37 06/01/19 14:37 - Laboratory Result Diagrams: 06/01/19 16:05 06/01/19 16:05 Laboratory results interpreted by me: 06/01/19 06/01/19 06/01/19 16:05 16:05 16:05 RDW 16.7 H PT 15.5 H APTT 36.6 H Est GFR (Non-Af Amer) 57 L Glucose 132 H Creatine Kinase 41 L NT-Pro-B Natriuret Pep 06/01/19 16:05 RDW PT APTT Est GFR (Non-Af Amer) Glucose Creatine Kinase NT-Pro-B Natriuret Pep 1170 H - EKG Interpretation by Me Additional EKG results interpreted by me: 06/01/19 21:40 Interpreted by myself 12/18/2007: Ventricularly paced, rate 60, left axis, no ST elevation Discharge - Discharge Clinical Impression: Peripheral edema Condition: Stable Disposition: ADMITTED OBSERVATION Admitting Provider: Denise Unit Admitted: Telemetry Referrals: DES MCMAHAN MD [EMERITUS] - Follow up as needed
[2019-06-01 23:57] LABS: FREE T4 (FREE THYROXINE) 1.27 ng/dL (0.78-2.19)
[2019-06-02 00:04] LABS: CREATINE KINASE MB 0.51 ng/mL (<4.55)
[2019-06-02 00:08] LABS: TROPONIN I < 0.012 ng/mL
[2019-06-02 00:11] LABS: THYROID STIMULATING HORMONE 4.21 uIU/mL (0.47-4.68)
[2019-06-02 05:28] LABS: ABSOLUTE BASOPHILS # (AUTO) 0.1 10^3/uL (0.0-0.2); ABSOLUTE EOSINOPHILS # (AUTO) 0.2 10^3/uL (0.0-0.6); ABSOLUTE LYMPHOCYTES (AUTO) 1.5 10^3/uL (0.5-4.7); ABSOLUTE MONOCYTES (AUTO) 0.5 10^3/uL (0.1-1.4); ABSOLUTE NEUT (AUTO) 3.2 10^3/uL (1.7-8.2); BASOPHILS % (AUTO) 1.2 % (0-2); EOSINOPHILS % (AUTO) 3.5 % (0-6); HEMATOCRIT 45.6 % (37.9-51.0); HEMOGLOBIN 15.3 g/dL (13.5-17.0); LYMPHOCYTES % (AUTO) 27.8 % (13-45); MEAN CORPUSCULAR HEMOGLOBIN 31.1 pg (27.0-33.4); MEAN CORPUSCULAR HGB CONC 33.7 g/dL (32.0-36.0); MEAN CORPUSCULAR VOLUME 93 fl (80-97); MONOCYTES % (AUTO) 9.5 % (3-13); PLATELET COUNT 222 10^3/uL (150-450); RED BLOOD COUNT 4.93 10^6/uL (4.35-5.55); RED CELL DISTRIBUTION WIDTH 16.1 % (11.5-14.0); TOTAL CELLS COUNTED % (AUTO) 100 %; WHITE BLOOD COUNT 5.5 10^3/uL (4.0-10.5)
[2019-06-02 05:43] LABS: ALANINE AMINOTRANSFERASE 31 U/L (21-72); ALKALINE PHOSPHATASE 103 U/L (38-126); ANION GAP 10 (5-19); ASPARTATE AMINO TRANSFERASE 33 U/L (17-59); BILIRUBIN,DIRECT 0.3 mg/dL (0.0-0.4); BILIRUBIN,TOTAL 0.6 mg/dL (0.2-1.3); BLOOD UREA NITROGEN 19 mg/dL (7-20); CALCIUM 9.3 mg/dL (8.4-10.2); CARBON DIOXIDE 28 mmol/L (22-30); CHLORIDE 104 mmol/L (98-107); CREATINE KINASE 53 U/L (55-170); GLUCOSE 132 mg/dL (75-110); SODIUM 141.9 mmol/L (137-145); TOTAL PROTEIN 7.6 g/dL (6.3-8.2)
[2019-06-02 05:50] LABS: CREATINE KINASE MB 0.66 ng/mL (<4.55)
[2019-06-02 06:33] LABS: TROPONIN I < 0.012 ng/mL
--- NOTE | 2019-06-02 07:41 | EKG REPORT ---
SEVERITY:- ABNORMAL ECG - AFIB/FLUT AND V-PACED COMPLEXES : Confirmed by: Kimani Sequeira MD 02-Jun-2019 07:40:52
[2019-06-02] MEDS ORDERED: ENOXAPARIN SODIUM INJ 40 MG/0.4 ML DISP.SYRIN SUBCUT SCH (10:00)
[2019-06-02] MEDS: FUROSEMIDE INJ/PF 40 MG/4 ML SDV IV SCH (10:22)
[2019-06-02] MEDS ORDERED: DOCUSATE SODIUM 100 MG CAPSULE PO PRN (10:33)
[2019-06-02] MEDS ORDERED: POLYETHYLENE GLYCOL 3350 POWDER 17 GM/1 PACKET PO PRN (10:33)
[2019-06-02] MEDS ORDERED: GLUCAGON,HUMAN RECOMB 1 MG INJ IM PRN (10:35)
[2019-06-02] MEDS ORDERED: DEXTROSE 40% GEL 15 GM TUBE PO PRN ×2 (10:35)
[2019-06-02] MEDS ORDERED: DEXTROSE 50%-WATER 25 GM/50 ML DISP.SYRIN IV PRN ×2 (10:35)
--- NOTE | 2019-06-02 11:20 | PDOC H&P ---
History of Present Illness Admission Date/PCP: 06/01/19 22:55 DHEERAJ DENSON MD Patient complains of: Leg edema History of Present Illness: DARLING NAVARRO is a 84 year old male This is a 84-year-old male with a history of the type 2 diabetes history of the congestive heart failure coronary artery disease currently see a Dr. Sequeira and a history of the chronic lymphedema and chronic delivering conditions and chronic Eliquis came to the emergency department with a complaining of her leg edema Patient's initial work-up is pretty much all stable patient's chest x-ray is clear NT BNP also stable Patients at this point decided to admit for further evaluations Patient is denied any chest pain to than any shortness of the breath Patient is not wearing the elastic stockings Patient seen by the vascular surgery Patient had a several hospital admissions due to this condition as per the chronic debilitating not able to walk much Past Medical History Cardiac Medical History: Reports: Atrial Fibrillation, Congestive Heart Failure, Coronary Artery Disease, Hyperlipidema, Hypertension Denies: Myocardial Infarction Pulmonary Medical History: Reports: Bronchitis Denies: Asthma, Chronic Obstructive Pulmonary Disease (COPD), Pneumonia Neurological Medical History: Denies: Seizures Endocrine Medical History: Reports: Diabetes Mellitus Type 2 GI Medical History: Reports: Gastroesophageal Reflux Disease Musculoskeltal Medical History: Reports: Arthritis Psychiatric Medical History: Reports: Dementia, Depression Hematology: Denies: Anemia Past Surgical History Past Surgical History: Reports: Orthopedic Surgery, Pacemaker Social History Smoking Status: Never Smoker Frequency of Alcohol Use: None Hx Recreational Drug Use: No Drugs: None Hx Prescription Drug Abuse: No Family History Family History: Reviewed & Not Pertinent Parental Family History Reviewed: Yes Children Family History Reviewed: Yes Sibling(s) Family History Reviewed.: Yes Medication/Allergy Home Medications: Allopurinol [Zyloprim 300 mg Tablet] 300 mg PO DAILY 06/02/19 Apixaban [Eliquis 5 mg Tablet] 5 mg PO BID 06/02/19 Aspirin [Ecotrin 81 mg EC Tablet] 81 mg PO DAILY 06/02/19 Digoxin [Lanoxin 0.125 mg Tablet] 0.125 mg PO DAILY 06/02/19 Diltiazem HCl [Cardizem Cd 120 mg Capsule] 1 cap.sr PO DAILY 06/02/19 Docusate Sodium [Colace 100 mg Capsule] 100 mg PO BIDP PRN 06/02/19 Furosemide [Lasix 40 mg Tablet] 40 mg PO DAILY 06/02/19 Insulin Aspart [Novolog Insulin 100 Unit/1 ml 10 ml] 0 unit SUBCUT .SLD SCALE 06/02/19 Insulin Detemir [Levemir] 15 unit SQ QHS 06/02/19 Linagliptin [Tradjenta] 5 mg PO DAILY 06/02/19 Metoprolol Succinate [Toprol Xl 25 mg Tab.sr] 25 mg PO DAILY 06/02/19 [place]-3S/Dha/Epa/Fish Oil [Fish Oil 1,200 mg Softgel] 1 each PO DAILY 06/02/19 Polyethylene Glycol 3350 [Miralax Powder 17 gm/Packet] 1 packet PO DAILYP PRN 06/02/19 Sulfamethoxazole/Trimethoprim [Bactrim 400-80 mg Tablet] 1 each PO Q12 06/02/19 Allergies/Adverse Reactions: statins Allergy (Uncoded 06/01/19 15:42) Review of Systems Constitutional: ABSENT: chills, fever(s), headache(s), weight gain, weight loss Eyes: ABSENT: visual disturbances Ears: ABSENT: hearing changes Cardiovascular: ABSENT: chest pain, dyspnea on exertion, edema, orthropnea, palpitations Respiratory: ABSENT: cough, hemoptysis Gastrointestinal: ABSENT: abdominal pain, constipation, diarrhea, hematemesis, hematochezia, nausea, vomiting Genitourinary: ABSENT: dysuria, hematuria Musculoskeletal: ABSENT: joint swelling Integumentary: ABSENT: rash, wounds Neurological: ABSENT: abnormal gait, abnormal speech, confusion, dizziness, focal weakness, syncope Psychiatric: ABSENT: anxiety, depression, homidical ideation, suicidal ideation Endocrine: ABSENT: cold intolerance, heat intolerance, menstrual abnormalities, polydipsia, polyuria Hematologic/Lymphatic: ABSENT: easy bleeding, easy bruising, lymphadenopathy Physical Exam Vital Signs: Temp Pulse Resp BP Pulse Ox 97.9 F 59 L 15 167/83 H 99 06/01/19 14:37 06/01/19 14:37 06/02/19 07:04 06/02/19 06:59 06/02/19 07:04 Intake & Output 06/01/19 06/02/19 06/03/19 06:59 06:59 06:59 Weight 92.4 kg General appearance: PRESENT: no acute distress, well-developed, well-nourished Head exam: PRESENT: atraumatic, normocephalic Eye exam: PRESENT: conjunctiva pink, EOMI, PERRLA. ABSENT: scleral icterus Ear exam: PRESENT: normal external ear exam Mouth exam: PRESENT: moist, tongue midline Neck exam: PRESENT: full ROM. ABSENT: carotid bruit, JVD, lymphadenopathy, thyromegaly Respiratory exam: PRESENT: clear to auscultation celso Cardiovascular exam: PRESENT: RRR. ABSENT: diastolic murmur, rubs, systolic murmur Vascular exam: PRESENT: normal capillary refill GI/Abdominal exam: PRESENT: normal bowel sounds, soft. ABSENT: distended, guarding, mass, organolmegaly, rebound, tenderness Rectal exam: PRESENT: deferred Extremities exam: PRESENT: pedal edema Neurological exam: PRESENT: alert, awake, oriented to person, oriented to place, oriented to time, oriented to situation, CN II-XII grossly intact. ABSENT: motor sensory deficit Psychiatric exam: PRESENT: appropriate affect, normal mood. ABSENT: homicidal ideation, suicidal ideation Skin exam: PRESENT: dry, intact, warm. ABSENT: cyanosis, rash Results Laboratory Results: 06/02/19 05:15 06/02/19 05:15 06/01/19 06/01/19 06/01/19 16:05 16:05 16:05 WBC 6.8 RBC 4.99 Hgb 15.7 Hct 46.6 MCV 93 MCH 31.4 MCHC 33.6 RDW 16.7 H Plt Count 247 Seg Neutrophils % 58.1 Lymphocytes % 27.4 Monocytes % 10.6 Eosinophils % 2.9 Basophils % 1.0 Absolute Neutrophils 3.9 Absolute Lymphocytes 1.9 Absolute Monocytes 0.7 Absolute Eosinophils 0.2 Absolute Basophils 0.1 Sodium 141.5 Potassium 4.1 Chloride 103 Carbon Dioxide 27 Anion Gap 12 BUN 19 Creatinine 1.20 Est GFR ( Amer) > 60 Est GFR (Non-Af Amer) 57 L Glucose 132 H Calcium 9.2 Magnesium Total Bilirubin 0.4 AST 37 ALT 29 Alkaline Phosphatase 114 Total Protein 7.9 Albumin 4.1 TSH Free T4 Urine Color YELLOW Urine Appearance CLEAR Urine pH 5.0 Ur Specific [place] 1.009 Urine Protein NEGATIVE Urine Glucose (UA) NEGATIVE Urine Ketones NEGATIVE Urine Blood NEGATIVE Urine Nitrite NEGATIVE Ur Leukocyte Esterase NEGATIVE Urine WBC (Auto) 1 06/01/19 06/01/19 06/02/19 16:05 16:05 05:15 WBC RBC Hgb Hct MCV MCH MCHC RDW Plt Count Seg Neutrophils % Lymphocytes % Monocytes % Eosinophils % Basophils % Absolute Neutrophils Absolute Lymphocytes Absolute Monocytes Absolute Eosinophils Absolute Basophils Sodium 141.9 Potassium 4.0 Chloride 104 Carbon Dioxide 28 Anion Gap 10 BUN 19 Creatinine 1.18 Est GFR ( Amer) > 60 Est GFR (Non-Af Amer) 59 L Glucose 132 H Calcium 9.3 Magnesium 2.1 Total Bilirubin 0.6 AST 33 ALT 31 Alkaline Phosphatase 103 Total Protein 7.6 Albumin 4.0 TSH 4.21 Free T4 1.27 Urine Color Urine Appearance Urine pH Ur Specific [place] Urine Protein Urine Glucose (UA) Urine Ketones Urine Blood Urine Nitrite Ur Leukocyte Esterase Urine WBC (Auto) 06/02/19 05:15 WBC 5.5 RBC 4.93 Hgb 15.3 Hct 45.6 MCV 93 MCH 31.1 MCHC 33.7 RDW 16.1 H Plt Count 222 Seg Neutrophils % 58.0 Lymphocytes % 27.8 Monocytes % 9.5 Eosinophils % 3.5 Basophils % 1.2 Absolute Neutrophils 3.2 Absolute Lymphocytes 1.5 Absolute Monocytes 0.5 Absolute Eosinophils 0.2 Absolute Basophils 0.1 Sodium Potassium Chloride Carbon Dioxide Anion Gap BUN Creatinine Est GFR ( Amer) Est GFR (Non-Af Amer) Glucose Calcium Magnesium Total Bilirubin AST ALT Alkaline Phosphatase Total Protein Albumin TSH Free T4 Urine Color Urine Appearance Urine pH Ur Specific [place] Urine Protein Urine Glucose (UA) Urine Ketones Urine Blood Urine Nitrite Ur Leukocyte Esterase Urine WBC (Auto) 06/01/19 06/01/19 06/01/19 16:05 16:05 16:05 Creatine Kinase 41 L Cancelled CK-MB (CK-2) Troponin I < 0.012 NT-Pro-B Natriuret Pep 1170 H 06/01/19 06/01/19 06/02/19 23:20 23:20 05:15 Creatine Kinase 42 L 53 L CK-MB (CK-2) 0.51 Troponin I < 0.012 NT-Pro-B Natriuret Pep 06/02/19 05:15 Creatine Kinase CK-MB (CK-2) 0.66 Troponin I < 0.012 NT-Pro-B Natriuret Pep Impressions: Chest X-Ray 06/01/19 15:45 IMPRESSION: Enlarged cardiac silhouette, stable. No overt edema or other evidence of acute cardiopulmonary process. Assessment & Plan - Diagnosis (1) Peripheral edema Is this a current diagnosis for this admission?: Yes Plan: Most likely a mild CHF with the ongoing chronic lymphedema We will give some IV Lasix instead of p.o. Lasix Try to put the elastic stockings but patient already had at home (2) Abnormal LFTs Is this a current diagnosis for this admission?: Yes Plan: Currently all stable (3) Acute systolic heart failure Is this a current diagnosis for this admission?: Yes Plan: Continue IV Lasix (4) Atrial fibrillation Qualifiers: Atrial fibrillation type: chronic Qualified Code(s): I48.2 - Chronic atrial fibrillation Is this a current diagnosis for this admission?: Yes Plan: on Eliquis (5) Cardiomyopathy Qualifiers: Cardiomyopathy type: unspecified Is this a current diagnosis for this admission?: Yes (6) Hypertension Qualifiers: Hypertension type: essential hypertension Is this a current diagnosis for this admission?: Yes (7) Lymphedema Is this a current diagnosis for this admission?: Yes Plan: Put the elastic stockings (8) Thrombocytopenia Is this a current diagnosis for this admission?: Yes Plan: Patient seen by the business functional analyst in the past no need for further evaluations (9) Weakness Is this a current diagnosis for this admission?: Yes Plan: Physical therapy - Time Time Spent: 50 to 70 Minutes Medications reviewed and adjusted accordingly: Yes Anticipated discharge: SNF Within: Other - Inpatient Certification Based on my medical assessment, after consideration of the patient's comorbidities, presenting symptoms, or acuity I expect that the services needed warrant INPATIENT care.: Yes I certify that my determination is in accordance with my understanding of Medicare's requirements for reasonable and necessary INPATIENT services [42 CFR 412.3e].: Yes Medical Necessity: Failure to Improve With Outpatient Therapy, Need Close Monitoring Due to Risk of Patient Decompensation Post Hospital Care: D/C Auto Leasing Manager Documentation - Plan Summary Plan Summary: Admit the patient's
[2019-06-02] MEDS: OMEGA-3 ACID ETHYL ESTERS 1 GM CAPSULE PO SCH (11:45)
[2019-06-02] MEDS: SITAGLIPTIN PHOSPHATE 50 MG TABLET PO SCH (11:45)
[2019-06-02] MEDS: INSULIN LISPRO 100 UNIT/ML 3 ML VIAL SUBCUT SCH ×3 (11:46→21:53)
[2019-06-02 12:00] LABS: CREATINE KINASE MB 0.55 ng/mL (<4.55)
[2019-06-02 12:02] LABS: TROPONIN I < 0.012 ng/mL
[2019-06-02] MEDS: APIXABAN 5 MG TABLET PO SCH (17:17)
[2019-06-02] MEDS ORDERED: INSULIN GLARGINE,HUM.REC.ANLOG 1,000 UNIT/10 ML VIAL SUBCUT SCH ×2 (22:00)
[2019-06-02] MEDS ORDERED: INSULIN DETEMIR 15 UNIT SQ SCH (22:00)
[2019-06-02] MEDS ORDERED: INSULIN GLARGINE,HUM.REC.ANLOG 1,000 UNIT/10 ML VIAL (PYX) SUBCUT ONE (22:03)
[2019-06-03 05:38] LABS: ABSOLUTE EOSINOPHILS # (AUTO) 0.2 10^3/uL (0.0-0.6); ABSOLUTE LYMPHOCYTES (AUTO) 1.6 10^3/uL (0.5-4.7); ABSOLUTE MONOCYTES (AUTO) 0.5 10^3/uL (0.1-1.4); ABSOLUTE NEUT (AUTO) 2.5 10^3/uL (1.7-8.2); BASOPHILS % (AUTO) 0.9 % (0-2); HEMATOCRIT 43.7 % (37.9-51.0); HEMOGLOBIN 14.7 g/dL (13.5-17.0); LYMPHOCYTES % (AUTO) 32.8 % (13-45); MEAN CORPUSCULAR HEMOGLOBIN 30.9 pg (27.0-33.4); MEAN CORPUSCULAR HGB CONC 33.6 g/dL (32.0-36.0); MEAN CORPUSCULAR VOLUME 92 fl (80-97); PLATELET COUNT 211 10^3/uL (150-450); RED BLOOD COUNT 4.75 10^6/uL (4.35-5.55); RED CELL DISTRIBUTION WIDTH 16.3 % (11.5-14.0); SEGMENTED NEUTROPHILS % (AUTO) 52.3 % (42-78); TOTAL CELLS COUNTED % (AUTO) 100 %; WHITE BLOOD COUNT 4.8 10^3/uL (4.0-10.5)
--- NOTE | 2019-06-03 08:24 | PDOC TRANSFER SUMMARY ---
General - Admit/Disc Date/PCP Admission Date/Primary Care Provider: 06/01/19 22:55 DHEERAJ DENSON MD Discharge Date: 06/03/19 - Discharge Diagnosis (1) Peripheral edema Is this a current diagnosis for this admission?: Yes Summary: Currently all resolved (2) Abnormal LFTs Is this a current diagnosis for this admission?: Yes Summary: Currently all stable (3) Acute systolic heart failure Is this a current diagnosis for this admission?: Yes Summary: Continues to Lasix 40 mg p.o. daily and follow with the outpatients Dr. Sequeira (4) Atrial fibrillation Is this a current diagnosis for this admission?: Yes Summary: Continues to Eliquis (5) Cardiomyopathy Is this a current diagnosis for this admission?: Yes (6) Hypertension Is this a current diagnosis for this admission?: Yes Summary: Currently all stable (7) Lymphedema Is this a current diagnosis for this admission?: Yes Summary: Continues to current medications and also do the elastic stocking every day and elevate the legs (8) Thrombocytopenia Is this a current diagnosis for this admission?: Yes (9) Weakness Is this a current diagnosis for this admission?: Yes Summary: Continues to physical therapy - Additional Information Discharge Diet: Cardiac, Diabetic Discharge Activity: Activity As Tolerated, Balance Activity w/Rest, Weigh Daily Home Medications: Allopurinol [Zyloprim 300 mg Tablet] 300 mg PO DAILY 06/02/19 Apixaban [Eliquis 5 mg Tablet] 5 mg PO BID 06/02/19 Aspirin [Ecotrin 81 mg EC Tablet] 81 mg PO DAILY 06/02/19 Digoxin [Lanoxin 0.125 mg Tablet] 0.125 mg PO DAILY 06/02/19 Diltiazem HCl [Cardizem Cd 120 mg Capsule] 1 cap.sr PO DAILY 06/02/19 Docusate Sodium [Colace 100 mg Capsule] 100 mg PO BIDP PRN 06/02/19 Furosemide [Lasix 40 mg Tablet] 40 mg PO DAILY 06/02/19 Insulin Detemir [Levemir] 15 unit SQ QHS 06/02/19 Linagliptin [Tradjenta] 5 mg PO DAILY 06/02/19 Metoprolol Succinate [Toprol Xl 25 mg Tab.sr] 25 mg PO DAILY 06/02/19 Hastings-3S/Dha/Epa/Fish Oil [Fish Oil 1,200 mg Softgel] 1 each PO DAILY 06/02/19 Polyethylene Glycol 3350 [Miralax Powder 17 gm/Packet] 1 packet PO DAILYP PRN 06/02/19 Sulfamethoxazole/Trimethoprim [Bactrim 400-80 mg Tablet] 1 each PO Q12 06/02/19 History of Present Illness Admission Date/PCP: 06/01/19 22:55 DHEERAJ DENSON MD History of Present Illness: DARLING NAVARRO is a 84 year old male This is a 84-year-old male with a history of the type 2 diabetes history of the congestive heart failure coronary artery disease currently see a Dr. Sequeira and a history of the chronic lymphedema and chronic delivering conditions and chronic Eliquis came to the emergency department with a complaining of her leg edema Patient's initial work-up is pretty much all stable patient's chest x-ray is clear NT BNP also stable Patients at this point decided to admit for further evaluations Patient is denied any chest pain to than any shortness of the breath Patient is not wearing the elastic stockings Patient seen by the vascular surgery Patient had a several hospital admissions due to this condition as per the chronic debilitating not able to walk much Hospital Course Hospital Course: This is a 84-year-old male presenting the emergency department for the peripheral edema and a mild congestive heart failure Patient was giving IV Lasix and elevate the leg and patient is pretty much all symptoms resolved Patient's chest x-ray other blood work is all stable Patient is back to the baseline's I think patient have a more problem with the chronic lymphedema and the patient is required to use a stocking and elevate the legs This points stable back to the normal the baseline and sent back to the rehab facilities and assisted living facilities Physical Exam Vital Signs: Temp Pulse Resp BP Pulse Ox 97.9 F 63 19 117/56 L 96 06/03/19 03:36 06/03/19 03:36 06/03/19 03:36 06/03/19 03:36 06/03/19 03:36 Intake & Output 06/02/19 06/03/19 06/04/19 06:59 06:59 06:59 Intake Total 474 Output Total 375 Balance 99 Weight 92.4 kg 93.5 kg General appearance: PRESENT: no acute distress, well-developed, well-nourished Head exam: PRESENT: atraumatic, normocephalic Eye exam: PRESENT: conjunctiva pink, EOMI, PERRLA. ABSENT: scleral icterus Ear exam: PRESENT: normal external ear exam Mouth exam: PRESENT: moist, tongue midline Neck exam: ABSENT: carotid bruit, JVD, lymphadenopathy, thyromegaly Respiratory exam: PRESENT: clear to auscultation celso. ABSENT: rales, rhonchi, wheezes Cardiovascular exam: PRESENT: RRR. ABSENT: diastolic murmur, rubs, systolic murmur Pulses: PRESENT: normal dorsalis pedis pul Vascular exam: PRESENT: normal capillary refill GI/Abdominal exam: PRESENT: normal bowel sounds, soft. ABSENT: distended, guarding, mass, organolmegaly, rebound, tenderness Rectal exam: PRESENT: deferred Extremities exam: PRESENT: full ROM. ABSENT: calf tenderness, clubbing, pedal edema Neurological exam: PRESENT: alert, awake, oriented to person, oriented to place, oriented to time, oriented to situation, CN II-XII grossly intact. ABSENT: motor sensory deficit Psychiatric exam: PRESENT: appropriate affect, normal mood. ABSENT: homicidal ideation, suicidal ideation Skin exam: PRESENT: dry, intact, warm. ABSENT: cyanosis, rash Results Laboratory Results: 06/03/19 04:59 06/02/19 05:15 06/03/19 04:59 WBC 4.8 RBC 4.75 Hgb 14.7 Hct 43.7 MCV 92 MCH 30.9 MCHC 33.6 RDW 16.3 H Plt Count 211 Seg Neutrophils % 52.3 Lymphocytes % 32.8 Monocytes % 10.0 Eosinophils % 4.0 Basophils % 0.9 Absolute Neutrophils 2.5 Absolute Lymphocytes 1.6 Absolute Monocytes 0.5 Absolute Eosinophils 0.2 Absolute Basophils 0.0 06/01/19 06/01/19 06/01/19 16:05 16:05 16:05 Creatine Kinase 41 L Cancelled CK-MB (CK-2) Troponin I < 0.012 NT-Pro-B Natriuret Pep 1170 H 06/01/19 06/01/19 06/02/19 23:20 23:20 05:15 Creatine Kinase 42 L 53 L CK-MB (CK-2) 0.51 Troponin I < 0.012 NT-Pro-B Natriuret Pep 06/02/19 06/02/19 06/02/19 05:15 11:15 11:15 Creatine Kinase 51 L CK-MB (CK-2) 0.66 0.55 Troponin I < 0.012 < 0.012 NT-Pro-B Natriuret Pep Impressions: Chest X-Ray 06/01/19 15:45 IMPRESSION: Enlarged cardiac silhouette, stable. No overt edema or other evidence of acute cardiopulmonary process. Transfer Plan - Time Spent with Patient Time spent with patient: Greater than 30 Minutes Qualifiers - * PATIENT BEING DISCHARGED WITH ANY OF THE FOLLOWING DIAGNOSIS: No VTE patient discharged on overlapping Therapy?: Yes Acute Heart Failure - Is this a Heart Failure Patient?: Yes Documentation of LVEF assessment?: Yes LVEF < 40%?: No- if no continue to question #3 a) Discharged on ACEI?: Yes b) Discharges on ARB?: No-document contraindications c) Discharged on ARNI?: No-Document Contraindications d) Discharged on evidence-based Beta jen(carvedilol, sustained release metoprolol succinate, or bisoprolol)?: Yes e) For LVEF <35%, discharged on Aldosterone antagonist?: N/A (LVEF > or = 35%) 3. 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
[2019-06-03] MEDS: INSULIN LISPRO 100 UNIT/ML 3 ML VIAL SUBCUT SCH ×2 (08:49→12:25)
[2019-06-03] MEDS ORDERED: DIGOXIN 0.125 MG TABLET PO SCH (10:00)
[2019-06-03] MEDS ORDERED: METOPROLOL SUCCINATE 25 MG TAB.SR.24H PO SCH (10:00)
[2019-06-03] MEDS ORDERED: (PENDING PHARMACY ID) (Linagliptin [Tradjenta] 5 MG) PO SCH (10:00)
[2019-06-03] MEDS ORDERED: (PENDING PHARMACY ID) (Omega-3s/Dha/Epa/Fish Oil [Fish Oil 1,200 Mg Softgel] 1 EACH) PO SCH (10:00)
[2019-06-03] MEDS ORDERED: DILTIAZEM HCL 120 MG CAP.SR.24H PO SCH (10:00)
[2019-06-03] MEDS ORDERED: ASPIRIN 81 MG TABLET, ENT COATED PO SCH (10:00)
[2019-06-03] MEDS ORDERED: ALLOPURINOL 300 MG TABLET PO SCH (10:00)
[2019-06-03] MEDS: FUROSEMIDE INJ/PF 40 MG/4 ML SDV IV SCH (10:45)
[2019-06-03] MEDS: SITAGLIPTIN PHOSPHATE 50 MG TABLET PO SCH (10:45)
[2019-06-03] MEDS: APIXABAN 5 MG TABLET PO SCH (10:45)
[2019-06-03] MEDS: OMEGA-3 ACID ETHYL ESTERS 1 GM CAPSULE PO SCH (10:45)
[2019-06-03 13:10] VITALS: BP 113/83
== END 2019-06-03 15:15 ==
LOC: ER 14:22 → EH 22:55 → 3W 06-02 20:38
PROVIDERS: ADMIT Family Medicine; ATTEND Family Medicine
DX: R60.0 Localized edema (principal); R94.5 Abnormal results of liver function studies; I11.0 Hypertensive heart disease with heart failure; I50.21 Acute systolic (congestive) heart failure; I48.2 Chronic atrial fibrillation; I42.9 Cardiomyopathy, unspecified; I89.0 Lymphedema, not elsewhere classified; D69.6 Thrombocytopenia, unspecified; R53.1 Weakness; R53.81 Other malaise; L89.619 Pressure ulcer of right heel, unspecified stage; F03.90 Unspecified dementia, unspecified severity, without behavioral disturbance, psychotic disturbance, mood disturbance, and anxiety; M19.90 Unspecified osteoarthritis, unspecified site; Z79.899 Other long term (current) drug therapy; Z79.82 Long term (current) use of aspirin; Z79.4 Long term (current) use of insulin; I25.10 Atherosclerotic heart disease of native coronary artery without angina pectoris; Z79.02 Long term (current) use of antithrombotics/antiplatelets; Z95.0 Presence of cardiac pacemaker
CPT/HCPCS: 93005; 99281; 36415 ×3; 84439; 82553 ×2; 82962 ×2; 82550 ×2; 83735; 84443; 85025 ×3; 85610; 85730; 80076; 80048; 80053; 81001; 84484 ×2; 83880; 71046; 93010; 97530; 97162; G0378 ×4; A9270 ×12; J1940 ×3; J1650; J3490; J1815

== ENCOUNTER 2019-07-26 12:23 | Emergency (ER) | payer MEDICARE, OTHER ==
[2019-07-26 14:41] LABS: ABSOLUTE BASOPHILS # (AUTO) 0.1 10^3/uL (0.0-0.2); ABSOLUTE EOSINOPHILS # (AUTO) 0.1 10^3/uL (0.0-0.6); ABSOLUTE LYMPHOCYTES (AUTO) 1.2 10^3/uL (0.5-4.7); ABSOLUTE MONOCYTES (AUTO) 0.7 10^3/uL (0.1-1.4); ABSOLUTE NEUT (AUTO) 11.5 10^3/uL (1.7-8.2); BASOPHILS % (AUTO) 0.6 % (0-2); EOSINOPHILS % (AUTO) 0.4 % (0-6); HEMATOCRIT 41.6 % (37.9-51.0); HEMOGLOBIN 13.9 g/dL (13.5-17.0); LYMPHOCYTES % (AUTO) 9.2 % (13-45); MEAN CORPUSCULAR HEMOGLOBIN 30.4 pg (27.0-33.4); MEAN CORPUSCULAR HGB CONC 33.4 g/dL (32.0-36.0); MEAN CORPUSCULAR VOLUME 91 fl (80-97); MONOCYTES % (AUTO) 4.9 % (3-13); PLATELET COUNT 160 10^3/uL (150-450); RED BLOOD COUNT 4.57 10^6/uL (4.35-5.55); RED CELL DISTRIBUTION WIDTH 17.3 % (11.5-14.0); SEGMENTED NEUTROPHILS % (AUTO) 84.9 % (42-78); TOTAL CELLS COUNTED % (AUTO) 100 %; WHITE BLOOD COUNT 13.5 10^3/uL (4.0-10.5)
[2019-07-26 15:03] LABS: ALBUMIN 3.6 g/dL (3.5-5.0); ALKALINE PHOSPHATASE 125 U/L (38-126); ANION GAP 9 (5-19); ASPARTATE AMINO TRANSFERASE 37 U/L (17-59); BILIRUBIN,DIRECT 0.2 mg/dL (0.0-0.4); BILIRUBIN,TOTAL 0.9 mg/dL (0.2-1.3); BLOOD UREA NITROGEN 30 mg/dL (7-20); CALCIUM 9.1 mg/dL (8.4-10.2); CARBON DIOXIDE 29 mmol/L (22-30); CHLORIDE 100 mmol/L (98-107); GLUCOSE 158 mg/dL (75-110); POTASSIUM 4.1 mmol/L (3.6-5.0)
[2019-07-26] MEDS ORDERED: CEFTRIAXONE INJ 1000 MG VIAL IV ONE (15:18)
--- NOTE | 2019-07-26 15:24 | ER Document Report ---
ED Extremity Problem, Lower - General Chief Complaint: Toe Injury Stated Complaint: WEAKNESS Time Seen by Provider: 07/26/19 13:10 Primary Care Provider: DHEERAJ DENSON MD [Primary Care Provider] - Follow up as needed Information source: Outside Facility Records Notes: Chief complaint: Redness of the lower extremity History of complain:( obtained from----patient) 84 years old male from snf was brought in today because of the redness they noticed over the both feet. And slight discoloration of the toe. With a known history of peripheral vascular disease. COPD. On hospice. No fever chills. No other history is available Onset: Possibly gradual Duration: Last few days Severity: Unknown Quality: Unknown Context: Peripheral vascular disease Exacerbating factor and relieving factors: Unknown REVIEW OF SYSTEMS: Due to dementia could not head any history PHYSICAL EXAMINATION: GENERAL: Not seems to be in any acute distress. HEAD: Atraumatic, normocephalic. EYES: Pupils equal round and reactive to light, extraocular movements intact, conjunctiva are normal. ENT: Nares patent, oropharynx clear without exudates. Moist mucous membranes. NECK: Normal range of motion, supple without lymphadenopathy LUNGS: Breath sounds clear to auscultation bilaterally and equal. No wheezes rales or rhonchi. No wheezing or rales. HEART: Regular rate and rhythm without murmurs ABDOMEN: Examination of genitals-deferred Musculoskeletal: Both lower extremities particularly over the toes chronic ulceration noted. Particularly on the left second toe. Diffuse erythema of the feet. Slightly warm. NEUROLOGICAL: Alert not oriented PSYCH: Dictation was performed using [employer] voice recognition software TRAVEL OUTSIDE OF THE [place] IN LAST 30 DAYS: No - HPI Notes: Dictated - Related Data Allergies/Adverse Reactions: statins Allergy (Uncoded 06/01/19 15:42) Past Medical History - General Information source: Outside Facility Records - Social History Smoking Status: Unknown if Ever Smoked Chew tobacco use (# tins/day): No Frequency of alcohol use: None Drug Abuse: None Family History: Reviewed & Not Pertinent Patient has suicidal ideation: No Patient has homicidal ideation: No - Past Medical History Cardiac Medical History: Reports: Hx Atrial Fibrillation, Hx Congestive Heart Failure, Hx Coronary Artery Disease, Hx Hypercholesterolemia, Hx Hypertension Denies: Hx Heart Attack Pulmonary Medical History: Reports: Hx Bronchitis Denies: Hx Asthma, Hx COPD, Hx Pneumonia Neurological Medical History: Denies: Hx Cerebrovascular Accident, Hx Seizures Endocrine Medical History: Reports: Hx Diabetes Mellitus Type 2 Renal/ Medical History: Denies: Hx Peritoneal Dialysis GI Medical History: Reports: Hx Gastroesophageal Reflux Disease Musculoskeletal Medical History: Reports Hx Arthritis Skin Medical History: Denies Hx MRSA Psychiatric Medical History: Reports: Hx Dementia, Hx Depression Infectious Medical History: Past Surgical History: Reports: Hx Orthopedic Surgery, Hx Pacemaker - Immunizations Immunizations up to date: Yes Hx Diphtheria, Pertussis, Tetanus Vaccination: Yes - pt thinks last tetanus was less than 5 years ago Hx Pneumococcal Vaccination: 08/17/09 Review of Systems - Review of Systems -: Yes ROS unobtainable due to patient's medical condition Physical Exam - Vital signs Vitals: Temp 97.9 F 07/26/19 12:59 - Notes Notes: Dictated Course - Re-evaluation Re-evalutation: 07/26/19 15:21 Given IV antibiotic. - Vital Signs Vital signs: Temp Pulse Resp BP Pulse Ox 97.9 F 07/26/19 12:59 - Laboratory Result Diagrams: 07/26/19 14:23 07/26/19 14:23 Laboratory results interpreted by me: 07/26/19 07/26/19 14:23 14:23 WBC 13.5 H RDW 17.3 H Lymph % (Auto) 9.2 L Absolute Neuts (auto) 11.5 H Seg Neutrophils % 84.9 H BUN 30 H Glucose 158 H Discharge - Discharge Clinical Impression: Cellulitis of both feet, Peripheral vascular disease Trophic foot ulcer Qualifiers: Laterality: left Non-pressure ulcer stage: limited to breakdown of skin Qualified Code(s): L97.521 - Non-pressure chronic ulcer of other part of left foot limited to breakdown of skin Condition: Fair Disposition: HOME, SELF-CARE Instructions: Peripheral Vascular Disease ([facility]), Cellulitis ([facility]) Additional Instructions: To be given ceftriaxone in the snf, 1 g daily Prescriptions: Ceftriaxone Sodium [Ceftriaxone] 1 gm IJ DAILY #6 vial Referrals: DHEERAJ DENSON MD [Primary Care Provider] - Follow up as needed
[2019-07-26] MEDS ORDERED: LIDOCAINE 1% INJ-PF (10 MG/ML) 30 ML SDV IM ONE (15:59)
[2019-07-26] MEDS ORDERED: CEFTRIAXONE INJ 1000 MG VIAL IM ONE ×2 (16:04→16:06)
== END 2019-07-26 18:37 | disposition home health service (06) ==
LOC: ER 12:23
DX: L03.116 Cellulitis of left lower limb (principal); L03.115 Cellulitis of right lower limb; L97.521 Non-pressure chronic ulcer of other part of left foot limited to breakdown of skin; I73.9 Peripheral vascular disease, unspecified; Z51.5 Encounter for palliative care; I48.91 Unspecified atrial fibrillation; I50.9 Heart failure, unspecified; I11.0 Hypertensive heart disease with heart failure; I25.10 Atherosclerotic heart disease of native coronary artery without angina pectoris; E78.00 Pure hypercholesterolemia, unspecified; Z95.0 Presence of cardiac pacemaker
CPT/HCPCS: 99284; 96374; 96375; 36415; 87040; 85025; 80053; J3490; J0696

== ENCOUNTER 2019-08-02 14:50 | Emergency (ER) | payer MEDICARE, OTHER ==
[2019-08-02 16:05] LABS: ABSOLUTE BASOPHILS # (AUTO) 0.1 10^3/uL (0.0-0.2); ABSOLUTE EOSINOPHILS # (AUTO) 0.1 10^3/uL (0.0-0.6); ABSOLUTE LYMPHOCYTES (AUTO) 1.3 10^3/uL (0.5-4.7); ABSOLUTE MONOCYTES (AUTO) 0.5 10^3/uL (0.1-1.4); ABSOLUTE NEUT (AUTO) 4.9 10^3/uL (1.7-8.2); EOSINOPHILS % (AUTO) 1.3 % (0-6); HEMATOCRIT 36.6 % (37.9-51.0); HEMOGLOBIN 12.3 g/dL (13.5-17.0); LYMPHOCYTES % (AUTO) 19.2 % (13-45); MEAN CORPUSCULAR HGB CONC 33.8 g/dL (32.0-36.0); MEAN CORPUSCULAR VOLUME 92 fl (80-97); MONOCYTES % (AUTO) 6.7 % (3-13); PLATELET COUNT 161 10^3/uL (150-450); RED BLOOD COUNT 3.98 10^6/uL (4.35-5.55); RED CELL DISTRIBUTION WIDTH 18.3 % (11.5-14.0); SEGMENTED NEUTROPHILS % (AUTO) 71.8 % (42-78); TOTAL CELLS COUNTED % (AUTO) 100 %; WHITE BLOOD COUNT 6.8 10^3/uL (4.0-10.5)
[2019-08-02 16:36] LABS: ALBUMIN 3.3 g/dL (3.5-5.0); ALKALINE PHOSPHATASE 115 U/L (38-126); ANION GAP 10 (5-19); ASPARTATE AMINO TRANSFERASE 32 U/L (17-59); BILIRUBIN,DIRECT 0.2 mg/dL (0.0-0.4); BILIRUBIN,TOTAL 0.5 mg/dL (0.2-1.3); BLOOD UREA NITROGEN 13 mg/dL (7-20); CALCIUM 8.8 mg/dL (8.4-10.2); CARBON DIOXIDE 29 mmol/L (22-30); CHLORIDE 98 mmol/L (98-107); GLUCOSE 121 mg/dL (75-110); POTASSIUM 3.7 mmol/L (3.6-5.0); TOTAL PROTEIN 6.7 g/dL (6.3-8.2)
--- NOTE | 2019-08-02 18:14 | RADIOLOGY REPORT (SQ) ---
EXAM DESCRIPTION: FOOT RIGHT 2 VIEWS COMPLETED DATE/TIME: 08/02/2019 6:02 pm REASON FOR STUDY: pain COMPARISON: None. NUMBER OF VIEWS: Three views. TECHNIQUE: AP, lateral and oblique radiographic images acquired of the right foot. LIMITATIONS: None. FINDINGS: MINERALIZATION: Normal. BONES: No acute fracture or dislocation. No worrisome bone lesions. JOINTS: No effusions. SOFT TISSUES: No soft tissue swelling. No foreign body. OTHER: No other significant finding. IMPRESSION: NEGATIVE STUDY OF THE RIGHT FOOT. NO RADIOGRAPHIC EVIDENCE OF ACUTE INJURY. TECHNICAL DOCUMENTATION: JOB ID: [id number] [employer]- All Rights Reserved Reading location - IP/workstation name: [email or web address]
--- NOTE | 2019-08-02 18:16 | RADIOLOGY REPORT (SQ) ---
EXAM DESCRIPTION: FOOT LEFT 2 VIEWS COMPLETED DATE/TIME: 08/02/2019 6:02 pm REASON FOR STUDY: pain COMPARISON: None. NUMBER OF VIEWS: Three views. TECHNIQUE: AP, lateral and oblique radiographic images acquired of the left foot. LIMITATIONS: None. FINDINGS: MINERALIZATION: Normal. BONES: No acute fracture or dislocation. No worrisome bone lesions. JOINTS: No effusions. SOFT TISSUES: Dorsal soft tissue swelling. OTHER: No other significant finding. IMPRESSION: Soft tissue swelling with no acute osseous findings. TECHNICAL DOCUMENTATION: JOB ID: [id number] [employer]- All Rights Reserved Reading location - IP/workstation name: [email or web address]
--- NOTE | 2019-08-02 19:43 | ER Document Report ---
ED Extremity Problem, Lower - General Chief Complaint: Foot Pain Stated Complaint: FOOT PAIN Time Seen by Provider: 08/02/19 17:07 Primary Care Provider: DHEERAJ DENSON MD [Primary Care Provider] - Follow up as needed Mode of Arrival: Medic Information source: Patient, Emergency Med Personnel Cannot obtain history due to: Dementia TRAVEL OUTSIDE OF THE [place] IN LAST 30 DAYS: No - HPI Notes: Patient is brought in due to referral from the hospice nurse. Hospice nurse said that she felt the patient foot wounds looked worse and wanted an evaluation. She states that she felt that possibly he could be septic from these wounds. Patient does not have any significant complaints however patient has dementia and is a very poor historian. There is no no new pain. Nothing known that makes the symptoms better or worse. There is no known radiation of the pain. Patient is unable to describe his symptoms to me due to his dementia. He cannot characterize his symptoms due to the dementia. Patient has had no known fevers vomiting or diarrhea. Apparently he has had some worse confusion than baseline. - Related Data Allergies/Adverse Reactions: statins Allergy (Uncoded 06/01/19 15:42) Past Medical History - General Information source: Emergency Med Personnel Cannot obtain history due to: Dementia, Other - History is tough to ascertain due to the patient's dementia. But he does state that he used to be a smoker which seems reasonable that he may have long-term memory of this. - Social History Smoking Status: Former Smoker Frequency of alcohol use: None Drug Abuse: None Family History: Reviewed & Not Pertinent Patient has suicidal ideation: No Patient has homicidal ideation: No - Past Medical History Cardiac Medical History: Reports: Hx Atrial Fibrillation, Hx Congestive Heart Failure, Hx Coronary Artery Disease, Hx Hypercholesterolemia, Hx Hypertension Denies: Hx Heart Attack Pulmonary Medical History: Reports: Hx Bronchitis Denies: Hx Asthma, Hx COPD, Hx Pneumonia Neurological Medical History: Denies: Hx Cerebrovascular Accident, Hx Seizures Endocrine Medical History: Reports: Hx Diabetes Mellitus Type 2 Renal/ Medical History: Denies: Hx Peritoneal Dialysis GI Medical History: Reports: Hx Gastroesophageal Reflux Disease Musculoskeletal Medical History: Reports Hx Arthritis Skin Medical History: Denies Hx MRSA Psychiatric Medical History: Reports: Hx Dementia, Hx Depression Infectious Medical History: Past Surgical History: Reports: Hx Orthopedic Surgery, Hx Pacemaker - Immunizations Immunizations up to date: Yes Hx Diphtheria, Pertussis, Tetanus Vaccination: Yes - pt thinks last tetanus was less than 5 years ago Hx Pneumococcal Vaccination: 08/17/09 Review of Systems - Review of Systems -: Yes ROS unobtainable due to patient's medical condition - Patient's dementia prevents obtaining review of symptoms Physical Exam - Vital signs Vitals: Temp Pulse Resp BP Pulse Ox 97.8 F 59 L 16 116/70 98 08/02/19 15:01 08/02/19 15:01 08/02/19 15:01 08/02/19 15:01 08/02/19 15:01 Interpretation: Normal - General General appearance: Appears well, Alert In distress: None - HEENT Head: Normocephalic, Atraumatic Eyes: Normal Pupils: PERRL - Respiratory Respiratory status: No respiratory distress Chest status: Nontender Breath sounds: Normal Chest palpation: Normal - Cardiovascular Rhythm: Regular Heart sounds: Normal auscultation Murmur: No - Abdominal Inspection: Normal Distension: No distension Bowel sounds: Normal Tenderness: Nontender Organomegaly: No organomegaly - Back Back: Normal, Nontender - Extremities General upper extremity: Normal inspection, Nontender, Normal color, Normal ROM, Normal temperature General lower extremity: Other - Patient can flex and extend toes on both lower external knees. He has a 1+ dorsalis pedis palpable pulse on both lower extremity's. He does have some soft tissue wounds to the second toe of the left foot and the heel of the right foot. These wounds appear chronic and do not appear acutely infected. Patient's lower external exam does have 3+ pitting edema bilaterally consistent with someone who has chronic lymphedema.. No: Triston's sign - Neurological Cognition: Confused Orientation: Disoriented to place, Disoriented to time Carol Coma Scale Eye Opening: Spontaneous Carol Coma Scale Verbal: Confused Carol Coma Scale Motor: Obeys Commands Schlater Coma Scale Total: 14 Speech: Normal Sensory: Normal - Psychological Associated symptoms: Normal affect, Normal mood - Skin Skin Temperature: Warm Skin Moisture: Dry Course - Re-evaluation Re-evalutation: 08/02/19 19:44 Patient was sent by hospice nurse due to concerns for sepsis. However patient is not hypotensive or tachycardic. He has no fever. He has no obvious source as the wounds on the feet appear chronic. Patient also has no fever. I believe the patient is safe for discharge back to the assisted. X-rays did not show any evidence of osteomyelitis. Patient is currently receiving antibiotics so I do not feel that any further intervention at this time is warranted. - Vital Signs Vital signs: Temp Pulse Resp BP Pulse Ox 97.8 F 59 L 16 116/70 98 08/02/19 15:01 08/02/19 15:01 08/02/19 15:01 08/02/19 15:01 08/02/19 15:01 - Laboratory Result Diagrams: 08/02/19 15:35 08/02/19 15:35 Laboratory results interpreted by me: 08/02/19 08/02/19 15:35 15:35 RBC 3.98 L Hgb 12.3 L Hct 36.6 L RDW 18.3 H Sodium 136.8 L Glucose 121 H Albumin 3.3 L - Diagnostic Test Radiology reviewed: Image reviewed, Reports reviewed Discharge - Discharge Clinical Impression: Wound of foot, Lymphedema Dementia Qualifiers: Dementia type: Alzheimer's disease Alzheimer's disease onset: late-onset Dementia behavioral disturbance: without behavioral disturbance Qualified Code(s): 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
[2019-08-02 19:49] VITALS: BP 128/59
== END 2019-08-02 20:51 ==
LOC: ER 14:50
DX: I89.0 Lymphedema, not elsewhere classified (principal); S91.302A Unspecified open wound, left foot, initial encounter; S91.301A Unspecified open wound, right foot, initial encounter; X58.XXXA Exposure to other specified factors, initial encounter; G30.1 Alzheimer's disease with late onset; F02.80 Dementia in other diseases classified elsewhere, unspecified severity, without behavioral disturbance, psychotic disturbance, mood disturbance, and anxiety; I48.91 Unspecified atrial fibrillation; I50.9 Heart failure, unspecified; I25.10 Atherosclerotic heart disease of native coronary artery without angina pectoris; E78.00 Pure hypercholesterolemia, unspecified; I11.0 Hypertensive heart disease with heart failure; E11.9 Type 2 diabetes mellitus without complications; Z51.5 Encounter for palliative care
CPT/HCPCS: 36415; 80053; 85025; 99284